=== PATIENT | female | born 1955 | race Caucasian/White ===

== ENCOUNTER 2016-07-08 13:50 | Outpatient (RCR) | payer MEDICARE ==
[~2016-07-08 13:50] MED LIST: ANAS1TAB44 PO; ASCO500T20 GT; ASP81CT PO; CA C1TAB70 PO; CALC-656 PO; CEPH500C PO; FURO20TA4 PO; GABA300C PO; HYDR-34 PO; HYDR-3714 PO; HYDR12.56 PO; INSASP10V SQ; INSU100C7 SQ; INSU100V5 SQ; LISI10TA2 PO; LISI20TA PO; METF-380 PO; OMEP20TA2 PO; OXYB5TAB9 PO; SIMV40TA PO; VITA1CAP59 PO; ZINC100T3 PO
[2016-07-08 14:04] LABS: BASOPHILS % (AUTO) 0 % (0-10); EOSINOPHILS # (AUTO) 0.2 10^3/uL (0.0-0.3); EOSINOPHILS % (AUTO) 3 % (0-10); LYMPHOCYTES # (AUTO) 2.3 X 10^3 (1.0-4.0); LYMPHOCYTES % (AUTO) 26 % (12-44); MEAN CORPUSCULAR HEMOGLOBIN 28 PG (25-34); MEAN CORPUSCULAR HGB CONC 32 G/DL (32-36); MEAN CORPUSCULAR VOLUME 86 FL (80-99); MEAN PLATELET VOLUME 9.9 FL (7.4-10.4); MONOCYTES # (AUTO) 0.6 X 10^3 (0.0-1.0); MONOCYTES % (AUTO) 7 % (0-12); NEUTROPHILS # (AUTO) 5.7 X 10^3 (1.8-7.8); NEUTROPHILS % (AUTO) 64 % (42-75); PLATELET COUNT 335 10^3/uL (130-400); RED BLOOD COUNT 4.97 10^6/uL (4.35-5.85)
[2016-07-08 15:21] LABS: ALANINE AMINOTRANSFERASE 21 U/L (0-55); ANION GAP 8 MMOL/L (5-14); ASPARTATE AMINO TRANSFERASE 19 U/L (5-34); BILIRUBIN,TOTAL 0.4 MG/DL (0.1-1.0); BLOOD UREA NITROGEN 16 MG/DL (7-18); BUN/CREATININE RATIO 19; CALCIUM 9.9 MG/DL (8.5-10.1); CARBON DIOXIDE 26 MMOL/L (21-32); CHLORIDE 107 MMOL/L (98-107); CREATININE SERUM 0.85 MG/DL (0.60-1.30); GFR ESTIMATED > 60; GLUCOSE 166 MG/DL (70-105); POTASSIUM 4.3 MMOL/L (3.6-5.0); SODIUM 141 MMOL/L (135-145); TOTAL PROTEIN 6.6 G/DL (6.4-8.2)
[2016-07-08 15:42] LABS: THYROID STIMULATING HORMONE 2.09 UIU/ML (0.35-4.94)
== END 2016-10-06 | disposition home or self-care (01) ==
LOC: ONC 13:50
PROVIDERS: ATTEND Internal Medicine Hematology & Oncology
DX: C50.911 Malignant neoplasm of unspecified site of right female breast (principal); Z85.41 Personal history of malignant neoplasm of cervix uteri; I10 Essential (primary) hypertension; E11.9 Type 2 diabetes mellitus without complications; E66.9 Obesity, unspecified; Z68.42 Body mass index [BMI] 45.0-49.9, adult; M25.559 Pain in unspecified hip; Z87.891 Personal history of nicotine dependence; Z79.899 Other long term (current) drug therapy; Z17.0 Estrogen receptor positive status [ER+]; Z90.710 Acquired absence of both cervix and uterus; Z92.3 Personal history of irradiation; Z92.21 Personal history of antineoplastic chemotherapy
CPT/HCPCS: 36415; 80053; 84439; 84443; 85025; 99213

== ENCOUNTER 2017-07-07 14:03 | Outpatient (RCR) | payer MEDICARE ==
[2017-07-07 14:19] LABS: BASOPHILS # (AUTO) 0.1 10^3/uL (0.0-0.1); BASOPHILS % (AUTO) 1 % (0-10); EOSINOPHILS # (AUTO) 0.1 10^3/uL (0.0-0.3); EOSINOPHILS % (AUTO) 1 % (0-10); HEMATOCRIT 43 % (35-52); HEMOGLOBIN 13.9 G/DL (11.5-16.0); LYMPHOCYTES # (AUTO) 2.5 X 10^3 (1.0-4.0); LYMPHOCYTES % (AUTO) 26 % (12-44); MEAN CORPUSCULAR HEMOGLOBIN 28 PG (25-34); MEAN CORPUSCULAR HGB CONC 32 G/DL (32-36); MEAN CORPUSCULAR VOLUME 87 FL (80-99); MEAN PLATELET VOLUME 10.3 FL (7.4-10.4); MONOCYTES # (AUTO) 0.7 X 10^3 (0.0-1.0); MONOCYTES % (AUTO) 7 % (0-12); NEUTROPHILS # (AUTO) 6.4 X 10^3 (1.8-7.8); NEUTROPHILS % (AUTO) 65 % (42-75); PLATELET COUNT 301 10^3/uL (130-400); RED BLOOD COUNT 4.97 10^6/uL (4.35-5.85); RED CELL DISTRIBUTION WIDTH 14.9 % (10.0-14.5); WHITE BLOOD COUNT 9.8 10^3/uL (4.3-11.0)
[2017-07-07 14:39] LABS: ALANINE AMINOTRANSFERASE 19 U/L (0-55); ALKALINE PHOSPHATASE 100 U/L (40-136); BILIRUBIN,TOTAL 0.6 MG/DL (0.1-1.0); BUN/CREATININE RATIO 18; CALCIUM 10.1 MG/DL (8.5-10.1); CARBON DIOXIDE 30 MMOL/L (21-32); CHLORIDE 107 MMOL/L (98-107); CREATININE SERUM 0.78 MG/DL (0.60-1.30); GFR ESTIMATED > 60; GLUCOSE 131 MG/DL (70-105); POTASSIUM 4.7 MMOL/L (3.6-5.0); SODIUM 141 MMOL/L (135-145); TOTAL PROTEIN 7.2 GM/DL (6.4-8.2)
== END 2017-10-05 | disposition home or self-care (01) ==
LOC: ONC 14:03
PROVIDERS: ATTEND Internal Medicine Hematology & Oncology
DX: Z08 Encounter for follow-up examination after completed treatment for malignant neoplasm (principal); Z85.3 Personal history of malignant neoplasm of breast; Z85.41 Personal history of malignant neoplasm of cervix uteri; I10 Essential (primary) hypertension; E11.9 Type 2 diabetes mellitus without complications; E66.9 Obesity, unspecified; Z68.42 Body mass index [BMI] 45.0-49.9, adult; F17.210 Nicotine dependence, cigarettes, uncomplicated; M25.561 Pain in right knee; M25.562 Pain in left knee; Z79.899 Other long term (current) drug therapy; Z17.0 Estrogen receptor positive status [ER+]; Z90.710 Acquired absence of both cervix and uterus; Z92.3 Personal history of irradiation; Z92.21 Personal history of antineoplastic chemotherapy
CPT/HCPCS: 36415; 80053; 85025; 99213

== ENCOUNTER → 2017-09-06 | Outpatient (CLI) | payer MEDICARE ==
--- NOTE | 2017-09-06 17:06 | Diagnostic Imaging Report ---
Bilateral screening mammogram 2D views with tomosynthesis The current study was also evaluated with a Computer Aided Detection (CAD) system. Indication: Screening. No current complaints stated on the questionnaire. COMPARISON: 09/02/2016. Findings: The breasts are composed of a scattered fibroglandular densities. There are post lumpectomy changes and surgical clips seen in the medial aspect of the right breast. Scattered benign-appearing calcifications are seen. Allowing for technique and positional differences, no suspicious change is seen. IMPRESSION: No significant change. ACR BI-RADS Category 2: Benign findings. Result letter will be mailed to the patient. Note: At least 10% of breast cancer is not imaged by mammography. Dictated by: Dictated on workstation # [id number]
== END ==
LOC: RAD 08:50
PROVIDERS: ATTEND Internal Medicine Hematology & Oncology
DX: Z12.31 Encounter for screening mammogram for malignant neoplasm of breast (principal)
CPT/HCPCS: 77067

== ENCOUNTER 2017-11-24 00:01 | Emergency (ER) | payer OTHER, MEDICARE ==
[~2017-11-24] VITALS: Ht 170.2 cm; Wt 137.4 kg
[2017-11-24] MEDS ORDERED: INSU100I29 (00:34)
[2017-11-24] MEDS ORDERED: INSU100I14 (00:34)
[2017-11-24] MEDS ORDERED: DICL75TA2 (00:34)
[2017-11-24] MEDS ORDERED: TRAM-42 PO (01:45)
[2017-11-24] MEDS ORDERED: CYCL10TA9 PO (01:45)
[2017-11-24] MEDS ORDERED: ORPHENADRINE 60 MG/2 ML (NORFLEX) AMP IM ONE (01:45)
[2017-11-24] MEDS ORDERED: KETOROLAC 60 MG/2 ML VIAL IM ONE (01:45)
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
[2017-11-24 01:53] VITALS: BP 184/79
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
== END 2017-11-24 01:53 | disposition home or self-care (01) ==
LOC: EDUNIT# 00:01 → ER 00:05
DX: S13.4XXA Sprain of ligaments of cervical spine, initial encounter (principal); S23.3XXA Sprain of ligaments of thoracic spine, initial encounter; S39.012A Strain of muscle, fascia and tendon of lower back, initial encounter; G89.29 Other chronic pain; E78.00 Pure hypercholesterolemia, unspecified; I10 Essential (primary) hypertension; K21.9 Gastro-esophageal reflux disease without esophagitis; E11.40 Type 2 diabetes mellitus with diabetic neuropathy, unspecified; F17.210 Nicotine dependence, cigarettes, uncomplicated; Z85.3 Personal history of malignant neoplasm of breast; Z88.8 Allergy status to other drugs, medicaments and biological substances; Z79.82 Long term (current) use of aspirin; Z79.84 Long term (current) use of oral hypoglycemic drugs; V49.40XA Driver injured in collision with unspecified motor vehicles in traffic accident, initial encounter
CPT/HCPCS: 70450; 72125; 72128; 72131; 73030; 96372

== ENCOUNTER 2018-02-21 05:52 | Outpatient (CLI) | payer MEDICARE ==
[~2018-02-21] VITALS: Ht 170.2 cm; Wt 132.7 kg
[~2018-02-21 05:52] MED LIST changes: +AMOX-358 PO; +ASPI-983 PO; +CYCL10TA9 PO; +DICL75TA2; +DICL75TA2 PO; +FURO-125 PO; +GABA-488 PO; +INSU100I14; +INSU100I14 SQ; +INSU100I29; +INSU100I29 SQ; +METF10002 PO; +NITR0.4T SL; +OMEG-109 PO; +OMEP20CA12 PO; +PANT40TA2 PO; +QUIN10TA PO; +QUIN20TA16 PO; +RT-ALBUINH IH; +SIMV40TA4 PO; +TRAM-42 PO; +VITA1CAP PO; +[UNRECOGNIZED DRUG - OTHER] IJ
[2018-02-21] MEDS ORDERED: QUIN20TA16 PO (10:27)
[2018-02-21] MEDS ORDERED: PANT40TA3 PO (10:27)
== END 2018-02-21 10:37 | disposition home or self-care (01) ==
LOC: PREOP 05:52
PROVIDERS: ATTEND Surgery
DX: Z01.818 Encounter for other preprocedural examination (principal)

== ENCOUNTER 2018-02-28 06:43 | Day surgery (SDC) | payer MEDICARE ==
[~2018-02-28] VITALS: Ht 170.2 cm; Wt 132.7 kg
[~2018-02-28 06:43] MED LIST changes: +PANT40TA3 PO
--- OUTSIDE RECORDS SUMMARY | 2018-02-28 07:03 | XMS REPORT ---
Author Author ELIAS BLAKE Organization [facility] Address [address] [place] [address] Care Team Providers Care Director Clinical Applications Name Role Phone ELIAS BLAKE Unavailable PROBLEMS Type Condition ICD9-CM Code ETO04-FY Code Onset Dates Condition Status SNOMED Code Problem Renal insufficiency N28.9 Active 835881615 Problem History of long-term use of multiple prescription drugs Z92.29 Active 745419690 Problem Gastroesophageal reflux disease without esophagitis K21.9 Active 600438835 Problem Iron deficiency anemia, unspecified iron deficiency anemia type D50.9 Active 63861872 Problem Low hemoglobin D64.9 Active 010037387 Problem Arthritis M19.90 Active 5809568 Problem Stress incontinence in female N39.3 Active 10019516 Problem Chronic obstructive pulmonary disease, unspecified COPD type J44.9 Active 67370345 Problem BMI 45.0-49.9, adult Z68.42 Active 885128092 Problem Gastrointestinal hemorrhage, unspecified K92.2 Active 76922185 Problem Iron deficiency anemia due to chronic blood loss D50.0 Active 813306324 Problem Lumbar back pain with radiculopathy affecting left lower extremity M54.17 Active 894847447 Problem [facility] current use of insulin Z79.4 Active 791322892 Problem Polyneuropathy associated with underlying disease G63 Active 408493565 Problem Tobacco abuse Z72.0 Active 49236372 Problem Type 2 diabetes mellitus with diabetic neuropathy E11.40 Active 61384249 Problem Essential hypertension I10 Active 90255980 ALLERGIES Substance Reaction Event Type Date Status Wellbutrin Unknown Drug Allergy Jul, Active Lovastatin Unknown Drug Allergy Jul, Active ENCOUNTERS Encounter Location Date Diagnosis [facility] [address] [facility] [id number] [place] [id number] Feb, Iron deficiency anemia due to chronic blood loss D50.0 [facility] [address] [id number] [id number] January, Iron deficiency anemia, unspecified iron deficiency anemia type D50.9 [address] [address] January, [id number] [place] [address] 29266- 2527 January, BMI 45.0-49.9, adult Z68.42 and Low hemoglobin D64.9 [address] [place] [id number] [place] [address] 31279- 6929 January, [address] [place] [id number] [place] [address] 92716- 5291 January, [facility] current use of insulin Z79.4 [address] [place] [id number] [place] [address] 74431- 4843 January, Chest congestion R09.89 ; Pneumonia of both lower lobes due to infectious organism J18.1 ; Chronic obstructive pulmonary disease, unspecified COPD type J44.9 and BMI 45.0-49.9, adult Z68.42 [id number] [place] [address] 74794- 2697 January, Breathing problem R06.9 ; Type 2 diabetes mellitus with diabetic neuropathy E11.40 ; [facility] current use of insulin Z79.4 ; Essential hypertension I10 ; Gastroesophageal reflux disease without esophagitis K21.9 ; Arthritis M19.90 ; Renal insufficiency N28.9 ; Stress incontinence in female N39.3 ; Polyneuropathy associated with underlying disease G63 ; BMI 45.0-49.9, adult Z68.42 and CAD (coronary artery disease) I25.10 [id number] [place] [address] 15331- 6312 Dec, [address] [id number] [place] [address] 19936- 6326 Dec, [address] [id number] [place] [address] 84903- 8087 Dec, [address] [id number] [place] [address] 88020- 3347 Nov, Type 2 diabetes mellitus with diabetic neuropathy E11.[address] [address]- [address]35 Oct, Arthritis M19.90 ; CAD (coronary artery disease) I25.10 ; Type 2 diabetes mellitus with diabetic neuropathy E11.40 ; [facility] current use of insulin Z79.4 ; Lumbar back pain with radiculopathy affecting left lower extremity M54.17 ; History of long-term use of multiple prescription drugs Z92.29 ; Essential hypertension I10 ; Renal insufficiency N28.9 ; Stress incontinence in female N39.3 ; Gastroesophageal reflux disease without esophagitis K21.9 ; Tobacco abuse Z72.0 and BMI 45.0-49.9, adult Z68.42 [id number] [place] [address] 36234- 8665 Aug, [address] 00933- 7781 Aug, [id number] [place] [address] 52085- 5362 Jul, CAD (coronary artery disease) I25.10 ; Type 2 diabetes mellitus with diabetic neuropathy E11.40 ; [facility] current use of insulin Z79.4 ; Lumbar back pain with radiculopathy affecting left lower extremity M54.17 ; History of long-term use of multiple prescription drugs Z92.29 ; Essential hypertension I10 ; Renal insufficiency N28.9 ; Stress incontinence in female N39.3 ; Gastroesophageal reflux disease without esophagitis K21.9 ; Tobacco abuse Z72.0 ; Arthritis M19.90 ; BMI 45.0-49.9, adult Z68.42 and Encounter for immunization Z23 [address] [id number] [place] [address] 31378- 2326 May, [id number] [place] [address] 59436- 7702 Apr, CAD (coronary artery disease) I25.10 ; Type 2 diabetes mellitus with diabetic neuropathy E11.40 ; [facility] current use of insulin Z79.4 ; Lumbar back pain with radiculopathy affecting left lower extremity M54.17 ; History of long-term use of multiple prescription drugs Z92.29 ; Essential hypertension I10 ; Renal insufficiency N28.9 ; Stress incontinence in female N39.3 ; Gastroesophageal reflux disease without esophagitis K21.9 and Tobacco abuse Z72.0 [address] [address]78- 3213 Mar, CAD (coronary artery disease) I25.10 and Type 2 diabetes mellitus with diabetic neuropathy E11.40 [address] 03432- 6266 Nov, Type 2 diabetes mellitus with diabetic neuropathy E11.40 ; [facility] current use of insulin Z79.4 ; Lumbar back pain with radiculopathy affecting left lower extremity M54.17 ; History of long-term use of multiple prescription drugs Z92.29 ; Essential hypertension I10 ; Renal insufficiency N28.9 ; Stress incontinence in female N39.3 ; Gastroesophageal reflux disease without esophagitis K21.9 ; CAD (coronary artery disease) I25.10 and Tobacco abuse Z72.0 [address] [place] 70410- 3076 Nov, [address] [id number] [place] [address] 08607- 5173 Aug, Type 2 diabetes mellitus with diabetic neuropathy E11.40 ; [facility] current use of insulin Z79.4 ; Lumbar back pain with radiculopathy affecting left lower extremity M54.17 ; History of long-term use of multiple prescription drugs Z92.29 ; Essential hypertension I10 ; Renal insufficiency N28.9 ; Stress incontinence in female N39.3 ; Gastroesophageal reflux disease without esophagitis K21.9 ; CAD (coronary artery disease) I25.10 ; Tobacco abuse Z72.0 and Encounter for immunization Z23 [address] [place] [id number] [place] [address] 58021- 3698 Jul, Type 2 diabetes mellitus with diabetic neuropathy E11.40 [place] [address] [place] [address] 62189- 9909 May, [facility] [id number] [place] [address] 74453- 4595 May, [facility] [id number] [place] [address] 12464- 6171 May, Type 2 diabetes mellitus with diabetic neuropathy E11.40 ; [facility] current use of insulin Z79.4 ; Lumbar back pain with radiculopathy affecting left lower extremity M54.17 ; History of long-term use of multiple prescription drugs Z92.29 ; Essential hypertension I10 ; Renal insufficiency N28.9 ; Stress incontinence in female N39.3 ; Gastroesophageal reflux disease without esophagitis K21.9 ; CAD (coronary artery disease) I25.10 and Tobacco abuse Z72.0 [facility] [id number] [place] [address] 15467- 8276 May, [facility] [id number] [place] [address] 04941- 8637 Apr, [facility] [id number] [place] [address] 18196- 8673 Apr, [facility] [id number] [place] [address] 74356- 3676 Mar, [facility] [address] [place] [address] 86970- 1065 Feb, [facility] [id number] [place] [address] 05119- 9826 Feb, [facility] [id number] [place] [address] 84040- 0807 Feb, [facility] [id number] [place] [address] 34991- 1720 Feb, [facility] [address] [place] [address] 47281- 1259 January, Type 2 diabetes mellitus with diabetic neuropathy E11.40 ; [facility] current use of insulin Z79.4 ; Lumbar back pain with radiculopathy affecting left lower extremity M54.17 ; History of long-term use of multiple prescription drugs Z92.29 ; Essential hypertension I10 ; Renal insufficiency N28.9 ; Stress incontinence in female N39.3 ; Gastroesophageal reflux disease without esophagitis K21.9 ; CAD (coronary artery disease) I25.10 and Tobacco abuse Z72.0 [address] [id number] [place] [address] 51738- 1643 January, [address] [place] [id number] [place] [address] 64861- 2166 Nov, [id number] [place] [address] 81403- 9914 Nov, [id number] [place] [address] 00074- 9432 Oct, [address] [id number] [place] [address] 57622- 3253 Sep, Type 2 diabetes mellitus with diabetic neuropathy E11.40 ; [facility] current use of insulin Z79.4 ; Lumbar back pain with radiculopathy affecting left lower extremity M54.17 and History of long-term use of multiple prescription drugs Z92.29 [address] [id number] [place] [address] 03140- 3175 Aug, [address] [place] [id number] [place] [address] 58056- 8192 Aug, Type 2 diabetes mellitus with diabetic neuropathy E11.40 ; [facility] current use of insulin Z79.4 ; Lumbar back pain with radiculopathy affecting left lower extremity M54.17 ; Polyneuropathy associated with underlying disease G63 ; Tobacco abuse Z72.0 ; Essential hypertension I10 ; Incontinence in female N39.3 ; CAD (coronary artery disease) I25.10 ; Gastroesophageal reflux disease without esophagitis K21.9 ; Renal insufficiency N28.9 and Right knee pain M25.561 [id number] [place] [address] 70976- 4383 Jul, Type 2 diabetes mellitus with diabetic neuropathy E11.40 ; [facility] current use of insulin Z79.4 ; Encounter for immunization Z23 ; Essential hypertension I10 ; Lumbar back pain with radiculopathy affecting left lower extremity M54.17 ; History of breast cancer Z85.3 and Polyneuropathy associated with underlying disease G63 [id number] [place] [address] 11458- 4473 Jun, [address] [id number] [place] [address] 94634- 3529 Jun, [address] [id number] [place] [address] 84850- 3821 May, [address] [id number] [place] [address] 86461- 7747 May, [address] [id number] [place] [address] 10862- 1393 May, [address] [id number] [place] [address] 63815- 2749 May, Pain in joint, lower leg 719.46 ; Unspecified arthropathy, site unspecified 716.90 and Back pain 724.5 [id number] [place] [address] 47086- 9267 May, Diabetes mellitus without mention of complication, type II or unspecified type, not stated as uncontrolled 250.00 ; Essential hypertension , benign 401.1 and Other chronic pain 338.29 [address] [place] [id number] [place] [address] 82125- 3761 Apr, [address] [id number] [place] [address] 84885- 1824 Mar, Shingles 053.9 ; Diabetes mellitus without mention of complication, type II or unspecified type, not stated as uncontrolled 250.00 and Skin infection 686.9 [id number] [place] [address] 64407- 1519 Mar, Back pain 724.5 ; Other chronic pain 338.29 and Pain in joint, lower leg 719.46 [address], [place] [address]- 6151 Mar, [address] [place] [address] 88039- 1347 Mar, Diabetes mellitus without mention of complication, type II or unspecified type, not stated as uncontrolled 250.00 [id number] [place] [address] 23737- 4929 Mar, Diabetes mellitus without mention of complication, type II or unspecified type, not stated as uncontrolled 250.00 [address] [id number] [place] [address] 24575- 4427 Mar, [address] [place] [address] 53747- 6256 Feb, Back pain 724.5 ; Abnormal finding on radiology exam 793.99 and History of breast cancer V10.3 [address] [place] [address] 00126- 8609 Feb, Onychomycosis 110.1 and Type I diabetes mellitus with neurological manifestations 250.61 [address], [place] [address]- 4887 Feb, [address], [place] [address]- 4794 Feb, Back pain 724.5 ; Abnormal finding on radiology exam 793.99 and History of breast cancer V10.3 [address] [place], [place] [address]- 8228 Feb, Abnormal finding on radiology exam 793.99 ; History of breast cancer V10.3 and Back pain 724.5 [address] [place] [address] 33132- 7867 January, [address] [id number] [place] [address] 70122- 1343 January, Abnormal finding on radiology exam 793.99 ; Back pain 724.5 and History of breast cancer V10.3 [facility] [address] [id number] [place] [address]- 0346 January, [facility] [address] [id number] [place] [address]22 January, [facility] [address] [id number] [place] 1995 January, [facility] [address] [id number] [place] [address]- 4376 Dec, [facility] [address] [id number] [place] [address]- 1947 Dec, [facility] [address] [facility] [id number] [place] [address]- 9898 Dec, [facility] [address] [id number] [place] [address]- 2906 Nov, [facility] [address] [id number] [place] [address]- 5793 Nov, [facility] [address] [facility] [id number], [place] [address]- 7659 Nov, [facility] [address] [id number] [place] [address]- 8757 Nov, [facility] [address] [id number], [place] [address]- 8147 Nov, [facility] [address] [id number] [place] 5446 Nov, [facility] [address] [id number] [place] [address]- 7846 Nov, [facility] [address] [id number], [place] [address]- 4416 Nov, [facility] [address] [id number], [place] [address]- 5046 Nov, [facility] [place] [facility] [address] [id number] [place] [address]- 1467 Nov, [facility] [place] [facility] [address] [id number] [place] [address]- 6833 Oct, 2014 [facility] [place] [facility] [address] [id number] [place] [address]- 0656 Oct, 2014 [facility] [place] [facility] [address] [id number] [place] [address]- 8325 Oct, 2014 [facility] [place] [facility] [address] [id number] [place] [address]- 1569 Oct, 2014 [facility] [place] [facility] [address] [id number] [place] [address]- 4113 Oct, 2014 [facility] [place] [facility] [address] [id number] [place] [address]- 2080 Oct, 2014 [facility] [place] [facility] [address] [id number] [place] [address]- 5048 Oct, 2014 [facility] [place] [facility] [address] [id number] [place] [address]- 3981 Oct, 2014 [facility] [place] [facility] [address] [facility] [id number] [place] [address]- 2800 Oct, [facility] [place] [facility] [address] [id number] [place] [address] 2542 Oct, 2014 [facility] [place] [facility] [address] [id number] [place] [address]- 2642 Oct, [facility] [place] [facility] [address] [id number] [place] [address]- 6314 Oct, [facility] [place] [facility] [address] [id number] [place] [address]- 2816 Sep, [facility] [place] [facility] [address] [id number] [place] [address]- 9983 Sep, [facility] [place] [facility] [address] [id number] [place] [address]- 4202 Sep, [facility] [place] [facility] [address] [id number] [place] [address]- 9069 Sep, [facility] [place] [facility] [address] [id number] [place] [address]- 2740 Sep, [facility] [place] [facility] [address] [id number] [place] [address]- 0835 Sep, [facility] [place] [facility] [address] [id number] [place] [address]- 2967 Sep, [facility] [place] [facility] [address] [id number] [place] [address]- 0018 Sep, [facility] [place] [facility] [address] [id number] [place] [address]- 6349 Sep, [facility] [place] [facility] [address] [id number] [place] [address]- 4283 Sep, [facility] [place] [facility] [address] [id number] [place] [address]- 9200 Sep, [facility] [place] [facility] [address] [id number], [place] [address]- 1233 Sep, [facility] [place] [facility] [address] [id number], [place] [address]- 4244 Sep, [facility] [place] [facility] [address] [id number], [place] [address]- 3994 Sep, [facility] [place] [facility] [address] [id number] [place] [address]- 2008 Sep, [facility] [place] [facility] [address] [id number], [place] [address]- 0839 Sep, [facility] [place] [facility] [address] [id number] [place] [address]- 3371 Aug, [facility] [place] [facility] [address] [id number] [place] [address]- 0912 23 Aug, 2014 [facility] [place] [facility] [address] [id number] [place] [address]- 8276 16 Aug, 2014 [facility] [place] [facility] [address] [id number] [place] [address]- 3906 16 Aug, 2014 [facility] [place] [facility] [address] [id number] [place] [address]- 0716 15 Aug, 2014 [facility] [place] [facility] [address] [id number] [place] [address]- 0210 15 Aug, 2014 [facility] [place] [facility] [address] [id number] [place] [address]- 2688 15 Aug, 2014 [facility] [place] [facility] [address] [id number] [place] [address]- 3593 15 Aug, 2014 [facility] [place] [facility] [address] [id number] [place] [address]- 7494 15 Aug, 2014 [facility] [place] [facility] [address] [id number] [place] [address]- 8472 15 Aug, 2014 [facility] [place] [facility] [address] [id number] [place] [address]- 7152 Aug, [facility] [place] [facility] [address] [id number] [place] [address]- 1593 Aug, [facility] [place] [facility] [address] [id number] [place] [address]- 8730 Aug, [facility] [place] [facility] [address] [id number] [place] [address]- 4031 Aug, [facility] [place] [facility] [address] [id number] [place] [address]- 3690 Jul, [facility] [place] [facility] [address] [id number] [place] [address]- 6063 Jul, [facility] [place] [facility] [address] [id number] [place] [address]- 7136 Jul, [facility] [place] [facility] [address] [id number] [place] [address]- 1451 Jul, [facility] [place] [facility] [address] [id number] [place] [address]- 6584 Jul, [facility] [place] [facility] [address] [id number] [place] [address]- 5386 Jul, [facility] [place] [facility] [address] [id number] [place] [address]- 6582 Jul, [facility] [place] [facility] [address] [id number] [place] [address]- 4392 Jul, [facility] [place] [facility] [address] [id number] [place] [address]- 3092 Jul, [facility] [place] [facility] [address] [id number] [place] [address]- 6974 Jul, [facility] [place] [facility] [address] [id number] [place] [address]- 7220 Jul, [facility] [place] [facility] [address] [id number] [place] [address]- 6656 Jul, [facility] [place] [facility] [address] [id number] [place] [address]- 7045 Jun, [facility] [place] [facility] [address] [id number] [place] [address]- 3298 Jun, [facility] [place] [facility] [address] [id number] [place] [address]- 4558 Jun, [facility] [place] [facility] [address] [id number] [place] [address]- 6031 Jun, [facility] [place] [facility] [address] [id number] [place] [address]- 1305 Jun, [facility] [place] [facility] [address] [id number] [place] [address]- 9762 Jun, [facility] [place] [facility] [address] [id number] [place] [address]- 0174 Jun, [facility] [place] [facility] [address] [id number] [place] [address]- 6994 Jun, [facility] [place] [facility] [address] [id number] [place] [address]- 9411 Jun, [facility] [place] [facility] [address] [id number] [place] [address]- 1476 Jun, [facility] [place] [facility] [address] [id number] [place] [address]- 3430 16 May, 2013 [facility] [place] [facility] [address] [id number] [place] [address]- 2886 16 May, 2014 [facility] [place] [facility] [address] [id number] [place] [address]- 3210 May, [facility] [place] [facility] [address] [id number] [place] [address]- 8273 May, [facility] [place] [facility] [address] [id number] [place] [address] May, [facility] [place] [facility] [address] [id number] [place] [address] May, [facility] [place] [facility] [address] [id number] [place] [address] May, [facility] [place] [facility] [address] [id number] [place] [address] May, [facility] [place] [facility] [address] [id number] [place] [address] May, [facility] [place] [facility] [address] [id number] [place] [address] May, [facility] [place] [facility] [address] [id number] [place] [address] Apr, [facility] [place] [facility] [address] [id number] [place] [address] Apr, [facility] [place] [facility] [address] [id number] [place] [address] Apr, [facility] [place] [facility] [address] [id number] [place] [address] Apr, [facility] [place] [facility] [address] [id number] [place] [address] Mar, [facility] [place] [facility] [address] [id number] [place] [address] Mar, [facility] [place] [facility] [address] [id number] [place] [address] Mar, [facility] [place] [facility] [address] [id number] [place] [address] Feb, [facility] [place] [facility] [address] [id number] [place] [address] Feb, [facility] [place] [facility] [address] [id number] [place] [address] Feb, [facility] [place] [facility] [address] [id number] [place] [address] Feb, [facility] [place] [facility] [address] [id number] [place] [address] Feb, [facility] [place] [facility] [address] [id number] [place] [address] Feb, [facility] [place] [facility] [address] [id number] [place] [address] January, [facility] [place] [facility] [address] [id number] [place] [address] January, [facility] [place] [facility] [address] [id number] [place] [address] January, [facility] [place] [facility] [address] [id number] [place] [address] 6796 January, [facility] [place] [facility] [address] [id number] [place] [address] 0658 January, [facility] [address] [id number] [place] [address] 6073 January, [facility] [place] [facility] [address] [id number] [place] [address] 0861 January, [facility] [place] [facility] [address] [id number] [place] [address] 4304 January, [facility] [place] [facility] [address] [id number] [place] [address] 6498 January, [facility] [address] [id number] [place] [address] 7074 January, [facility] [place] [facility] [address] [id number] [place] [address] 4203 Dec, [facility] [place] [facility] [address] [id number] [place] [address] 4319 Dec, [facility] [place] [facility] [address] [id number] [place] [address] 9028 Dec, [facility] [place] [facility] [address] [id number] [place] [address] 1558 Dec, [facility] [place] [facility] [address] [id number] [place] [address] 9134 Dec, [facility] [place] [facility] [address] [id number] [place] [address] 3422 Dec, [facility] [place] [facility] [address] [id number] [place] [address]- 0662 Dec, [facility] [place] [facility] [address] [id number] [place] [address]- 5145 Dec, [facility] [place] [facility] [address] [id number] [place] [address]- 9328 Dec, [facility] [place] [facility] [address] [id number] [place] [address] Dec, [facility] [place] [facility] [address] [id number] [place] [address]- 8055 Dec, [facility] [place] [facility] [address] [id number] [place] [address]- 4915 Dec, [facility] [place] [facility] [address] [id number] [place] [address] Dec, [facility] [place] [facility] [address] [id number] [place] [address]- 8567 Dec, [facility] [place] [facility] [address] [id number] [place] [address]- 4320 Dec, [facility] [place] [facility] [address] [id number] [place] [address]- 6356 Dec, [facility] [place] [facility] [address] [id number] [place] [address]- 2584 Nov, [facility] [place] [facility] [address] [id number] [place] [address]- 0510 Nov, [facility] [place] [facility] [address] [id number] [place] [address]- 1356 Nov, [facility] [place] [facility] [address] [id number] [place] [address] 1925 Nov, [facility] [place] [facility] [address] [facility] [id number] [place] [address]- 6731 Nov, [facility] [place] [facility] [address] [id number] [place] [address]- 6440 Nov, [facility] [place] [facility] [address] [id number] [place] [address]- 1205 Nov, [facility] [place] [facility] [address] [id number] [place] [address]- 3214 Nov, [facility] [place] [facility] [address] [id number] [place] [address]- 9096 Oct, [facility] [place] [facility] [address] [facility] [id number] [place] [address] 5091 Oct, [facility] [place] [facility] [address] [id number] [place] [address]- 6980 Oct, [facility] [place] [facility] [address] [id number] [place] [address]- 9426 Oct, [facility] [place] [facility] [address] [id number] [place] [address]- 9356 Oct, [facility] [place] [facility] [address] [id number] [place] [address]- 2186 Oct, [facility] [place] [facility] [address] [id number] [place] [address]- 1834 Oct, [facility] [place] [facility] [address] [id number] [place] [address]- 8545 Oct, [facility] [place] [facility] [address] [id number] [place] [address]- 1540 Sep, [facility] [place] [facility] [address] [id number] [place] [address]- 6668 Sep, [facility] [place] [facility] [address] [id number] [place] [address]- 2412 Aug, [facility] [place] [facility] [address] [id number] [place] [address]- 2949 Aug, [facility] [place] [facility] [address] [facility] [id number] [place] [address]- 5743 Aug, [facility] [place] [facility] [address] [id number] [place] [address]- 2588 Aug, [facility] [place] [facility] [address] [id number] [place] [address]- 5146 Aug, [facility] [place] [facility] [address] [id number] [place] [address] Aug, [facility] [place] [facility] [address] [id number] [place] [address] Jul, [facility] [place] [facility] [address] [id number] [place] [address]- 2295 Jul, [facility] [place] [facility] [address] [id number] [place] [address] 3016 Jul, [facility] [place] [facility] [address] [id number] [place] [address]- 9377 Jul, [facility] [place] [facility] [address] [id number] [place] [address]- 0435 Jun, [facility] [place] [facility] [address] [id number] [place] [address]- 7216 Jun, [facility] [place] [facility] [address] [id number] [place] [address]- 1018 Jun, [facility] [place] [facility] [address] [id number] [place] [address]- 7609 Jun, [facility] [place] [facility] [address] [id number] [place] [address]- 1217 Jun, [facility] [place] [facility] [address] [id number] [place] [address]- 4642 Jun, [facility] [place] [facility] [address] [id number] [place] [address]- 8872 May, [facility] [place] [facility] [address] [id number] [place] [address]- 0657 May, [facility] [place] [facility] [address] [id number] [place] [address]- 2627 Apr, [facility] [place] [facility] [address] [id number] [place] [address]- 2123 Apr, [facility] [place] [facility] [address] [id number] [place] [address]- 0910 Mar, [facility] [place] [facility] [address] [id number] [place] [address]- 4991 Mar, [facility] [place] [facility] [address] [id number] [place] [address]- 8420 Mar, [facility] [place] [facility] [address] [id number] [place] [address]- 2546 08 Mar, 2013 [facility] [address] [id number] [place] [address]- 5311 Feb, [facility] [address] [id number] [place] [address]- 2546 Feb, [facility] [address] [id number] [place] [address]- 3436 Feb, [facility] [address] [id number] [place] [address]- 7239 January, [facility] [address] [id number] [place] [address]- 7856 January, [facility] [address] [id number] [place] [address]- 8406 January, [facility] [address] [id number] [place] [address]- 7793 January, [facility] [address] [id number] [place] [address]- 9821 January, [facility] [address] [id number] [place] [address]- 8956 January, [facility] [address] [id number] [place] [address]- 4873 Dec, [facility] [address] [id number] [place] [address]- 4246 Dec, [facility] [address] [id number] [place] [address]- 8666 16 Dec, 2012 [facility] [address] [id number] [place] [address]- 2456 Nov, [facility] [address] [id number] [place] [address]- 2546 Nov, [facility] [address] [id number] [place] [address]- 3455 Nov, [facility] [address] [id number] [place] [address]- 9769 08 Nov, 2012 [facility] [place] [facility] [address] [id number] [place] [address]- 4426 Nov, [facility] [place] [facility] [address] [id number] [place] [address]- 6311 Nov, [facility] [place] [facility] [address] [id number] [place] [address]- 9738 Oct, [facility] [place] [facility] [address] [id number] [place] [address]- 2800 Oct, [facility] [place] [facility] [address] [id number] [place] [address]- 7439 Oct, [facility] [place] [facility] [address] [id number] [place] [address]- 6047 Oct, [facility] [place] [facility] [address] [id number] [place] [address]- 8331 06 Oct, 2012 [facility] [place] [facility] [address] [id number] [place] [address]- 9880 05 Oct, 2012 [facility] [place] [facility] [address] [id number] [place] [address]- 7928 Sep, [facility] [place] [facility] [address] [id number] [place] [address]- 0612 Sep, [facility] [place] [facility] [address] [id number] [place] [address]- 1717 10 Sep, 2012 [facility] [place] [facility] [address] [id number] [place] [address]- 0498 Aug, [facility] [place] [facility] [address] [id number] [place] [address]- 3285 Aug, [facility] [place] [facility] [address] [id number] [place] [address]- 0677 Aug, [facility] [place] [facility] [address] [id number] [place] [address]- 4825 Aug, [facility] [place] [facility] [address] [id number] [place] [address]- 3529 Jul, [facility] [place] [facility] [address] [id number] [place] [address]- 1270 Jul, [facility] [place] [facility] [address] [id number] [place] [address]- 5448 Jul, [facility] [place] [facility] [address] [id number] [place] [address]- 9366 Jul, [facility] [place] [facility] [address] [id number] [place] [address]- 9330 Jun, [facility] [place] [facility] [address] [id number] [place] [address]- 4903 Jun, [facility] [place] [facility] [address] [id number] [place] [address]- 4633 Jun, [facility] [place] [facility] [address] [id number] [place] [address]- 7079 Jun, [facility] [place] [facility] [address] [id number] [place] [address]- 6349 Jun, [facility] [place] [facility] [address] [facility] [id number] [place] [address]- 3081 Jun, [facility] [place] [facility] [address] [id number] [place] [address]- 5344 25 May, 2012 [facility] [place] [facility] [address] [id number] [place] [address]- 2119 23 May, 2012 [facility] [place] [facility] [address] [id number] [place] [address]- 4381 11 May, 2012 [facility] [place] [facility] [address] [id number] [place] [address]- 6998 10 May, 2012 [facility] [place] [facility] [address] [id number] [place] [address]- 3712 Apr, [facility] [place] [facility] [address] [id number] [place] [address]- 6445 Mar, [facility] [place] [facility] [address] [id number] [place] [address]- 5939 Mar, [facility] [place] [facility] [address] [id number] [place] [address]- 6099 Feb, [facility] [place] [facility] [address] [id number] [place] [address]- 8480 January, [facility] [place] [facility] [address] [id number] [place] [address]- 5235 January, [facility] [place] [facility] [address] [id number] [place] [address]- 9441 January, [facility] [place] [facility] [address] [id number] [place] [address]- 1248 January, [facility] [place] [facility] [address] [id number] [place] [address]- 3600 January, [facility] [place] [facility] [address] [id number] [place] [address]- 3115 January, [facility] [place] [facility] [address] [id number] [place] [address]- 6556 Dec, [facility] [place] [facility] [address] [id number] [place] [address]- 2281 Nov, [facility] [place] [facility] [address] [id number] [place] [address]- 2931 Nov, [facility] [place] [facility] [address] [id number] [place] [address]- 9312 Nov, [facility] [place] [facility] [address] [id number] [place] [address]- 3415 Nov, [facility] [place] [facility] [address] [id number] [place] [address] Nov, [facility] [place] [facility] [address] [id number], [place] [address] 2546 Nov, [facility] [address] [facility] [id number] [place] [address]- 9086 Nov, [facility] [address] [facility] [id number] [place] [address]- 3246 15 Oct, 2011 [facility] [address] [facility] [id number] [place] [address]- 2546 14 Oct, 2011 [facility] [address] [facility] [id number] [place] [address] 2546 08 Oct, 2011 [facility] [address] [id number] [place] [address]- 4966 Oct, [facility] [address] [id number] [place] [address]- 7126 Sep, [facility] [id number] [place] [address]- 0551 Sep, [facility] [address] [id number] [address]- 4293 Jun, [facility] [id number] [place] [address]- 9497 Mar, [facility] [address] [id number] [address]- 2526 Sep, [facility] [address] [id number], [place] [address]- 4996 Aug, [facility] [address] [id number] [address]- 2546 Jul, [facility] [address] [id number], [place] [address]- 1226 Jul, [facility] [address] [id number], [place] [address] 2546 Jun, [facility] [address] [id number], [place] [address]- 1336 Jun, IMMUNIZATIONS Vaccine Route Administration Date Status FLUARIX QUAD (3 AND UP) 2016 IM Intramuscular Aug 17, 2017 Administered SOCIAL HISTORY Never Assessed REASON FOR VISIT Diabetes----[place], bump on left side of head PLAN OF CARE Activity Details Follow Up 3 Months Reason:DM VITAL SIGNS Height 67 in 2017-08-17 Weight 309 lbs 2017-08-17 Temperature 99.0 degrees Fahrenheit 2017-08-17 Heart Rate 90 bpm 2017-08-17 Respiratory Rate 20 2017-08-17 BMI 48.39 kg/m2 2017-08-17 Blood pressure systolic 138 mmHg 2017-08-17 Blood pressure diastolic 74 mmHg 2017-08-17 MEDICATIONS Medication Instructions Dosage Frequency Start Date End Date Duration Status Lift Chair/Recliner as directed Mar, Active Fish Oil 1200 MG Orally Once a day 1 capsule 24h Active Gabapentin 300 MG Orally Three times a day (1 in am, 1 in afternoon, 2 at hs) 1-2 capsule Active Quinapril HCl 10 MG TAKE ONE TABLET BY MOUTH ONCE DAILY 30 Active Vitamin B Complex Active NovoLog Flexpen 100 UNIT/ML INJECT 30 TO 35 UNITS SUBCUTANEOUSLY TWICE DAILY 21 Active Oxybutynin Chloride 5 MG TAKE ONE TABLET BY MOUTH TWICE DAILY 30 Active Furosemide 20 mg Orally Once a day prn 1 tablet 30 Active Levemir FlexTouch 100 UNIT/ML Subcutaneous 2 times a day INJECT 45 UNITS TWICE DAILY 12h Active Aspir-81 81 MG Orally Once a day 1 tablet 24h Active Metformin HCl 1000 MG Orally Twice a day TAKE ONE TABLET BY MOUTH TWICE DAILY WITH FOOD 12h Active Oxybutynin Chloride 5 mg Orally Twice a day 1 tablet by Oral route 2 times per day 12h 30 Active Gabapentin 300 MG TAKE ONE CAPSULE BY MOUTH IN THE MORNING, ONE CAPSULE IN THE AFTERNOON AND TWO CAPSULES AT BEDTIME 30 Active Accupril 10 MG Orally Once a day 1 tablet by Oral route 1 time per day 24h Active Gabapentin 300 MG Take one capsule in the morning, one capsule in the afternoon, and two capsules in the evening Jul, 30 day(s) Active Diclofenac Sodium 75 MG Orally Twice a day 1 tablet with food or milk 12h Jul, Oct, 30 day(s) Active Simvastatin 40 mg Orally Once a day 1 tablet in the evening 24h 30 Active Omeprazole 20 mg Orally Once a day TAKE ONE CAPSULE BY MOUTH ONCE DAILY BEFORE A MEAL 24h 30 Active Lift Chair/Recliner as directed May, Active Nitrostat 0.4 mg 1 tablet by Sublingual route 3 times per day PRN chest pain; may repeat q 5 min x 2 Active Pen [place] 31G X 6 MM Irina Active Metformin HCl 1000 MG Orally Twice a day 1/2 tablet 12h Active NovoLog Flexpen 100 UNIT/ML Subcutaneous 2 times a day 35 units am and 30 units evening 12h Active Omeprazole 20 mg Orally Once a day TAKE ONE CAPSULE BY MOUTH ONCE DAILY BEFORE A MEAL 24h 30 Active RESULTS Name Result Date Reference Range A1C (IN HOUSE) 2017-08-17 A1C IN HOUSE 6.5 4.3 - 5.6 % Previous A1c 6.4 Lot [id number] Exp date 05/07 PROCEDURES Procedure Date Ordered Result Body Site GLYCATED HEMOGLOBIN TEST Aug 17, 2017 [facility] VISIT ESTABLISHED PATIENT Aug 17, 2017 FLUARIX QUAD (3 AND UP) 2016Aug 17, 2017 SINGLE IMMUNIZATION ADMIN Aug 17, 2017 INSTRUCTIONS MEDICATIONS ADMINISTERED No Known Medications MEDICAL (GENERAL) HISTORY Type Description Date Medical History hyperlipidemia Medical History hx of necrotizing fasciitis Jun 2008 Medical History obesity Medical History type II diabetes Medical History breast cancer-dx'd 2010 (lumpectomy, chemo/radiation, hormone tx) Medical History cervical cancer-dx'd 1985 s/p MARILEE Medical History Arthritis Medical History diabetic neuropathy Medical History hypertension Medical History chronic obstructive pulmonary disease (COPD) Medical History gastroesophageal reflux disease (GERD) Medical History Trigger finger (acquired) Medical History Radial styloid tenosynovitis Medical History Edema Medical History History of breast cancer Medical History gastrointestinal hemorrhage Medical History anemia Surgical History Debridement of necrotizing faciitis 06/2008, 03/2009 Surgical History Multiple breast biopsies Surgical History lumpectomy 10/2010 Surgical History Knee surgery 10/2014 Surgical History hysterectomy for cervical cancer (ovaries spared) Surgical History Heart cath - no CAD (Garett) 2005 Surgical History R eye cataract removed 2010 Surgical History L eye cataract removed 2017 Hospitalization History Surgeries only Hospitalization History double pneumonia
--- OUTSIDE RECORDS SUMMARY | 2018-02-28 07:06 | XMS REPORT ---
Author Author ELIAS BLAKE Organization [facility] Address [address] [place] [address] Care Team Providers Care Running Specialist Name Role Phone ELIAS BLAKE Unavailable PROBLEMS Type Condition ICD9-CM Code VGO88-CO Code Onset Dates Condition Status SNOMED Code Problem Renal insufficiency N28.9 Active 303080977 Problem History of long-term use of multiple prescription drugs Z92.29 Active 669661935 Problem Gastroesophageal reflux disease without esophagitis K21.9 Active 686327831 Problem Iron deficiency anemia, unspecified iron deficiency anemia type D50.9 Active 71693348 Problem Low hemoglobin D64.9 Active 429136815 Problem Arthritis M19.90 Active 6425704 Problem Stress incontinence in female N39.3 Active 71165643 Problem Chronic obstructive pulmonary disease, unspecified COPD type J44.9 Active 73064976 Problem BMI 45.0-49.9, adult Z68.42 Active 102352082 Problem Gastrointestinal hemorrhage, unspecified K92.2 Active 32868524 Problem Iron deficiency anemia due to chronic blood loss D50.0 Active 915713208 Problem Lumbar back pain with radiculopathy affecting left lower extremity M54.17 Active 209290507 Problem FCI current use of insulin Z79.4 Active 378554282 Problem Polyneuropathy associated with underlying disease G63 Active 011786576 Problem Tobacco abuse Z72.0 Active 34873479 Problem Type 2 diabetes mellitus with diabetic neuropathy E11.40 Active 64491075 Problem Essential hypertension I10 Active 85992360 ALLERGIES No Information ENCOUNTERS Encounter Location Date Diagnosis [facility] [address] [facility] [id number] [address] Feb, Iron deficiency anemia due to chronic blood loss D50.0 [facility] [address] [facility] [id number] [id number] January, Iron deficiency anemia, unspecified iron deficiency anemia type D50.9 [facility] [address] [address] January, [facility] [address] [place] [id number] [place] [address] 01475- 4643 January, BMI 45.0-49.9, adult Z68.42 and Low hemoglobin D64.9 [place] [id number] [place] [address] 08622- 2636 January, [facility] [address] [place] [id number] [place] [address] 50734- 2514 January, FCI current use of insulin Z79.4 [place] [id number] [place] [address] 22919- 5397 January, Chest congestion R09.89 ; Pneumonia of both lower lobes due to infectious organism J18.1 ; Chronic obstructive pulmonary disease, unspecified COPD type J44.9 and BMI 45.0-49.9, adult Z68.42 [facility] [address] [place] [id number] [place] [address] 51854- 2415 January, Breathing problem R06.9 ; Type 2 diabetes mellitus with diabetic neuropathy E11.40 ; FCI current use of insulin Z79.4 ; Essential hypertension I10 ; Gastroesophageal reflux disease without esophagitis K21.9 ; Arthritis M19.90 ; Renal insufficiency N28.9 ; Stress incontinence in female N39.3 ; Polyneuropathy associated with underlying disease G63 ; BMI 45.0-49.9, adult Z68.42 and CAD (coronary artery disease) I25.10 [facility] [id number] [place] [address] 05933- 1639 Dec, [place] [id number] [place] [address] 25886- 7505 Dec, [facility] [address] [place] [id number] [place] [address] 99572- 6637 Dec, [facility] [address] [place] [id number] [place] [address] 62535- 8893 Nov, Type 2 diabetes mellitus with diabetic neuropathy E11.40 [facility] [address] [place] [id number] [place] [address] 91922- 2793 Oct, Arthritis M19.90 ; CAD (coronary artery disease) I25.10 ; Type 2 diabetes mellitus with diabetic neuropathy E11.40 ; 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 ; Lumbar back pain with radiculopathy affecting left lower extremity M54.17 ; History of long-term use of multiple prescription drugs Z92.29 ; Essential hypertension I10 ; Renal insufficiency N28.9 ; Stress incontinence in female N39.3 ; Gastroesophageal reflux disease without esophagitis K21.9 ; Tobacco abuse Z72.0 and BMI 45.0-49.9, adult Z68.42 [facility] [address] [address]- 8067 Aug, [facility] [facility] [address] 08037- 9394 Aug, [facility] [address] 08965- 8248 Jul, CAD (coronary artery disease) I25.10 ; Type 2 diabetes mellitus with diabetic neuropathy E11.40 ; FCI current use of insulin Z79.4 ; Lumbar [...] adult Z68.42 and Encounter for immunization Z23 [facility] [address] [place] [id number] [place] [address] 41537- 6576 May, [facility] [address] [address]1354- 6751 Apr, CAD (coronary artery disease) I25.10 ; Type 2 diabetes mellitus with diabetic neuropathy E11.40 ; 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 ; Lumbar back pain with radiculopathy affecting left lower extremity M54.17 ; History of long-term use of multiple prescription drugs Z92.29 ; Essential hypertension I10 ; Renal insufficiency N28.9 ; Stress incontinence in female N39.3 ; Gastroesophageal reflux disease without esophagitis K21.9 and Tobacco abuse Z72.0 [facility] [address] [place] [id number] [place] [address] 45222- 9788 Mar, CAD (coronary artery disease) I25.10 and Type 2 diabetes mellitus with diabetic neuropathy E11.40 [facility] [address] [place] [id number] [place] [address] 30635- 0257 Nov, Type 2 diabetes mellitus with diabetic neuropathy E11.40 ; FCI current use of insulin Z79.4 ; Lumbar back pain with radiculopathy affecting left lower extremity M54.17 ; History of long-term use of multiple prescription drugs Z92.29 ; Essential hypertension I10 ; Renal insufficiency N28.9 ; Stress incontinence in female N39.3 ; Gastroesophageal reflux disease without esophagitis K21.9 ; CAD (coronary artery disease) I25.10 and Tobacco abuse Z72.0 [facility] [address] [place] [id number] [place] [address] 47697- 5572 Nov, [facility] [address] [place] [id number] [place] [address] 32671- 3680 Aug, Type 2 diabetes mellitus with diabetic neuropathy E11.40 ; FCI current use of insulin Z79.4 ; Lumbar back pain with radiculopathy affecting left lower extremity M54.17 ; History of long-term use of multiple prescription drugs Z92.29 ; Essential hypertension I10 ; Renal insufficiency N28.9 ; Stress incontinence in female N39.3 ; Gastroesophageal reflux disease without esophagitis K21.9 ; CAD (coronary artery disease) I25.10 ; Tobacco abuse Z72.0 and Encounter for immunization Z23 [facility] [address] [place] [id number] [place] [address] 25959- 4799 Jul, Type 2 diabetes mellitus with diabetic neuropathy E11.40 [facility] [address] [place] [id number] [place] [address] 11591- 5067 May, [facility] [address] [address] May, [facility] [address] [place] [id number] [place] [address] 87955- 1655 May, Type 2 diabetes mellitus with diabetic neuropathy E11.40 ; 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 ; Lumbar back pain with radiculopathy affecting left lower extremity M54.17 ; History of long-term use of multiple prescription drugs Z92.29 ; Essential hypertension I10 ; Renal insufficiency N28.9 ; Stress incontinence in female N39.3 ; Gastroesophageal reflux disease without esophagitis K21.9 ; CAD (coronary artery disease) I25.10 and Tobacco abuse Z72.0 [facility] [address] [place] [address] 45116- 8615 May, [facility] [address] [place] [id number] [place] [address] 89147- 7296 Apr, [facility] [address] [place] [id number] [place] [address] 19020- 1429 Apr, [facility] [address] [place] [id number] [place] [address] 64628- 8417 Mar, [facility] [address] [place] [id number] [place] [address] 92131- 9117 Feb, [facility] [address] [address]- 4350 Feb, [facility] [address] [place] [id number] [place] [address] 97032- 1244 Feb, [facility] [address] [place] [address] 89300- 4568 Feb, [facility] [address] [place] [address] 30712- 6072 January, Type 2 diabetes mellitus with diabetic neuropathy E11.40 ; 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 ; Lumbar back pain with radiculopathy affecting left lower extremity M54.17 ; History of long-term use of multiple prescription drugs Z92.29 ; Essential hypertension I10 ; Renal insufficiency N28.9 ; Stress incontinence in female N39.3 ; Gastroesophageal reflux disease without esophagitis K21.9 ; CAD (coronary artery disease) I25.10 and Tobacco abuse Z72.0 [facility] [address] [address]- 9446 January, [facility] [address] [place] [id number] [place] [address] 94895- 7200 Nov, [facility] [address] [place] [id number] [place] [address] 76922- 6215 Nov, [facility] [address] [place] [address] [id number] [place] [address] 33111- 6772 Oct, [facility] [address] [place] [id number] [place] [address] 75186- 8860 Sep, Type 2 diabetes mellitus with diabetic neuropathy E11.40 ; FCI current use of insulin Z79.4 ; Lumbar back pain with radiculopathy affecting left lower extremity M54.17 and History of long-term use of multiple prescription drugs Z92.29 [facility] [address] [place] [id number] [place] [address] 48234- 2218 Aug, [place] [address] [place] [id number] [place] [address] 57454- 0912 Aug, Type 2 diabetes mellitus with diabetic neuropathy E11.40 ; 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 ; Lumbar back pain with radiculopathy affecting left lower extremity M54.17 ; Polyneuropathy associated with underlying disease G63 ; Tobacco abuse Z72.0 ; Essential hypertension I10 ; Incontinence in female N39.3 ; CAD (coronary artery disease) I25.10 ; Gastroesophageal reflux disease without esophagitis K21.9 ; Renal insufficiency N28.9 and Right knee pain M25.561 [facility] [address] [place] [address] 13434- 0821 Jul, Encounter for immunization Z23 ; FCI current use of insulin Z79.4 ; Type 2 diabetes mellitus with diabetic neuropathy E11.40 ; Essential hypertension I10 ; Lumbar back pain with radiculopathy affecting left lower extremity M54.17 ; History of breast cancer Z85.3 and Polyneuropathy associated with underlying disease G63 [facility] [address], [place] [address]- 0082 Jun, [facility] [address] [place] [id number] [place] [address] 55513- 3937 Jun, [facility] [address] [place] [id number] [place] [address] 18357- 6959 May, [place] [address] [place] [id number] [place] [address] 94635- 3866 May, [place] [address] [place] [id number] [place] [address] 98148- 0296 May, [facility] [address] [place] [id number] [place] [address] 65158- 9779 May, Pain in joint, lower leg 719.46 ; Unspecified arthropathy, site unspecified 716.90 and Back pain 724.5 [facility] [address] [place] [id number] [place] [address] 86661- 5927 May, Diabetes mellitus without mention of complication, type II or unspecified type, not stated as uncontrolled 250.00 ; Essential hypertension , benign 401.1 and Other chronic pain 338.29 [place] [address] [place] [address] 37363- 9346 Apr, [place] [address] [place] [id number] [place] [address] 29453- 8852 Mar, Shingles 053.9 ; Diabetes mellitus without mention of complication, type II or unspecified type, not stated as uncontrolled 250.00 and Skin infection 686.9 [place] [address] [place] [address] 38027- 4037 Mar, Back pain 724.5 ; Other chronic pain 338.29 and Pain in joint, lower leg 719.46 [place] [address] [address]- 0634 Mar, [facility] [address], [place] [address]- 1885 Mar, Diabetes mellitus without mention of complication, type II or unspecified type, not stated as uncontrolled 250.00 [facility] [address], [place] [address]- 3224 Mar, Diabetes mellitus without mention of complication, type II or unspecified type, not stated as uncontrolled 250.00 [facility] [address], [place] [address]- 6946 Mar, [facility] [address] [place] [address] 13533- 8984 Feb, Back pain 724.5 ; Abnormal finding on radiology exam 793.99 and History of breast cancer V10.3 [facility] [address], [place] [address]- 2065 Feb, Onychomycosis 110.1 and Type I diabetes mellitus with neurological manifestations 250.61 [facility] [address], [place] [address]- 8855 Feb, [place] [address], [place] [address]- 1153 Feb, Back pain 724.5 ; Abnormal finding on radiology exam 793.99 and History of breast cancer V10.3 [place] [address] [place] [id number] [address]- 5716 Feb, Abnormal finding on radiology exam 793.99 ; History of breast cancer V10.3 and Back pain 724.5 [facility] [address], [place] [address]- 7217 January, [facility] [address] [place] [id number] [address]- 1013 January, Abnormal finding on radiology exam 793.99 ; Back pain 724.5 and History of breast cancer V10.3 [facility] [address] [id number] [place] [address]- 9971 January, [facility] [place] [facility] [address] [id number] [place] [address]- 8791 January, [facility] [place] [facility] [address] [id number] [place] [address]- 1090 January, [facility] [place] [facility] [address] [id number] [place] [address]- 3059 Dec, [facility] [place] [facility] [address] [id number] [place] [address]- 1247 Dec, [facility] [place] [facility] [address] [id number] [place] [address]- 0512 Dec, [facility] [place] [facility] [address] [id number] [place] [address]- 1456 Nov, [facility] [place] [facility] [address] [id number] [place] [address]- 2419 Nov, [facility] [place] [facility] [address] [id number] [place] [address]- 0313 Nov, [facility] [place] [facility] [address] [id number] [place] [address]- 0809 Nov, [facility] [place] [facility] [address] [id number] [place] [address]- 9781 Nov, [facility] [place] [facility] [address] [id number] [place] [address]- 6202 Nov, [facility] [place] [facility] [address] [id number] [place] [address]- 1696 Nov, [facility] [place] [facility] [address] [id number] [place] [address]- 0701 Nov, [facility] [place] [facility] [address] [facility] [id number] [place] [address]- 6494 16 Nov, 2014 [facility] [place] [facility] [address] [facility] [id number] [place] [address]- 0994 Nov, [facility] [place] [facility] [address] [id number] [place] [address]- 7721 Oct, 2014 [facility] [place] [facility] [address] [id number] [place] 5556 Oct, 2014 [facility] [place] [facility] [address] [id number] [place] [address]- 4124 Oct, 2014 [facility] [place] [facility] [address] [id number] [place] [address]- 5907 Oct, 2014 [facility] [place] [facility] [address] [id number] [place]- 3597 Oct, 2014 [facility] [place] [facility] [address] [facility] [id number] [place] [address]- 9086 Oct, 2014 [facility] [place] [facility] [address] [facility] [id number] [place] [address]- 9510 Oct, 2014 [facility] [place] [facility] [address] [facility] [id number] [place] [address]- 8683 Oct, 2014 [facility] [place] [facility] [address] [facility] [id number] [place] [address]- 5500 Oct, 2014 [facility] [place] [facility] [address] [facility] [id number] [place] [address]- 4428 Oct, 2014 [facility] [place] [facility] [address] [facility] [id number], [place] [address]- 9662 Oct, 2014 [facility] [place] [facility] [address] [facility] [id number] [place] [address]- 5006 Oct, [facility] [place] [facility] [address] [facility] [id number] [place] [address]- 3749 Sep, [facility] [place] [facility] [address] [facility] [id number] [place] [address]- 8096 Sep, [facility] [place] [facility] [address] [facility] [id number] [address]- 6178 Sep, [facility] [place] [facility] [address] [id number] [place] [address]- 9582 Sep, [facility] [place] [facility] [address] [id number] [place] [address]- 4617 Sep, [facility] [place] [facility] [address] [id number] [place] [address]- 9148 Sep, [facility] [place] [facility] [address] [id number] [place] [address]- 2237 Sep, [facility] [place] [facility] [address] [id number] [place] [address]- 5182 Sep, [facility] [place] [facility] [address] [id number] [place] [address]- 4084 Sep, [facility] [place] [facility] [address] [id number] [place] [address]- 2103 Sep, [facility] [place] [facility] [address] [id number] [place] [address]- 1714 Sep, [facility] [place] [facility] [address] [id number] [place] [address]- 7015 Sep, [facility] [place] [facility] [address] [id number] [place] [address]- 9102 Sep, [facility] [place] [facility] [address] [id number], [place] [address]- 0264 Sep, [facility] [place] [facility] [address] [id number], [place] [address]- 7810 Sep, [facility] [place] [facility] [address] [id number] [place] [address]- 8819 Sep, [facility] [place] [facility] [address] [id number] [place] [address]- 1874 Aug, [facility] [place] [facility] [address] [id number] [place] [address]- 5516 Aug, [facility] [place] [facility] [address] [id number] [place] [address]- 5900 16 Aug, 2014 [facility] [address] [id number] [place] [address]- 6602 16 Aug, 2014 [facility] [place] [facility] [address] [id number] [place] [address]- 2576 15 Aug, 2014 [facility] [place] [facility] [address] [id number] [place] [address]- 4776 15 Aug, 2014 [facility] [place] [facility] [address] [id number] [place] [address]- 7471 15 Aug, 2014 [facility] [place] [facility] [address] [id number] [place] [address]- 1731 15 Aug, 2014 [facility] [place] [facility] [address] [id number] [place] [address]- 2567 15 Aug, 2014 [facility] [place] [facility] [address] [id number] [place] [address]- 4061 15 Aug, 2014 [facility] [place] [facility] [address] [id number] [place] [address]- 3158 03 Aug, 2014 [facility] [place] [facility] [address] [id number] [place] [address]- 4676 Aug, [facility] [place] [facility] [address] [id number] [place] [address]- 9738 Aug, [facility] [place] [facility] [address] [id number] [place] [address]- 1510 Aug, [facility] [place] [facility] [address] [id number] [place] [address]- 2872 Jul, [facility] [place] [facility] [address] [id number] [place] [address]- 4723 Jul, [facility] [place] [facility] [address] [id number] [place] [address]- 2600 Jul, [facility] [place] [facility] [address] [id number] [place] [address]- 0164 Jul, [facility] [place] [facility] [address] [id number] [place] [address]- 8238 Jul, [facility] [place] [facility] [address] [id number] [place] [address]- 6196 Jul, [facility] [place] [facility] [address] [id number] [place] [address]- 8942 Jul, [facility] [place] [facility] [address] [id number] [place] [address]- 4382 Jul, [facility] [place] [facility] [address] [id number] [place] [address]- 3998 Jul, [facility] [place] [facility] [address] [id number] [place] [address]- 8326 Jul, [facility] [place] [facility] [address] [id number] [place] [address]- 2242 Jul, [facility] [place] [facility] [address] [id number] [place] [address]- 3127 Jul, [facility] [place] [facility] [address] [id number] [place] [address]- 2067 Jun, [facility] [place] [facility] [address] [id number] [place] [address]- 3529 Jun, [facility] [place] [facility] [address] [id number], [place] [address]- 0166 Jun, [facility] [place] [facility] [address] [id number], [place] [address]- 4481 Jun, [facility] [place] [facility] [address] [id number] [place] [address]- 1306 Jun, [facility] [place] [facility] [address] [id number] [place] [address]- 4631 Jun, [facility] [place] [facility] [address] [id number] [place] [address]- 4051 Jun, [facility] [place] [facility] [address] [id number] [place] [address]- 0706 Jun, [facility] [place] [facility] [address] [id number] [place] [address]- 8299 Jun, [facility] [place] [facility] [address] [id number] [place] [address]- 3362 Jun, [facility] [place] [facility] [address] [id number] [place] [address]- 8064 16 May, 2013 [facility] [place] [facility] [address] [id number] [place] [address]- 6422 16 May, 2013 [facility] [place] [facility] [address] [id number] [place] [address]- 7535 May, 2013 [facility] [place] [facility] [address] [id number] [place] [address] May, 2013 [facility] [place] [facility] [address] [id number] [place] [address] May, 2013 [facility] [place] [facility] [address] [id number] [place] [address] May, 2013 [facility] [place] [facility] [address] [id number] [place] [address] May, 2013 [facility] [place] [facility] [address] [id number] [place] [address] May, [facility] [place] [facility] [address] [id number] [place] [address] 2018 May, 2013 [facility] [place] [facility] [address] [id number] [place] [address] May, 2013 [facility] [place] [facility] [address] [id number] [place] [address] Apr, [facility] [place] [facility] [address] [id number] [place] [address] Apr, [facility] [place] [facility] [address] [id number] [place] [address] Apr, [facility] [place] [facility] [address] [id number] [place] [address] Apr, [facility] [place] [facility] [address] [id number] [place] [address] Mar, [facility] [place] [facility] [address] [id number] [place] [address] Mar, [facility] [place] [facility] [address] [id number] [place] [address] Mar, [facility] [place] [facility] [address] [id number] [place] [address] Feb, [facility] [place] [facility] [address] [id number] [place] [address] Feb, [facility] [place] [facility] [address] [id number] [place] [address] Feb, [facility] [place] [facility] [address] [id number] [place] [address] Feb, [facility] [place] [facility] [address] [id number] [place] [address] Feb, [facility] [place] [facility] [address] [id number] [place] [address] Feb, [facility] [place] [facility] [address] [id number] [place] [address] January, [facility] [place] [facility] [address] [id number] [place] [address] January, [facility] [place] [facility] [address] [id number] [place] [address] January, [facility] [place] [facility] [address] [id number] [place] [address] January, [facility] [place] [facility] [address] [id number] [place] [address] January, [facility] [place] [facility] [address] [id number] [place] [address] January, [facility] [place] [facility] [address] [id number] [place] [address] January, [facility] [place] [facility] [address] [id number] [place] [address] January, [facility] [place] [facility] [address] [address] [id number] [place] [address] January, [facility] [place] [facility] [address] [id number] [place] [address] January, [facility] [place] [facility] [address] [id number] [place] [address]85 Dec, [facility] [place] [facility] [address] [id number] [place] [address]794 Dec, [facility] [place] [facility] [address] [id number] [place] [address] 9186 Dec, [facility] [place] [facility] [address] [id number] [place] [address]237 Dec, [facility] [place] [facility] [address] [id number] [place] [address] 0068 Dec, [facility] [place] [facility] [address] [id number] [place] [address] 1818 Dec, [facility] [place] [facility] [address] [id number] [place] [address]497 Dec, [facility] [place] [facility] [address] [id number] [place] [address] 9125 Dec, [facility] [place] [facility] [address] [id number] [place] [address] 9747 Dec, [facility] [place] [facility] [address] [id number] [place] [address] 6391 Dec, [facility] [place] [facility] [address] [id number] [place] [address] 2136 Dec, [facility] [place] [facility] [address] [id number] [place] [address]- 8292 Dec, [facility] [place] [facility] [address] [id number] [place] [address]- 3302 Dec, [facility] [place] [facility] [address] [id number] [place] [address]- 8398 Dec, [facility] [place] [facility] [address] [id number] [place] [address]- 6840 Dec, [facility] [place] [facility] [address] [id number] [place] [address]- 1795 Dec, [facility] [place] [facility] [address] [id number] [place] [address] 0640 Nov, [facility] [place] [facility] [address] [id number] [place] [address]- 7179 Nov, [facility] [place] [facility] [address] [id number] [place] [address] 3566 Nov, [facility] [place] [facility] [address] [id number] [place] [address]- 5056 Nov, [facility] [place] [facility] [address] [id number] [place] [address]- 3093 Nov, [facility] [place] [facility] [address] [facility] [id number] [place] [address]- 8336 Nov, [facility] [place] [facility] [address] [id number] [place] [address]- 8412 Nov, [facility] [place] [facility] [address] [facility] [id number] [place] [address]- 5104 Nov, [facility] [place] [facility] [address] [id number] [place] [address]- 1405 Oct, [facility] [place] [facility] [address] [id number] [place] [address]- 0359 Oct, [facility] [place] [facility] [address] [id number] [place] [address]- 5424 Oct, [facility] [place] [facility] [address] [id number] [place] [address]- 7836 Oct, [facility] [place] [facility] [address] [id number] [place] [address]- 2646 Oct, [facility] [place] [facility] [address] [id number] [place] [address]- 4806 Oct, [facility] [place] [facility] [address] [id number] [place] [address] 1936 Oct, [facility] [place] [facility] [address] [id number] [place] [address]- 4396 Oct, [facility] [place] [facility] [address] [id number] [place] [address] 5701 Sep, [facility] [place] [facility] [address] [id number] [place] [address]- 0267 Sep, [facility] [place] [facility] [address] [id number] [place] [address] 9508 Aug, [facility] [place] [facility] [address] [id number] [place] [address]- 1306 Aug, [facility] [place] [facility] [address] [id number] [place] [address]- 5203 Aug, [facility] [place] [facility] [address] [id number] [place] [address]- 3118 Aug, [facility] [place] [facility] [address] [id number] [place] [address]- 3686 Aug, [facility] [place] [facility] [address] [id number] [place] [address] 0256 Aug, [facility] [place] [facility] [address] [id number] [place] [address]- 2046 Jul, [facility] [place] [facility] [address] [id number] [place] [address]- 9046 Jul, [facility] [place] [facility] [address] [id number] [place] [address] 2541 06 Jul, 2013 [facility] [place] [facility] [address] [id number] [place] [address]- 7965 Jul, [facility] [place] [facility] [address] [id number] [place] [address]- 5716 Jun, [facility] [place] [facility] [address] [id number] [place] [address]- 5857 Jun, [facility] [place] [facility] [address] [id number] [place] [address] 7803 Jun, [facility] [place] [facility] [address] [id number] [place] [address]- 3639 14 Jun, 2013 [facility] [place] [facility] [address] [id number] [place] [address]- 2542 Jun, [facility] [place] [facility] [address] [id number] [place] [address]- 2691 Jun, [facility] [place] [facility] [address] [id number] [place] [address]- 2361 May, [facility] [place] [facility] [address] [id number] [place] [address]- 3151 May, [facility] [place] [facility] [address] [id number] [place] [address]- 1088 Apr, [facility] [place] [facility] [address] [id number] [place] [address]- 0405 Apr, [facility] [place] [facility] [address] [id number] [place] [address]- 2541 Mar, [facility] [place] [facility] [address] [id number] [place] [address]- 0237 Mar, [facility] [place] [facility] [address] [id number] [place] [address]- 2547 Mar, [facility] [place] [facility] [address] [id number] [place] [address]- 2544 Mar, [facility] [place] [facility] [address] [id number] [place] [address]- 7332 Feb, [facility] [address] [id number] [place] [address]- 9763 Feb, [facility] [address] [id number] [place] [address]- 7499 Feb, [facility] [address] [id number] [place] [address] 0558 January, [facility] [address] [id number] [place] [address]- 5996 January, [facility] [address] [id number] [place] [address]- 5576 January, [facility] [address] [id number] [place] [address]- 9770 January, [facility] [address] [id number] [place] [address]- 7113 January, [facility] [address] [id number] [place] [address]- 4208 January, [facility] [address] [id number] [place] [address]- 1111 Dec, [facility] [address] [id number] [place] [address]- 7546 Dec, [facility] [address] [id number] [place] [address]- 2890 Dec, [facility] [address] [id number] [place] [address]- 8571 Nov, [facility] [place] [facility] [address] [id number] [place] [address]- 0422 Nov, [facility] [address] [id number] [place] [address]- 0771 Nov, [facility] [address] [id number] [place] [address]- 4230 08 Nov, 2012 [facility] [address] [id number] [place] [address]- 8118 Nov, [facility] [address] [id number] [place] [address]- 0426 Nov, [facility] [address] [id number] [place] [address]- 4196 28 Oct, 2012 [facility] [place] [facility] [address] [id number] [place] [address]- 6229 27 Oct, 2012 [facility] [address] [id number] [place] [address]- 8006 20 Oct, 2012 [facility] [address] [id number] [place] [address]- 9816 07 Oct, 2012 [facility] [address] [id number] [place] [address]- 1579 06 Oct, 2012 [facility] [address] [id number] [place] [address]- 6416 05 Oct, 2012 [facility] [address] [id number] [place] [address]- 9832 Sep, [facility] [address] [facility] [id number] [place] [address]- 7929 Sep, [facility] [address] [id number] [place] [address]- 8980 10 Sep, 2012 [facility] [place] [facility] [address] [id number] [place] [address]- 7375 Aug, [facility] [place] [facility] [address] [id number] [place] [address]- 2770 Aug, [facility] [place] [facility] [address] [id number] [place] [address]- 7891 Aug, [facility] [address] [id number] [place] [address]- 1578 Aug, [facility] [place] [facility] [address] [id number] [place] [address]- 7962 Jul, [facility] [place] [facility] [address] [id number] [place] [address]- 9853 Jul, [facility] [place] [facility] [address] [id number] [place] [address]- 0091 Jul, [facility] [place] [facility] [address] [id number] [place] [address]- 7670 Jul, [facility] [place] [facility] [address] [id number] [place] [address]- 8605 Jun, [facility] [place] [facility] [address] [id number] [place] [address]- 6036 Jun, [facility] [place] [facility] [address] [id number] [place] [address]- 1427 Jun, [facility] [place] [facility] [address] [id number] [place] [address]- 7376 Jun, [facility] [place] [facility] [address] [id number] [place] [address]- 7398 Jun, [facility] [place] [facility] [address] [id number] [place] [address]- 9897 Jun, [facility] [place] [facility] [address] [id number] [place] [address]- 8018 25 May, 2012 [facility] [place] [facility] [address] [id number] [place] [address]- 4930 23 May, 2012 [facility] [place] [facility] [address] [id number] [place] [address]- 2748 11 May, 2012 [facility] [place] [facility] [address] [id number] [place] [address]- 0059 10 May, 2012 [facility] [place] [facility] [address] [id number] [place] [address]- 1744 08 Apr, 2012 [facility] [place] [facility] [address] [id number] [place] [address]- 8846 Mar, [facility] [address] [id number] [place] [address]- 1337 Mar, [facility] [place] [facility] [address] [id number] [place] [address]- 6098 Feb, [facility] [place] [facility] [address] [id number] [place] [address]- 0405 January, [facility] [place] [facility] [address] [id number] [place] [address]- 9676 January, [facility] [place] [facility] [address] [id number] [place] [address]- 9624 January, [facility] [place] [facility] [address] [id number] [place] [address]- 9676 January, [facility] [place] [facility] [address] [id number] [place] [address]- 7264 January, [facility] [place] [facility] [address] [id number] [place] [address]- 4066 January, [facility] [place] [facility] [address] [id number] [place] [address]- 2783 Dec, [facility] [place] [facility] [address] [id number] [place] [address]- 3652 Nov, [facility] [place] [facility] [address] [id number] [place] [address]- 8170 Nov, [facility] [place] [facility] [address] [id number] [place] [address]- 6378 Nov, [facility] [place] [facility] [address] [id number] [place] [address]- 7824 Nov, [facility] [place] [facility] [address] [id number] [place] [address]- 2564 Nov, [facility] [place] [facility] [address] [id number] [place] [address]- 8555 Nov, [facility] [place] [facility] [id number], [place] [address]- 1666 Nov, [facility] [id number], [place] [address]- 6846 15 Oct, 2011 [facility] [address] [facility] [id number], [place] [address]- 6006 14 Oct, 2011 [facility] [id number], [place] [address]- 4716 Oct, [facility] [address] [facility] [id number], [place] [address]- 4446 Oct, [facility] [id number], [place] [address]- 3220 Sep, [facility] [address] [id number], [place] [address]- 2712 Sep, [facility] [id number], [place] [address]- 1217 Jun, [facility] [id number], [place] [address]- 8058 Mar, [facility] [id number] [address]25 Sep, [facility] [id number], [place] [address]- 8495 Aug, [facility] [id number], [place] [address]- 4271 Jul, [facility] [address] [id number], [place] [address]- 7057 Jul, [facility] [id number], [place] [address]- 4109 Jun, [facility] [address] [id number], [place] [address]- 3272 Jun, IMMUNIZATIONS No Known Immunizations SOCIAL HISTORY Never Assessed REASON FOR VISIT Rx faxed PLAN OF CARE VITAL SIGNS MEDICATIONS Unknown Medications RESULTS No Results PROCEDURES No Known procedures INSTRUCTIONS MEDICATIONS ADMINISTERED No Known Medications MEDICAL [...]
[2018-02-28] MEDS ORDERED: LACTATED RINGERS 1,000 ML IV STA (07:07)
[2018-02-28] MEDS ORDERED: LACTATED RINGERS 1,000 ML IV ONE (07:10)
[2018-02-28] MEDS ORDERED: LIDOCAINE TOPICAL 4% 50 ML BTL ONE (07:10)
--- OUTSIDE RECORDS SUMMARY | 2018-02-28 07:11 | XMS REPORT | Continuity of Care Document ---
Author Author [facility] Address Unknown Phone Unavailable Allergies Active Description Code Type Severity Reaction Onset Reported/Identified Relationship to Patient Clinical Status Yes bupropion [id number] Drug Allergy Unknown N/A 01/11/2006 Yes Wellbutrin Drug Allergy N/A N/A 04/24/2009 Yes Percocet 5/325 Drug Allergy 04/24/2009 Yes Wellbutrin Drug Allergy 04/24/2009 Yes lovastatin Drug Allergy N/A N/A 07/30/2010 Yes lovastatin Drug Allergy 07/30/2010 Medications There is no data. Problems Date Dx Coded Attending Type Code Diagnosis Diagnosed By 07/17/2008 Ot 041.85 07/17/2008 Ot 250.02 07/17/2008 Ot 263.9 07/17/2008 Ot 272.4 07/17/2008 Ot 285.9 07/17/2008 Ot 305.1 07/17/2008 Ot 401.9 07/17/2008 Ot 496 07/17/2008 Ot 728.86 07/17/2008 Ot 788.30 07/17/2008 Ot V10.41 07/17/2008 Ot V12.51 07/17/2008 Ot V45.77 04/24/2009 250.02 DIABETES MELLITUS POORLY CONTROLLED 04/24/2009 272.4 HYPERLIPIDEMIA UNSPECIFIED 04/24/2009 278.00 OBESITY UNSPECIFIED 04/24/2009 530.81 GERD 04/24/2009 250.02 DIABETES MELLITUS POORLY CONTROLLED 04/24/2009 272.4 HYPERLIPIDEMIA UNSPECIFIED 04/24/2009 278.00 OBESITY UNSPECIFIED 04/24/2009 530.81 GERD 04/24/2009 250.02 DIABETES MELLITUS POORLY CONTROLLED 04/24/2009 272.4 HYPERLIPIDEMIA UNSPECIFIED 04/24/2009 278.00 OBESITY UNSPECIFIED 04/24/2009 530.81 GERD 04/24/2009 250.02 DIABETES MELLITUS POORLY CONTROLLED 04/24/2009 272.4 HYPERLIPIDEMIA UNSPECIFIED 04/24/2009 278.00 OBESITY UNSPECIFIED 04/24/2009 530.81 GERD 04/24/2009 DAVISON DO, VANESSA K 250.02 DIABETES MELLITUS POORLY CONTROLLED 04/24/2009 DAVISON DO, VANESSA K 272.4 HYPERLIPIDEMIA UNSPECIFIED 04/24/2009 DAVISON DO, VANESSA K 278.00 OBESITY UNSPECIFIED 04/24/2009 DAVISON DO, VANESSA K 530.81 GERD 04/24/2009 [facility] JAZZY VILLEGAS, CRISPIN A 250.02 DIABETES MELLITUS POORLY CONTROLLED 04/24/2009 [facility] JAZZY VILLEGAS, CRISPIN A 272.4 HYPERLIPIDEMIA UNSPECIFIED 04/24/2009 [facility] JAZZY VILLEGAS, CRISPIN A 278.00 OBESITY UNSPECIFIED 04/24/2009 [facility] JAZZY VILLEGAS, CRISPIN A 530.81 GERD 04/24/2009 DAVISON DO, VANESSA K 250.02 DIABETES MELLITUS POORLY CONTROLLED 04/24/2009 DAVISON DO, VANESSA K 272.4 HYPERLIPIDEMIA UNSPECIFIED 04/24/2009 DAVISON DO, VANESSA K 278.00 OBESITY UNSPECIFIED 04/24/2009 DAVISON DO, VANESSA K 530.81 GERD 04/24/2009 DAVISON DO, VANESSA K 250.02 DIABETES MELLITUS POORLY CONTROLLED 04/24/2009 DAVISON DO, VANESSA K 272.4 HYPERLIPIDEMIA UNSPECIFIED 04/24/2009 DAVISON DO, VANESSA K 278.00 OBESITY UNSPECIFIED 04/24/2009 DAVISON DO, VANESSA K 530.81 GERD 04/24/2009 DAVISON DO, VANESSA K 250.02 DIABETES MELLITUS POORLY CONTROLLED 04/24/2009 DAVISON DO, VANESSA K 272.4 HYPERLIPIDEMIA UNSPECIFIED 04/24/2009 DAVISON DO, VANESSA K 278.00 OBESITY UNSPECIFIED 04/24/2009 DAVISON DO, VANESSA K 530.81 GERD 04/24/2009 250.02 DIABETES MELLITUS POORLY CONTROLLED 04/24/2009 272.4 HYPERLIPIDEMIA UNSPECIFIED 04/24/2009 278.00 OBESITY UNSPECIFIED 04/24/2009 530.81 GERD 04/24/2009 250.02 DIABETES MELLITUS POORLY CONTROLLED 04/24/2009 272.4 HYPERLIPIDEMIA UNSPECIFIED 04/24/2009 278.00 OBESITY UNSPECIFIED 04/24/2009 530.81 GERD 04/24/2009 250.02 DIABETES MELLITUS POORLY CONTROLLED 04/24/2009 272.4 HYPERLIPIDEMIA UNSPECIFIED 04/24/2009 278.00 OBESITY UNSPECIFIED 04/24/2009 530.81 GERD 04/24/2009 250.02 DIABETES MELLITUS POORLY CONTROLLED 04/24/2009 272.4 HYPERLIPIDEMIA UNSPECIFIED 04/24/2009 278.00 OBESITY UNSPECIFIED 04/24/2009 530.81 GERD 04/24/2009 250.02 DIABETES MELLITUS POORLY CONTROLLED 04/24/2009 272.4 HYPERLIPIDEMIA UNSPECIFIED 04/24/2009 278.00 OBESITY UNSPECIFIED 04/24/2009 530.81 GERD 04/24/2009 250.02 DIABETES MELLITUS POORLY CONTROLLED 04/24/2009 272.4 HYPERLIPIDEMIA UNSPECIFIED 04/24/2009 278.00 OBESITY UNSPECIFIED 04/24/2009 530.81 GERD 04/24/2009 250.02 DIABETES MELLITUS POORLY CONTROLLED 04/24/2009 272.4 HYPERLIPIDEMIA UNSPECIFIED 04/24/2009 278.00 OBESITY UNSPECIFIED 04/24/2009 530.81 GERD 04/24/2009 DAVISON DO, VANESSA K 250.02 DIABETES MELLITUS POORLY CONTROLLED 04/24/2009 DAVISON DO, VANESSA K 272.4 HYPERLIPIDEMIA UNSPECIFIED 04/24/2009 DAVISON DO, VANESSA K 278.00 OBESITY UNSPECIFIED 04/24/2009 DAVISON DO, VANESSA K 530.81 GERD 04/24/2009 OLIVER ANGELES MD 250.02 DIABETES MELLITUS POORLY CONTROLLED 04/24/2009 OLIVER ANGELES MD 272.4 HYPERLIPIDEMIA UNSPECIFIED 04/24/2009 OLIVER ANGELES MD 278.00 OBESITY UNSPECIFIED 04/24/2009 OLIVER ANGELES MD 530.81 GERD 04/24/2009 DAVISON DO, VANESSA K 250.02 DIABETES MELLITUS POORLY CONTROLLED 04/24/2009 DAVISON DO, VANESSA K 272.4 HYPERLIPIDEMIA UNSPECIFIED 04/24/2009 DAVISON DO, VANESSA K 278.00 OBESITY UNSPECIFIED 04/24/2009 DAVISON DO VANESSA K 530.81 GERD 04/24/2009 OLIVER ANGELES MD 250.02 DIABETES MELLITUS POORLY CONTROLLED 04/24/2009 OLIVER ANGELES MD 272.4 HYPERLIPIDEMIA UNSPECIFIED 04/24/2009 OLIVER ANGELES MD 278.00 OBESITY UNSPECIFIED 04/24/2009 OLIVER ANGELES MD 530.81 GERD 04/24/2009 OLIVER ANGELES MD 250.02 DIABETES MELLITUS POORLY CONTROLLED 04/24/2009 OLIVER ANGELES MD 272.4 HYPERLIPIDEMIA UNSPECIFIED 04/24/2009 OLIVER ANGELES MD 278.00 OBESITY UNSPECIFIED 04/24/2009 OLIVER ANGELES MD 530.81 GERD 04/24/2009 KARTHIK VILLEGAS, OLIVER Lamb 250.02 DIABETES MELLITUS POORLY CONTROLLED 04/24/2009 KARTHIK VILLEGAS, OLIVER Lamb 272.4 HYPERLIPIDEMIA UNSPECIFIED 04/24/2009 KARTHIK VILLEGAS, OLIVER Lamb 278.00 OBESITY UNSPECIFIED 04/24/2009 KARTHIK VILLEGAS, OLIVER Lamb 530.81 GERD 04/24/2009 BONY ESPOSITO MD 250.02 DIABETES MELLITUS POORLY CONTROLLED 04/24/2009 BONY ESPOSITO MD 272.4 HYPERLIPIDEMIA UNSPECIFIED 04/24/2009 BONY ESPOSITO MD 278.00 OBESITY UNSPECIFIED 04/24/2009 CATE VILLEGAS, BONY 530.81 GERD 04/24/2009 MOY CUEVAS LISE T 250.02 DIABETES MELLITUS POORLY CONTROLLED 04/24/2009 LISE WINTER APRN T 272.4 HYPERLIPIDEMIA UNSPECIFIED 04/24/2009 MOY CUEVAS LISE T 278.00 OBESITY UNSPECIFIED 04/24/2009 MOY CUEVAS LISE T 530.81 GERD 04/24/2009 DAVISON DO, VANESSA K 250.02 DIABETES MELLITUS POORLY CONTROLLED 04/24/2009 DAVISON DO, VANESSA K 272.4 HYPERLIPIDEMIA UNSPECIFIED 04/24/2009 DAVISON DO, VANESSA K 278.00 OBESITY UNSPECIFIED 04/24/2009 DAVISON DO, VANESSA K 530.81 GERD 04/24/2009 MADL DENTAL HYGIENE INSTRUCTOR, ELIAS L 250.02 DIABETES MELLITUS POORLY CONTROLLED 04/24/2009 MADL DENTAL HYGIENE INSTRUCTOR, ELIAS L 272.4 HYPERLIPIDEMIA UNSPECIFIED 04/24/2009 MADL DENTAL HYGIENE INSTRUCTOR, ELIAS L 278.00 OBESITY UNSPECIFIED 04/24/2009 MADL DENTAL HYGIENE INSTRUCTOR, ELIAS L 530.81 GERD 04/24/2009 MADL DENTAL HYGIENE INSTRUCTOR, ELIAS L 250.02 DIABETES MELLITUS POORLY CONTROLLED 04/24/2009 MADL DENTAL HYGIENE INSTRUCTOR, ELIAS L 272.4 HYPERLIPIDEMIA UNSPECIFIED 04/24/2009 MADL DENTAL HYGIENE INSTRUCTOR, ELIAS L 278.00 OBESITY UNSPECIFIED 04/24/2009 MADL DENTAL HYGIENE INSTRUCTOR, ELIAS L 530.81 GERD 04/24/2009 DAVISON DO, VANESSA K 250.02 DIABETES MELLITUS POORLY CONTROLLED 04/24/2009 DAVISON DO, VANESSA K 272.4 HYPERLIPIDEMIA UNSPECIFIED 04/24/2009 DAVISON DO, VANESSA K 278.00 OBESITY UNSPECIFIED 04/24/2009 DAVISON DO, VANESSA K 530.81 GERD 04/24/2009 DAVISON DO, VANESSA K 250.02 DIABETES MELLITUS POORLY CONTROLLED 04/24/2009 DAVISON DO, VANESSA K 272.4 HYPERLIPIDEMIA UNSPECIFIED 04/24/2009 DAVISON DO, VANESSA K 278.00 OBESITY UNSPECIFIED 04/24/2009 DAVISON DO, VANESSA K 530.81 GERD 04/24/2009 MADL DENTAL HYGIENE INSTRUCTOR, ELIAS L 250.02 DIABETES MELLITUS POORLY CONTROLLED 04/24/2009 MADL DENTAL HYGIENE INSTRUCTOR, ELIAS L 272.4 HYPERLIPIDEMIA UNSPECIFIED 04/24/2009 MADL DENTAL HYGIENE INSTRUCTOR, ELIAS L 278.00 OBESITY UNSPECIFIED 04/24/2009 MADL DENTAL HYGIENE INSTRUCTOR, ELIAS L 530.81 GERD 04/24/2009 MADL DENTAL HYGIENE INSTRUCTOR, ELIAS L 250.02 DIABETES MELLITUS POORLY CONTROLLED 04/24/2009 MADL DENTAL HYGIENE INSTRUCTOR, ELIAS L 272.4 HYPERLIPIDEMIA UNSPECIFIED 04/24/2009 MADL DENTAL HYGIENE INSTRUCTOR, ELIAS L 278.00 OBESITY UNSPECIFIED 04/24/2009 MADL DENTAL HYGIENE INSTRUCTOR, ELIAS L 530.81 GERD 04/24/2009 DAVISON DO, VANESSA K 250.02 DIABETES MELLITUS POORLY CONTROLLED 04/24/2009 DAVISON DO, VANESSA K 272.4 HYPERLIPIDEMIA UNSPECIFIED 04/24/2009 DAVISON DO, VANESSA K 278.00 OBESITY UNSPECIFIED 04/24/2009 DAVISON DO, VANESSA K 530.81 GERD 04/24/2009 MADL DENTAL HYGIENE INSTRUCTOR, ELIAS L 250.02 DIABETES MELLITUS POORLY CONTROLLED 04/24/2009 MADL DENTAL HYGIENE INSTRUCTOR, ELIAS L 272.4 HYPERLIPIDEMIA UNSPECIFIED 04/24/2009 MADL DENTAL HYGIENE INSTRUCTOR, ELIAS L 278.00 OBESITY UNSPECIFIED 04/24/2009 MADL DENTAL HYGIENE INSTRUCTOR, ELIAS L 530.81 GERD 04/24/2009 DAVISON DO, VANESSA K 250.02 DIABETES MELLITUS POORLY CONTROLLED 04/24/2009 DAVISON DO, VANESSA K 272.4 HYPERLIPIDEMIA UNSPECIFIED 04/24/2009 DAVISON DO, VANESSA K 278.00 OBESITY UNSPECIFIED 04/24/2009 DAVISON DO, VANESSA K 530.81 GERD 04/24/2009 MADL DENTAL HYGIENE INSTRUCTOR, ELIAS L 250.02 DIABETES MELLITUS POORLY CONTROLLED 04/24/2009 MADL DENTAL HYGIENE INSTRUCTOR, ELIAS L 272.4 HYPERLIPIDEMIA UNSPECIFIED 04/24/2009 MADL DENTAL HYGIENE INSTRUCTOR, ELIAS L 278.00 OBESITY UNSPECIFIED 04/24/2009 MADL DENTAL HYGIENE INSTRUCTOR, ELIAS L 530.81 GERD 04/24/2009 DAVISON DO, VANESSA K 250.02 DIABETES MELLITUS POORLY CONTROLLED 04/24/2009 DAVISON DO, VANESSA K 272.4 HYPERLIPIDEMIA UNSPECIFIED 04/24/2009 DAVISON DO, VANESSA K 278.00 OBESITY UNSPECIFIED 04/24/2009 DAVISON DO, VANESSA K 530.81 GERD 04/24/2009 MADL DENTAL HYGIENE INSTRUCTOR, ELIAS L 250.02 DIABETES MELLITUS POORLY CONTROLLED 04/24/2009 MADL DENTAL HYGIENE INSTRUCTOR, ELIAS L 272.4 HYPERLIPIDEMIA UNSPECIFIED 04/24/2009 MADL DENTAL HYGIENE INSTRUCTOR, ELIAS L 278.00 OBESITY UNSPECIFIED 04/24/2009 MADL DENTAL HYGIENE INSTRUCTOR, ELIAS L 530.81 GERD 05/22/2009 477.9 ALLERGIC RHINITIS 05/22/2009 844.9 Knee Sprain 05/22/2009 477.9 ALLERGIC RHINITIS 05/22/2009 844.9 Knee Sprain 05/22/2009 477.9 ALLERGIC RHINITIS 05/22/2009 844.9 Knee Sprain 05/22/2009 477.9 ALLERGIC RHINITIS 05/22/2009 844.9 Knee Sprain 05/22/2009 DAVISON DO, VANESSA K 477.9 ALLERGIC RHINITIS 05/22/2009 DAVISON DO, VANESSA K 844.9 Knee Sprain 05/22/2009 CRISPIN MUNSON MD A 477.9 ALLERGIC RHINITIS 05/22/2009 CRISPIN MUNSON MD A 844.9 Knee Sprain 05/22/2009 DAVISON DO, VANESSA K 477.9 ALLERGIC RHINITIS 05/22/2009 DAVISON DO, VANESSA K 844.9 Knee Sprain 05/22/2009 DAVISON DO, VANESSA K 477.9 ALLERGIC RHINITIS 05/22/2009 DAVISON DO, VANESSA K 844.9 Knee Sprain 05/22/2009 DAVISON DO, VANESSA K 477.9 ALLERGIC RHINITIS 05/22/2009 DAVISON DO, VANESSA K 844.9 Knee Sprain 05/22/2009 477.9 ALLERGIC RHINITIS 05/22/2009 844.9 Knee Sprain 05/22/2009 477.9 ALLERGIC RHINITIS 05/22/2009 844.9 Knee Sprain 05/22/2009 477.9 ALLERGIC RHINITIS 05/22/2009 844.9 Knee Sprain 05/22/2009 477.9 ALLERGIC RHINITIS 05/22/2009 844.9 Knee Sprain 05/22/2009 477.9 ALLERGIC RHINITIS 05/22/2009 844.9 Knee Sprain 05/22/2009 477.9 ALLERGIC RHINITIS 05/22/2009 844.9 Knee Sprain 05/22/2009 477.9 ALLERGIC RHINITIS 05/22/2009 844.9 Knee Sprain 05/22/2009 DAVISON DO VANESSA K 477.9 ALLERGIC RHINITIS 05/22/2009 DAVISON DO VANESSA K 844.9 Knee Sprain 05/22/2009 OLIVER ANGELES MD 477.9 ALLERGIC RHINITIS 05/22/2009 OLIVER ANGELES MD 844.9 Knee Sprain 05/22/2009 DAVISON DOVANESSA K 477.9 ALLERGIC RHINITIS 05/22/2009 DAVISON DOPEÑAA K 844.9 Knee Sprain 05/22/2009 OLIVER ANGELES MD 477.9 ALLERGIC RHINITIS 05/22/2009 OLIVER ANGELES MD 844.9 Knee Sprain 05/22/2009 OLIVER ANGELES MD 477.9 ALLERGIC RHINITIS 05/22/2009 OLIVER ANGELES MD 844.9 Knee Sprain 05/22/2009 OLIVER ANGELES MD 477.9 ALLERGIC RHINITIS 05/22/2009 OLIVER ANGELES MD 844.9 Knee Sprain 05/22/2009 BONY ESPOSITO MD 477.9 ALLERGIC RHINITIS 05/22/2009 BONY ESPOSITO MD 844.9 Knee Sprain 05/22/2009 LISE WINTER APRN 477.9 ALLERGIC RHINITIS 05/22/2009 LISE WINTER APRN 844.9 Knee Sprain 05/22/2009 DAVISON DOVANESSA K 477.9 ALLERGIC RHINITIS 05/22/2009 DAVISON DO VANESSA K 844.9 Knee Sprain 05/22/2009 MADBrooke DENTAL HYGIENE INSTRUCTOR, ELIAS L 477.9 ALLERGIC RHINITIS 05/22/2009 MADBrooke DENTAL HYGIENE INSTRUCTOR, ELIAS L 844.9 Knee Sprain 05/22/2009 MADL DENTAL HYGIENE INSTRUCTOR, ELIAS L 477.9 ALLERGIC RHINITIS 05/22/2009 MADL DENTAL HYGIENE INSTRUCTOR, ELIAS L 844.9 Knee Sprain 05/22/2009 DAVISON DO, VANESSA K 477.9 ALLERGIC RHINITIS 05/22/2009 DAVISON DO, VANESSA K 844.9 Knee Sprain 05/22/2009 DAVISON DO, VANESSA K 477.9 ALLERGIC RHINITIS 05/22/2009 DAVISON DO, VANESSA K 844.9 Knee Sprain 05/22/2009 MADL DENTAL HYGIENE INSTRUCTOR, ELIAS L 477.9 ALLERGIC RHINITIS 05/22/2009 MADL DENTAL HYGIENE INSTRUCTOR, ELIAS L 844.9 Knee Sprain 05/22/2009 MADL DENTAL HYGIENE INSTRUCTOR, ELIAS L 477.9 ALLERGIC RHINITIS 05/22/2009 MADL DENTAL HYGIENE INSTRUCTOR, ELIAS L 844.9 Knee Sprain 05/22/2009 DAVISON DO, VANESSA K 477.9 ALLERGIC RHINITIS 05/22/2009 DAVISON DO, VANESSA K 844.9 Knee Sprain 05/22/2009 MADL DENTAL HYGIENE INSTRUCTOR, ELIAS L 477.9 ALLERGIC RHINITIS 05/22/2009 MADL DENTAL HYGIENE INSTRUCTOR, ELIAS L 844.9 Knee Sprain 05/22/2009 DAVISON DO, VANESSA K 477.9 ALLERGIC RHINITIS 05/22/2009 DAVISON DO, VANESSA K 844.9 Knee Sprain 05/22/2009 MADL DENTAL HYGIENE INSTRUCTOR, ELIAS L 477.9 ALLERGIC RHINITIS 05/22/2009 MADL DENTAL HYGIENE INSTRUCTOR, ELIAS L 844.9 Knee Sprain 05/22/2009 DAVISON DO, VANESSA K 477.9 ALLERGIC RHINITIS 05/22/2009 DAVISON DO, VANESSA K 844.9 Knee Sprain 05/22/2009 MADL DENTAL HYGIENE INSTRUCTOR, ELIAS L 477.9 ALLERGIC RHINITIS 05/22/2009 MADL DENTAL HYGIENE INSTRUCTOR, ELIAS L 844.9 Knee Sprain 04/17/2010 250.62 Neuropathy With Neurological Manifestations Type Ii Or Unspecified Type Uncontrolled 04/17/2010 250.62 Neuropathy With Neurological Manifestations Type Ii Or Unspecified Type Uncontrolled 04/17/2010 250.62 Neuropathy With Neurological Manifestations Type Ii Or Unspecified Type Uncontrolled 04/17/2010 250.62 Neuropathy With Neurological Manifestations Type Ii Or Unspecified Type Uncontrolled 04/17/2010 PEÑA DAVISON DOA K 250.62 Neuropathy With Neurological Manifestations Type Ii Or Unspecified Type Uncontrolled 04/17/2010 ADA PURCELL MD, CRISPIN Omer 250.62 Neuropathy With Neurological Manifestations Type Ii Or Unspecified Type Uncontrolled 04/17/2010 DAVISON PEÑA MONTALVOA K 250.62 Neuropathy With Neurological Manifestations Type Ii Or Unspecified Type Uncontrolled 04/17/2010 DAVISON PEÑA MONTALVOA K 250.62 Neuropathy With Neurological Manifestations Type Ii Or Unspecified Type Uncontrolled 04/17/2010 DAVISON DO VANESSA K 250.62 Neuropathy With Neurological Manifestations Type Ii Or Unspecified Type Uncontrolled 04/17/2010 250.62 Neuropathy With Neurological Manifestations Type Ii Or Unspecified Type Uncontrolled 04/17/2010 250.62 Neuropathy With Neurological Manifestations Type Ii Or Unspecified Type Uncontrolled 04/17/2010 250.62 Neuropathy With Neurological Manifestations Type Ii Or Unspecified Type Uncontrolled 04/17/2010 250.62 Neuropathy With Neurological Manifestations Type Ii Or Unspecified Type Uncontrolled 04/17/2010 250.62 Neuropathy With Neurological Manifestations Type Ii Or Unspecified Type Uncontrolled 04/17/2010 250.62 Neuropathy With Neurological Manifestations Type Ii Or Unspecified Type Uncontrolled 04/17/2010 250.62 Neuropathy With Neurological Manifestations Type Ii Or Unspecified Type Uncontrolled 04/17/2010 VANESSA DAVISON DO K 250.62 Neuropathy With Neurological Manifestations Type Ii Or Unspecified Type Uncontrolled 04/17/2010 OLIVER ANGELES MD 250.62 Neuropathy With Neurological Manifestations Type Ii Or Unspecified Type Uncontrolled 04/17/2010 VANESSA DAVISON DO K 250.62 Neuropathy With Neurological Manifestations Type Ii Or Unspecified Type Uncontrolled 04/17/2010 OLIVER ANGELES MD 250.62 Neuropathy With Neurological Manifestations Type Ii Or Unspecified Type Uncontrolled 04/17/2010 OLIVER ANGELES MD 250.62 Neuropathy With Neurological Manifestations Type Ii Or Unspecified Type Uncontrolled 04/17/2010 OLIVER ANGELES MD 250.62 Neuropathy With Neurological Manifestations Type Ii Or Unspecified Type Uncontrolled 04/17/2010 BONY ESPOSITO MD 250.62 Neuropathy With Neurological Manifestations Type Ii Or Unspecified Type Uncontrolled 04/17/2010 LISE WINTER APRN 250.62 Neuropathy With Neurological Manifestations Type Ii Or Unspecified Type Uncontrolled 04/17/2010 VANESSA DAVISON DO K 250.62 Neuropathy With Neurological Manifestations Type Ii Or Unspecified Type Uncontrolled 04/17/2010 MADL DENTAL HYGIENE INSTRUCTOR, ELIAS L 250.62 Neuropathy With Neurological Manifestations Type Ii Or Unspecified Type Uncontrolled 04/17/2010 MADL DENTAL HYGIENE INSTRUCTOR, ELIAS L 250.62 Neuropathy With Neurological Manifestations Type Ii Or Unspecified Type Uncontrolled 04/17/2010 DAVISON DO, VANESSA K 250.62 Neuropathy With Neurological Manifestations Type Ii Or Unspecified Type Uncontrolled 04/17/2010 DAVISON DO, VANESSA K 250.62 Neuropathy With Neurological Manifestations Type Ii Or Unspecified Type Uncontrolled 04/17/2010 MADL DENTAL HYGIENE INSTRUCTOR, ELIAS L 250.62 Neuropathy With Neurological Manifestations Type Ii Or Unspecified Type Uncontrolled 04/17/2010 MADL DENTAL HYGIENE INSTRUCTOR, ELIAS L 250.62 Neuropathy With Neurological Manifestations Type Ii Or Unspecified Type Uncontrolled 04/17/2010 DAVISON DO, VANESSA K 250.62 Neuropathy With Neurological Manifestations Type Ii Or Unspecified Type Uncontrolled 04/17/2010 MADL DENTAL HYGIENE INSTRUCTOR, ELIAS L 250.62 Neuropathy With Neurological Manifestations Type Ii Or Unspecified Type Uncontrolled 04/17/2010 DAVISON DO, VANESSA K 250.62 Neuropathy With Neurological Manifestations Type Ii Or Unspecified Type Uncontrolled 04/17/2010 MADL DENTAL HYGIENE INSTRUCTOR, ELIAS L 250.62 Neuropathy With Neurological Manifestations Type Ii Or Unspecified Type Uncontrolled 04/17/2010 DAVISON DO, VANESSA K 250.62 Neuropathy With Neurological Manifestations Type Ii Or Unspecified Type Uncontrolled 04/17/2010 MADL DENTAL HYGIENE INSTRUCTOR, ELIAS L 250.62 Neuropathy With Neurological Manifestations Type Ii Or Unspecified Type Uncontrolled 07/30/2010 465.9 UPPER RESPIRATORY INFECTION 07/30/2010 786.2 COUGH 07/30/2010 465.9 UPPER RESPIRATORY INFECTION 07/30/2010 786.2 COUGH 07/30/2010 465.9 UPPER RESPIRATORY INFECTION 07/30/2010 786.2 COUGH 07/30/2010 465.9 Upper Respiratory Infection 07/30/2010 786.2 Cough 07/30/2010 SAMAN MONTALVO VANESSA K 465.9 Upper Respiratory Infection 07/30/2010 DAVISON DO VANESSA K 786.2 Cough 07/30/2010 CRISPIN MUNSON MD 465.9 Upper Respiratory Infection 07/30/2010 CRISPIN MUNSON MD 786.2 Cough 07/30/2010 SAMAN MONTALVO VANESSA K 465.9 Upper Respiratory Infection 07/30/2010 DAVISON DO, VANESSA K 786.2 Cough 07/30/2010 DAVISON DO, VANESSA K 465.9 Upper Respiratory Infection 07/30/2010 DAVISON DO, VANESSA K 786.2 Cough 07/30/2010 DAVISON DO, VANESSA K 465.9 UPPER RESPIRATORY INFECTION 07/30/2010 DAVISON DO, VANESSA K 786.2 COUGH 07/30/2010 465.9 Upper Respiratory Infection 07/30/2010 786.2 Cough 07/30/2010 465.9 Upper Respiratory Infection 07/30/2010 786.2 Cough 07/30/2010 465.9 Upper Respiratory Infection 07/30/2010 786.2 Cough 07/30/2010 465.9 Upper Respiratory Infection 07/30/2010 786.2 Cough 07/30/2010 465.9 Upper Respiratory Infection 07/30/2010 786.2 Cough 07/30/2010 465.9 Upper Respiratory Infection 07/30/2010 786.2 Cough 07/30/2010 465.9 Upper Respiratory Infection 07/30/2010 786.2 Cough 07/30/2010 DAVISON DO, VANESSA K 465.9 Upper Respiratory Infection 07/30/2010 DAVISON DO, VANESSA K 786.2 Cough 07/30/2010 KARTHIK VILLEGAS, OLIVER M 465.9 Upper Respiratory Infection 07/30/2010 KARTHIK VILLEGAS, OLIVER Lamb 786.2 Cough 07/30/2010 DAVISON DO, VANESSA K 465.9 Upper Respiratory Infection 07/30/2010 DAVISON DO, VANESSA K 786.2 Cough 07/30/2010 KARTHIK VILLEGAS, OLIVER M 465.9 Upper Respiratory Infection 07/30/2010 KARTHIK VILLEGAS, OLIVER M 786.2 Cough 07/30/2010 OLIVER ANGELES MD M 465.9 Upper Respiratory Infection 07/30/2010 OLIVER ANGELES MD M 786.2 Cough 07/30/2010 KARTHIK VILLEGAS, OLIVER M 465.9 Upper Respiratory Infection 07/30/2010 OLIVER ANGELES MD M 786.2 Cough 07/30/2010 BONY ESPOSITO MD 465.9 Upper Respiratory Infection 07/30/2010 BONY ESPOSITO MD 786.2 Cough 07/30/2010 LISE WINTER APRN 465.9 Upper Respiratory Infection 07/30/2010 LISE WINTER APRN 786.2 Cough 07/30/2010 DAVISON DO, VANESSA K 465.9 Upper Respiratory Infection 07/30/2010 DAVISON DO, VANESSA K 786.2 Cough 07/30/2010 MADL DENTAL HYGIENE INSTRUCTOR, ELIAS L 465.9 Upper Respiratory Infection 07/30/2010 MADL DENTAL HYGIENE INSTRUCTOR, ELIAS L 786.2 Cough 07/30/2010 MADL DENTAL HYGIENE INSTRUCTOR, ELIAS L 465.9 Upper Respiratory Infection 07/30/2010 MADL DENTAL HYGIENE INSTRUCTOR, ELIAS L 786.2 Cough 07/30/2010 DAVISON DO, VANESSA K 465.9 Upper Respiratory Infection 07/30/2010 DAVISON DO, VANESSA K 786.2 Cough 07/30/2010 DAVISON DO, VANESSA K 465.9 Upper Respiratory Infection 07/30/2010 DAVISON DO, VANESSA K 786.2 Cough 07/30/2010 MADL DENTAL HYGIENE INSTRUCTOR, ELIAS L 465.9 Upper Respiratory Infection 07/30/2010 MADL DENTAL HYGIENE INSTRUCTOR, ELIAS L 786.2 Cough 07/30/2010 MADL DENTAL HYGIENE INSTRUCTOR, ELIAS L 465.9 Upper Respiratory Infection 07/30/2010 MADL DENTAL HYGIENE INSTRUCTOR, ELIAS L 786.2 Cough 07/30/2010 DAVISON DO, VANESSA K 465.9 Upper Respiratory Infection 07/30/2010 DAVISON DO, VANESSA K 786.2 Cough 07/30/2010 MADL DENTAL HYGIENE INSTRUCTOR, ELIAS L 465.9 Upper Respiratory Infection 07/30/2010 MADL DENTAL HYGIENE INSTRUCTOR, ELIAS L 786.2 Cough 07/30/2010 DAVISON DO, VANESSA K 465.9 Upper Respiratory Infection 07/30/2010 DAVISON DO, VANESSA K 786.2 Cough 07/30/2010 MADL DENTAL HYGIENE INSTRUCTOR, ELIAS L 465.9 Upper Respiratory Infection 07/30/2010 MADL DENTAL HYGIENE INSTRUCTOR, ELIAS L 786.2 Cough 07/30/2010 DAVISON DO, VANESSA K 465.9 Upper Respiratory Infection 07/30/2010 DAVISON DO, VANESSA K 786.2 Cough 07/30/2010 MADL DENTAL HYGIENE INSTRUCTOR, ELIAS L 465.9 Upper Respiratory Infection 07/30/2010 MADL DENTAL HYGIENE INSTRUCTOR, ELIAS L 786.2 Cough 10/01/2010 611.72 BREAST LUMP OR MASS 10/01/2010 V68.1 ISSUE OF REPEAT PRESCRIPTIONS 10/01/2010 611.72 BREAST LUMP OR MASS 10/01/2010 V68.1 ISSUE OF REPEAT PRESCRIPTIONS 10/01/2010 611.72 BREAST LUMP OR MASS 10/01/2010 V68.1 ISSUE OF REPEAT PRESCRIPTIONS 10/01/2010 611.72 BREAST LUMP OR MASS 10/01/2010 V68.1 ISSUE OF REPEAT PRESCRIPTIONS 10/01/2010 VANESSA DAVISON DO 611.72 BREAST LUMP OR MASS 10/01/2010 VANESSA DAVISON DO V68.1 ISSUE OF REPEAT PRESCRIPTIONS 10/01/2010 CRISPIN MUNSON MD 611.72 BREAST LUMP OR MASS 10/01/2010 CRISPIN MUNSON MD V68.1 ISSUE OF REPEAT PRESCRIPTIONS 10/01/2010 VANESSA DAVISON DO K 611.72 BREAST LUMP OR MASS 10/01/2010 VANESSA DAVISON DO V68.1 ISSUE OF REPEAT PRESCRIPTIONS 10/01/2010 VANESSA DAVISON DO K 611.72 BREAST LUMP OR MASS 10/01/2010 VANESSA DAVISON DO V68.1 ISSUE OF REPEAT PRESCRIPTIONS 10/01/2010 VANESSA DAVISON DO K 611.72 BREAST LUMP OR MASS 10/01/2010 VANESSA DAVISON DO V68.1 ISSUE OF REPEAT PRESCRIPTIONS 10/01/2010 611.72 BREAST LUMP OR MASS 10/01/2010 V68.1 ISSUE OF REPEAT PRESCRIPTIONS 10/01/2010 611.72 BREAST LUMP OR MASS 10/01/2010 V68.1 ISSUE OF REPEAT PRESCRIPTIONS 10/01/2010 611.72 BREAST LUMP OR MASS 10/01/2010 V68.1 ISSUE OF REPEAT PRESCRIPTIONS 10/01/2010 611.72 BREAST LUMP OR MASS 10/01/2010 V68.1 ISSUE OF REPEAT PRESCRIPTIONS 10/01/2010 611.72 BREAST LUMP OR MASS 10/01/2010 V68.1 ISSUE OF REPEAT PRESCRIPTIONS 10/01/2010 611.72 BREAST LUMP OR MASS 10/01/2010 V68.1 ISSUE OF REPEAT PRESCRIPTIONS 10/01/2010 611.72 BREAST LUMP OR MASS 10/01/2010 V68.1 ISSUE OF REPEAT PRESCRIPTIONS 10/01/2010 VANESSA DAVISON DO K 611.72 BREAST LUMP OR MASS 10/01/2010 VANESSA DAVISON DO V68.1 ISSUE OF REPEAT PRESCRIPTIONS 10/01/2010 OLIVER ANGELES MD 611.72 BREAST LUMP OR MASS 10/01/2010 OLIVER ANGELES MD V68.1 ISSUE OF REPEAT PRESCRIPTIONS 10/01/2010 DAVISON DO VANESSA K 611.72 BREAST LUMP OR MASS 10/01/2010 DAVISON DO VANESSA K V68.1 ISSUE OF REPEAT PRESCRIPTIONS 10/01/2010 OLIVER ANGELES MD 611.72 BREAST LUMP OR MASS 10/01/2010 OLIVER ANGELES MD V68.1 ISSUE OF REPEAT PRESCRIPTIONS 10/01/2010 OLIVER ANGELES MD 611.72 BREAST LUMP OR MASS 10/01/2010 OLIVER ANGELES MD V68.1 ISSUE OF REPEAT PRESCRIPTIONS 10/01/2010 OLIVER ANGELES MD 611.72 BREAST LUMP OR MASS 10/01/2010 OLIVER ANGELES MD V68.1 ISSUE OF REPEAT PRESCRIPTIONS 10/01/2010 BONY ESPOSITO MD 611.72 BREAST LUMP OR MASS 10/01/2010 BONY ESPOSITO MD V68.1 ISSUE OF REPEAT PRESCRIPTIONS 10/01/2010 LISE WINTER APRN 611.72 BREAST LUMP OR MASS 10/01/2010 LISE WINTER APRN V68.1 ISSUE OF REPEAT PRESCRIPTIONS 10/01/2010 DAVISON DO VANESSA K 611.72 BREAST LUMP OR MASS 10/01/2010 DAVISON DO VANESSA K V68.1 ISSUE OF REPEAT PRESCRIPTIONS 10/01/2010 MADL DENTAL HYGIENE INSTRUCTOR, ELIAS L 611.72 BREAST LUMP OR MASS 10/01/2010 MADL DENTAL HYGIENE INSTRUCTOR, ELIAS L V68.1 ISSUE OF REPEAT PRESCRIPTIONS 10/01/2010 MADL DENTAL HYGIENE INSTRUCTOR, ELIAS L 611.72 BREAST LUMP OR MASS 10/01/2010 MADL DENTAL HYGIENE INSTRUCTOR, ELIAS L V68.1 ISSUE OF REPEAT PRESCRIPTIONS 10/01/2010 DAVISON DO, VANESSA K 611.72 BREAST LUMP OR MASS 10/01/2010 DAVISON DO, VANESSA K V68.1 ISSUE OF REPEAT PRESCRIPTIONS 10/01/2010 DAVISON DO, VANESSA K 611.72 BREAST LUMP OR MASS 10/01/2010 DAVISON DO VANESSA K V68.1 ISSUE OF REPEAT PRESCRIPTIONS 10/01/2010 MADL DENTAL HYGIENE INSTRUCTORNATHALY KingA L 611.72 BREAST LUMP OR MASS 10/01/2010 MADL DENTAL HYGIENE INSTRUCTORNATHALY KingA L V68.1 ISSUE OF REPEAT PRESCRIPTIONS 10/01/2010 MADL DENTAL HYGIENE INSTRUCTORNATHALYA L 611.72 BREAST LUMP OR MASS 10/01/2010 MADL DENTAL HYGIENE INSTRUCTORNADER KingNYA L V68.1 ISSUE OF REPEAT PRESCRIPTIONS 10/01/2010 DAVISON DO VANESSA K 611.72 BREAST LUMP OR MASS 10/01/2010 DAVISON DO VANESSA K V68.1 ISSUE OF REPEAT PRESCRIPTIONS 10/01/2010 MADL DENTAL HYGIENE INSTRUCTORNADER KingNYA L 611.72 BREAST LUMP OR MASS 10/01/2010 MADL DENTAL HYGIENE INSTRUCTORNADER KingNYA L V68.1 ISSUE OF REPEAT PRESCRIPTIONS 10/01/2010 DAVISON DO, VANESSA K 611.72 BREAST LUMP OR MASS 10/01/2010 SAMAN DO VANESSA K V68.1 ISSUE OF REPEAT PRESCRIPTIONS 10/01/2010 MADL DENTAL HYGIENE INSTRUCTORNATHALY KingA L 611.72 BREAST LUMP OR MASS 10/01/2010 HANANEL NADER CUEVASNYA L V68.1 ISSUE OF REPEAT PRESCRIPTIONS 10/01/2010 DAVISON DO VANESSA K 611.72 BREAST LUMP OR MASS 10/01/2010 DAVISON DO VANESSA K V68.1 ISSUE OF REPEAT PRESCRIPTIONS 10/01/2010 MADL NATHALY CUEVASA L 611.72 BREAST LUMP OR MASS 10/01/2010 HANANEL NADER CUEVASNYA L V68.1 ISSUE OF REPEAT PRESCRIPTIONS 11/03/2010 Ot 174.9 11/03/2010 Ot 250.00 11/03/2010 Ot V58.67 11/23/2010 Ot 174.9 11/23/2010 Ot 250.00 11/23/2010 Ot V58.67 02/22/2011 Ot 174.9 02/22/2011 Ot 250.00 02/22/2011 Ot 272.4 02/22/2011 Ot 305.1 02/22/2011 Ot 401.9 02/22/2011 Ot 716.90 02/22/2011 Ot V10.41 02/22/2011 Ot V45.77 02/22/2011 Ot V58.11 02/22/2011 Ot V58.67 02/22/2011 Ot V58.69 02/22/2011 Ot V86.0 03/30/2011 356.9 UNSPECIFIED IDIOPATHIC PERIPHERAL NEUROPATHY 03/30/2011 356.9 UNSPECIFIED IDIOPATHIC PERIPHERAL NEUROPATHY 03/30/2011 356.9 UNSPECIFIED IDIOPATHIC PERIPHERAL NEUROPATHY 03/30/2011 356.9 UNSPECIFIED IDIOPATHIC PERIPHERAL NEUROPATHY 03/30/2011 DAVISON DO VANESSA K 356.9 UNSPECIFIED IDIOPATHIC PERIPHERAL NEUROPATHY 03/30/2011 ADA PURCELL MD, CRISPIN Omer 356.9 UNSPECIFIED IDIOPATHIC PERIPHERAL NEUROPATHY 03/30/2011 DAVISON DO, VANESSA K 356.9 UNSPECIFIED IDIOPATHIC PERIPHERAL NEUROPATHY 03/30/2011 DAVISON DO, VANESSA K 356.9 UNSPECIFIED IDIOPATHIC PERIPHERAL NEUROPATHY 03/30/2011 DAVISON DO, VANESSA K 356.9 UNSPECIFIED IDIOPATHIC PERIPHERAL NEUROPATHY 03/30/2011 356.9 UNSPECIFIED IDIOPATHIC PERIPHERAL NEUROPATHY 03/30/2011 356.9 UNSPECIFIED IDIOPATHIC PERIPHERAL NEUROPATHY 03/30/2011 356.9 UNSPECIFIED IDIOPATHIC PERIPHERAL NEUROPATHY 03/30/2011 356.9 UNSPECIFIED IDIOPATHIC PERIPHERAL NEUROPATHY 03/30/2011 356.9 UNSPECIFIED IDIOPATHIC PERIPHERAL NEUROPATHY 03/30/2011 356.9 UNSPECIFIED IDIOPATHIC PERIPHERAL NEUROPATHY 03/30/2011 356.9 UNSPECIFIED IDIOPATHIC PERIPHERAL NEUROPATHY 03/30/2011 DAVISON DO VANESSA K 356.9 UNSPECIFIED IDIOPATHIC PERIPHERAL NEUROPATHY 03/30/2011 OLIVER ANGELES MD 356.9 UNSPECIFIED IDIOPATHIC PERIPHERAL NEUROPATHY 03/30/2011 DAVISON DO VANESSA K 356.9 UNSPECIFIED IDIOPATHIC PERIPHERAL NEUROPATHY 03/30/2011 OLIVER ANGELES MD 356.9 UNSPECIFIED IDIOPATHIC PERIPHERAL NEUROPATHY 03/30/2011 OLIVER ANGELES MD 356.9 UNSPECIFIED IDIOPATHIC PERIPHERAL NEUROPATHY 03/30/2011 OLIVER ANGELES MD 356.9 UNSPECIFIED IDIOPATHIC PERIPHERAL NEUROPATHY 03/30/2011 BONY ESPOSITO MD 356.9 UNSPECIFIED IDIOPATHIC PERIPHERAL NEUROPATHY 03/30/2011 LISE WINTER APRN 356.9 UNSPECIFIED IDIOPATHIC PERIPHERAL NEUROPATHY 03/30/2011 DAVISON DO VANESSA K 356.9 UNSPECIFIED IDIOPATHIC PERIPHERAL NEUROPATHY 03/30/2011 ELIAS BLAKE APRN 356.9 UNSPECIFIED IDIOPATHIC PERIPHERAL NEUROPATHY 03/30/2011 ELIAS BLAKE APRN 356.9 UNSPECIFIED IDIOPATHIC PERIPHERAL NEUROPATHY 03/30/2011 DAVISON DO VANESSA K 356.9 UNSPECIFIED IDIOPATHIC PERIPHERAL NEUROPATHY 03/30/2011 DAVISON DO, VANESSA K 356.9 UNSPECIFIED IDIOPATHIC PERIPHERAL NEUROPATHY 03/30/2011 MADL DENTAL HYGIENE INSTRUCTOR, ELIAS L 356.9 UNSPECIFIED IDIOPATHIC PERIPHERAL NEUROPATHY 03/30/2011 MADL DENTAL HYGIENE INSTRUCTOR, ELIAS L 356.9 UNSPECIFIED IDIOPATHIC PERIPHERAL NEUROPATHY 03/30/2011 DAVISON DO, VANESSA K 356.9 UNSPECIFIED IDIOPATHIC PERIPHERAL NEUROPATHY 03/30/2011 MADL DENTAL HYGIENE INSTRUCTOR, ELIAS L 356.9 UNSPECIFIED IDIOPATHIC PERIPHERAL NEUROPATHY 03/30/2011 DAVISON DO, VANESSA K 356.9 UNSPECIFIED IDIOPATHIC PERIPHERAL NEUROPATHY 03/30/2011 MADL DENTAL HYGIENE INSTRUCTOR, ELIAS L 356.9 UNSPECIFIED IDIOPATHIC PERIPHERAL NEUROPATHY 03/30/2011 DAVISON DO, VANESSA K 356.9 UNSPECIFIED IDIOPATHIC PERIPHERAL NEUROPATHY 03/30/2011 MADL DENTAL HYGIENE INSTRUCTOR, ELIAS L 356.9 UNSPECIFIED IDIOPATHIC PERIPHERAL NEUROPATHY 05/24/2011 Ot 174.4 MAL LIV BREAST UP-OUTER 05/24/2011 Ot 250.00 DIAB MASOOD WO COMPL, TYPE II OR UNSPEC TY 05/24/2011 Ot 272.4 HYPERLIPIDEMIA NEC/NOS 05/24/2011 Ot 305.1 TOBACCO USE DISORDER 05/24/2011 Ot 401.9 HYPERTENSION NOS 05/24/2011 Ot 716.90 ARTHROPATHY NOS-UNSPEC 05/24/2011 Ot V10.41 HX-CERVICAL MALIGNANCY 05/24/2011 Ot V45.77 ACQRD ABSENCE OF GENITAL ORGANS 05/24/2011 Ot V58.0 ENCOUNTER FOR RADIOTHERAPY 05/24/2011 Ot V58.67 LONG-TERM ( CURRENT) USE OF INSULIN 05/24/2011 Ot V58.69 OTH MED,LT, CURRENT USE 05/24/2011 Ot V86.0 ESTROGEN RECEPTOR POSITIVE STATUS [ER+] 05/24/2011 Ot V87.41 PERSONAL HISTORY OF ANTINEOPLASTIC CHEMO 07/15/2011 174.9 MALIGNANT NEOPLASM OF BREAST (FEMALE) UNSPECIFIED SITE 07/15/2011 305.1 NONDEPENDENT TOBACCO USE DISORDER 07/15/2011 V03.82 PPV23 ( PNEUMOVAX) DX 07/15/2011 V04.81 FLU DX (3 YRS AND ABOVE, IM) 07/15/2011 174.9 MALIGNANT NEOPLASM OF BREAST (FEMALE) UNSPECIFIED SITE 07/15/2011 305.1 NONDEPENDENT TOBACCO USE DISORDER 07/15/2011 V03.82 PPV23 ( PNEUMOVAX) DX 07/15/2011 V04.81 FLU DX (3 YRS AND ABOVE, IM) 07/15/2011 174.9 MALIGNANT NEOPLASM OF BREAST (FEMALE) UNSPECIFIED SITE 07/15/2011 305.1 NONDEPENDENT TOBACCO USE DISORDER 07/15/2011 V03.82 PPV23 ( PNEUMOVAX) DX 07/15/2011 V04.81 FLU DX (3 YRS AND ABOVE, IM) 07/15/2011 174.9 MALIGNANT NEOPLASM OF BREAST (FEMALE) UNSPECIFIED SITE 07/15/2011 305.1 NONDEPENDENT TOBACCO USE DISORDER 07/15/2011 V03.82 Ppv23 ( pneumovax) Dx 07/15/2011 V04.81 Flu Dx (3 Yrs And Above, Im) 07/15/2011 PEÑA DAVISON DOA K 174.9 MALIGNANT NEOPLASM OF BREAST (FEMALE) UNSPECIFIED SITE 07/15/2011 SAMAN MONTALVO VANESSA K 305.1 NONDEPENDENT TOBACCO USE DISORDER 07/15/2011 SAMAN MONTALVO VANESSA K V03.82 Ppv23 (pneumovax) Dx 07/15/2011 SAMAN MONTALVO VANESSA K V04.81 Flu Dx (3 Yrs And Above, Im) 07/15/2011 [facility] 174.9 MALIGNANT NEOPLASM OF BREAST (FEMALE) UNSPECIFIED SITE 07/15/2011 [facility] 305.1 NONDEPENDENT TOBACCO USE DISORDER 07/15/2011 [facility] V03.82 Ppv23 (pneumovax) Dx 07/15/2011 [facility] V04.81 Flu Dx (3 Yrs And Above, Im) 07/15/2011 SAMAN MONTALVO VANESSA K 174.9 MALIGNANT NEOPLASM OF BREAST (FEMALE) UNSPECIFIED SITE 07/15/2011 SAMAN MONTALVO VANESSA K 305.1 NONDEPENDENT TOBACCO USE DISORDER 07/15/2011 SAMAN MONTALVO VANESSA K V03.82 Ppv23 (pneumovax) Dx 07/15/2011 DAVISON DO VANESSA K V04.81 Flu Dx (3 Yrs And Above, Im) 07/15/2011 DAVISON DO VANESSA K 174.9 MALIGNANT NEOPLASM OF BREAST (FEMALE) UNSPECIFIED SITE 07/15/2011 SAMAN MONTALVO VANESSA K 305.1 NONDEPENDENT TOBACCO USE DISORDER 07/15/2011 VANESSA DAVISON DO V03.82 Ppv23 (pneumovax) Dx 07/15/2011 VANESSA DAVISON DO V04.81 Flu Dx (3 Yrs And Above, Im) 07/15/2011 VANESSA DAVISON DO 174.9 MALIGNANT NEOPLASM OF BREAST (FEMALE) UNSPECIFIED SITE 07/15/2011 VANESSA DAVISON DO 305.1 NONDEPENDENT TOBACCO USE DISORDER 07/15/2011 VANESSA DAVISON DO V03.82 PPV23 (PNEUMOVAX) DX 07/15/2011 VANESSA DAVISON DO V04.81 FLU DX (3 YRS AND ABOVE, IM) 07/15/2011 174.9 MALIGNANT NEOPLASM OF BREAST (FEMALE) UNSPECIFIED SITE 07/15/2011 305.1 NONDEPENDENT TOBACCO USE DISORDER 07/15/2011 V03.82 Ppv23 ( pneumovax) Dx 07/15/2011 V04.81 Flu Dx (3 Yrs And Above, Im) 07/15/2011 174.9 MALIGNANT NEOPLASM OF BREAST (FEMALE) UNSPECIFIED SITE 07/15/2011 305.1 NONDEPENDENT TOBACCO USE DISORDER 07/15/2011 V03.82 Ppv23 ( pneumovax) Dx 07/15/2011 V04.81 Flu Dx (3 Yrs And Above, Im) 07/15/2011 174.9 MALIGNANT NEOPLASM OF BREAST (FEMALE) UNSPECIFIED SITE 07/15/2011 305.1 NONDEPENDENT TOBACCO USE DISORDER 07/15/2011 V03.82 Ppv23 ( pneumovax) Dx 07/15/2011 V04.81 Flu Dx (3 Yrs And Above, Im) 07/15/2011 174.9 MALIGNANT NEOPLASM OF BREAST (FEMALE) UNSPECIFIED SITE 07/15/2011 305.1 NONDEPENDENT TOBACCO USE DISORDER 07/15/2011 V03.82 Ppv23 ( pneumovax) Dx 07/15/2011 V04.81 Flu Dx (3 Yrs And Above, Im) 07/15/2011 174.9 MALIGNANT NEOPLASM OF BREAST (FEMALE) UNSPECIFIED SITE 07/15/2011 305.1 NONDEPENDENT TOBACCO USE DISORDER 07/15/2011 V03.82 Ppv23 ( pneumovax) Dx 07/15/2011 V04.81 Flu Dx (3 Yrs And Above, Im) 07/15/2011 174.9 MALIGNANT NEOPLASM OF BREAST (FEMALE) UNSPECIFIED SITE 07/15/2011 305.1 NONDEPENDENT TOBACCO USE DISORDER 07/15/2011 V03.82 Ppv23 ( pneumovax) Dx 07/15/2011 V04.81 Flu Dx (3 Yrs And Above, Im) 07/15/2011 174.9 MALIGNANT NEOPLASM OF BREAST (FEMALE) UNSPECIFIED SITE 07/15/2011 305.1 NONDEPENDENT TOBACCO USE DISORDER 07/15/2011 V03.82 Ppv23 ( pneumovax) Dx 07/15/2011 V04.81 Flu Dx (3 Yrs And Above, Im) 07/15/2011 VANESSA DAVISON DO K 174.9 MALIGNANT NEOPLASM OF BREAST (FEMALE) UNSPECIFIED SITE 07/15/2011 VANESSA DAVISON DO K 305.1 NONDEPENDENT TOBACCO USE DISORDER 07/15/2011 VANESSA DAVISON DO K V03.82 Ppv23 (pneumovax) Dx 07/15/2011 PEÑA DAVISON DOA K V04.81 Flu Dx (3 Yrs And Above, Im) 07/15/2011 OLIVER ANGELES MD 174.9 MALIGNANT NEOPLASM OF BREAST (FEMALE) UNSPECIFIED SITE 07/15/2011 OLIVER ANGELES MD 305.1 NONDEPENDENT TOBACCO USE DISORDER 07/15/2011 OLIVER ANGELES MD V03.82 Ppv23 (pneumovax) Dx 07/15/2011 OLIVER ANGELES MD V04.81 Flu Dx (3 Yrs And Above, Im) 07/15/2011 VANESSA DAVISON DO 174.9 MALIGNANT NEOPLASM OF BREAST (FEMALE) UNSPECIFIED SITE 07/15/2011 VANESSA DAVISON DO 305.1 NONDEPENDENT TOBACCO USE DISORDER 07/15/2011 VANESSA DAVISON DO V03.82 Ppv23 (pneumovax) Dx 07/15/2011 VANESSA DAVISON DO K V04.81 Flu Dx (3 Yrs And Above, Im) 07/15/2011 OLIVER ANGELES MD 174.9 MALIGNANT NEOPLASM OF BREAST (FEMALE) UNSPECIFIED SITE 07/15/2011 OLIVER ANGELES MD 305.1 NONDEPENDENT TOBACCO USE DISORDER 07/15/2011 OLIVER ANGELES MD V03.82 Ppv23 (pneumovax) Dx 07/15/2011 OLIVER ANGELES MD V04.81 Flu Dx (3 Yrs And Above, Im) 07/15/2011 OLIVER ANGELES MD 174.9 MALIGNANT NEOPLASM OF BREAST (FEMALE) UNSPECIFIED SITE 07/15/2011 OLIVER ANGELES MD 305.1 NONDEPENDENT TOBACCO USE DISORDER 07/15/2011 OLIVER ANGELES MD V03.82 Ppv23 (pneumovax) Dx 07/15/2011 OLIVER ANGELES MD V04.81 Flu Dx (3 Yrs And Above, Im) 07/15/2011 OLIVER ANGELES MD 174.9 MALIGNANT NEOPLASM OF BREAST (FEMALE) UNSPECIFIED SITE 07/15/2011 OLIVER ANGELES MD 305.1 NONDEPENDENT TOBACCO USE DISORDER 07/15/2011 OLIVER ANGELES MD V03.82 Ppv23 (pneumovax) Dx 07/15/2011 OLIVER ANGELES MD V04.81 Flu Dx (3 Yrs And Above, Im) 07/15/2011 BONY ESPOSITO MD 174.9 MALIGNANT NEOPLASM OF BREAST (FEMALE) UNSPECIFIED SITE 07/15/2011 BONY ESPOSITO MD 305.1 NONDEPENDENT TOBACCO USE DISORDER 07/15/2011 BONY ESPOSITO MD V03.82 Ppv23 (pneumovax) Dx 07/15/2011 BONY ESPOSITO MD V04.81 Flu Dx (3 Yrs And Above, Im) 07/15/2011 LISE WINTER APRN 174.9 MALIGNANT NEOPLASM OF BREAST (FEMALE) UNSPECIFIED SITE 07/15/2011 LISE WINTER APRN 305.1 NONDEPENDENT TOBACCO USE DISORDER 07/15/2011 LISE WINTER APRN V03.82 Ppv23 (pneumovax) Dx 07/15/2011 LISE WINTER APRN V04.81 Flu Dx (3 Yrs And Above, Im) 07/15/2011 PEÑA DAVISON DOA K 174.9 MALIGNANT NEOPLASM OF BREAST (FEMALE) UNSPECIFIED SITE 07/15/2011 SAMAN DO VANESSA K 305.1 NONDEPENDENT TOBACCO USE DISORDER 07/15/2011 DAVISON DO VANESSA K V03.82 Ppv23 (pneumovax) Dx 07/15/2011 DAVISON DO VANESSA K V04.81 Flu Dx (3 Yrs And Above, Im) 07/15/2011 ELIAS BLAKE APRN 174.9 MALIGNANT NEOPLASM OF BREAST (FEMALE) UNSPECIFIED SITE 07/15/2011 MADL DENTAL HYGIENE INSTRUCTOR, ELIAS L 305.1 NONDEPENDENT TOBACCO USE DISORDER 07/15/2011 MADL DENTAL HYGIENE INSTRUCTOR, ELIAS L V03.82 Ppv23 (pneumovax) Dx 07/15/2011 MADL DENTAL HYGIENE INSTRUCTOR, ELIAS L V04.81 Flu Dx (3 Yrs And Above, Im) 07/15/2011 MADL DENTAL HYGIENE INSTRUCTOR, ELIAS L 174.9 MALIGNANT NEOPLASM OF BREAST (FEMALE) UNSPECIFIED SITE 07/15/2011 MADL DENTAL HYGIENE INSTRUCTOR, ELIAS L 305.1 NONDEPENDENT TOBACCO USE DISORDER 07/15/2011 MADL DENTAL HYGIENE INSTRUCTOR, ELIAS L V03.82 Ppv23 (pneumovax) Dx 07/15/2011 MADL DENTAL HYGIENE INSTRUCTOR, ELIAS L V04.81 Flu Dx (3 Yrs And Above, Im) 07/15/2011 DAVISON DO, VANESSA K 174.9 MALIGNANT NEOPLASM OF BREAST (FEMALE) UNSPECIFIED SITE 07/15/2011 SAMAN DO VANESSA K 305.1 NONDEPENDENT TOBACCO USE DISORDER 07/15/2011 DAVISON DO, VANESSA K V03.82 Ppv23 (pneumovax) Dx 07/15/2011 DAVISON DO, VANESSA K V04.81 Flu Dx (3 Yrs And Above, Im) 07/15/2011 DAVISON DO, VANESSA K 174.9 MALIGNANT NEOPLASM OF BREAST (FEMALE) UNSPECIFIED SITE 07/15/2011 DAVISON DO, VANESSA K 305.1 NONDEPENDENT TOBACCO USE DISORDER 07/15/2011 DAVISON DO, VANESSA K V03.82 Ppv23 (pneumovax) Dx 07/15/2011 DAVISON DO, VANESSA K V04.81 Flu Dx (3 Yrs And Above, Im) 07/15/2011 MADL DENTAL HYGIENE INSTRUCTOR, ELIAS L 174.9 MALIGNANT NEOPLASM OF BREAST (FEMALE) UNSPECIFIED SITE 07/15/2011 MADL DENTAL HYGIENE INSTRUCTOR, ELIAS L 305.1 NONDEPENDENT TOBACCO USE DISORDER 07/15/2011 MADL DENTAL HYGIENE INSTRUCTOR, ELIAS L V03.82 Ppv23 (pneumovax) Dx 07/15/2011 MADL DENTAL HYGIENE INSTRUCTOR, ELIAS L V04.81 Flu Dx (3 Yrs And Above, Im) 07/15/2011 MADL DENTAL HYGIENE INSTRUCTOR, ELIAS L 174.9 MALIGNANT NEOPLASM OF BREAST (FEMALE) UNSPECIFIED SITE 07/15/2011 MADL DENTAL HYGIENE INSTRUCTOR, ELIAS L 305.1 NONDEPENDENT TOBACCO USE DISORDER 07/15/2011 MADL DENTAL HYGIENE INSTRUCTOR, ELIAS L V03.82 Ppv23 (pneumovax) Dx 07/15/2011 MADL DENTAL HYGIENE INSTRUCTOR, ELIAS L V04.81 Flu Dx (3 Yrs And Above, Im) 07/15/2011 DAVISON DO VANESSA K 174.9 MALIGNANT NEOPLASM OF BREAST (FEMALE) UNSPECIFIED SITE 07/15/2011 DAVISON DO VANESSA K 305.1 NONDEPENDENT TOBACCO USE DISORDER 07/15/2011 DAVISON DO VANESSA K V03.82 Ppv23 (pneumovax) Dx 07/15/2011 DAVISON DO, VANESSA K V04.81 Flu Dx (3 Yrs And Above, Im) 07/15/2011 MADL DENTAL HYGIENE INSTRUCTOR, ELIAS L 174.9 MALIGNANT NEOPLASM OF BREAST (FEMALE) UNSPECIFIED SITE 07/15/2011 MADL DENTAL HYGIENE INSTRUCTOR, ELIAS L 305.1 NONDEPENDENT TOBACCO USE DISORDER 07/15/2011 MADL DENTAL HYGIENE INSTRUCTOR, ELIAS L V03.82 Ppv23 (pneumovax) Dx 07/15/2011 MADL DENTAL HYGIENE INSTRUCTOR, ELIAS L V04.81 Flu Dx (3 Yrs And Above, Im) 07/15/2011 DAVISON DO VANESSA K 174.9 MALIGNANT NEOPLASM OF BREAST (FEMALE) UNSPECIFIED SITE 07/15/2011 DAVISON DO VANESSA K 305.1 NONDEPENDENT TOBACCO USE DISORDER 07/15/2011 DAVISON DO VANESSA K V03.82 Ppv23 (pneumovax) Dx 07/15/2011 DAVISON DO VANESSA K V04.81 Flu Dx (3 Yrs And Above, Im) 07/15/2011 MADL DENTAL HYGIENE INSTRUCTOR, ELIAS L 174.9 MALIGNANT NEOPLASM OF BREAST (FEMALE) UNSPECIFIED SITE 07/15/2011 MADL DENTAL HYGIENE INSTRUCTOR, ELIAS L 305.1 NONDEPENDENT TOBACCO USE DISORDER 07/15/2011 MADL DENTAL HYGIENE INSTRUCTOR, ELIAS L V03.82 Ppv23 (pneumovax) Dx 07/15/2011 MADL DENTAL HYGIENE INSTRUCTOR, ELIAS L V04.81 Flu Dx (3 Yrs And Above, Im) 07/15/2011 DAVISON DO, VANESSA K 174.9 MALIGNANT NEOPLASM OF BREAST (FEMALE) UNSPECIFIED SITE 07/15/2011 SAMAN MONTALVO VANESSA K 305.1 NONDEPENDENT TOBACCO USE DISORDER 07/15/2011 SAMAN MONTALVO VANESSA K V03.82 Ppv23 (pneumovax) Dx 07/15/2011 SAMAN MONTALVO VANESSA K V04.81 Flu Dx (3 Yrs And Above, Im) 07/15/2011 HANANEL ELIAS CUEVAS L 174.9 MALIGNANT NEOPLASM OF BREAST (FEMALE) UNSPECIFIED SITE 07/15/2011 MADL DENTAL HYGIENE INSTRUCTOR, ELIAS L 305.1 NONDEPENDENT TOBACCO USE DISORDER 07/15/2011 MADL DENTAL HYGIENE INSTRUCTOR, ELIAS L V03.82 Ppv23 (pneumovax) Dx 07/15/2011 HANANEL FAITH, ELIAS L V04.81 Flu Dx (3 Yrs And Above, Im) 09/05/2011 Ot 174.4 MAL LIV BREAST UP-OUTER 09/05/2011 Ot 250.00 DIAB MASOOD WO COMPL, TYPE II OR UNSPEC TY 09/05/2011 Ot 272.4 HYPERLIPIDEMIA NEC/NOS 09/05/2011 Ot 305.1 TOBACCO USE DISORDER 09/05/2011 Ot 401.9 HYPERTENSION NOS 09/05/2011 Ot 716.90 ARTHROPATHY NOS-UNSPEC 09/05/2011 Ot V10.41 HX-CERVICAL MALIGNANCY 09/05/2011 Ot V45.77 ACQRD ABSENCE OF GENITAL ORGANS 09/05/2011 Ot V58.67 LONG-TERM ( CURRENT) USE OF INSULIN 09/05/2011 Ot V58.69 OTH MED,LT, CURRENT USE 09/05/2011 Ot V86.0 ESTROGEN RECEPTOR POSITIVE 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+] 09/05/2011 Ot V87.41 PERSONAL HISTORY OF ANTINEOPLASTIC CHEMO 10/13/2011 250.00 DIABETES MELLITUS TYPE 2 10/13/2011 250.00 DIABETES MELLITUS TYPE 2 10/13/2011 250.00 DIABETES MELLITUS TYPE 2 10/13/2011 250.00 DIABETES MELLITUS TYPE 2 10/13/2011 VANESSA DAVISON DO 250.00 DIABETES MELLITUS TYPE 2 10/13/2011 ADA PURCELL MD, CRISPIN Omer 250.00 DIABETES MELLITUS TYPE 2 10/13/2011 VANESSA DAVISON DO 250.00 DIABETES MELLITUS TYPE 2 10/13/2011 VANESSA DAVISON DO 250.00 DIABETES MELLITUS TYPE 2 10/13/2011 SAMAN MONTALVO VANESSA K 250.00 DIABETES MELLITUS TYPE 2 10/13/2011 250.00 DIABETES MELLITUS TYPE 2 10/13/2011 250.00 DIABETES MELLITUS TYPE 2 10/13/2011 250.00 DIABETES MELLITUS TYPE 2 10/13/2011 250.00 DIABETES MELLITUS TYPE 2 10/13/2011 250.00 DIABETES MELLITUS TYPE 2 10/13/2011 250.00 DIABETES MELLITUS TYPE 2 10/13/2011 250.00 DIABETES MELLITUS TYPE 2 10/13/2011 DAVISON DO VANESSA K 250.00 DIABETES MELLITUS TYPE 2 10/13/2011 KARTHIK VILLEGAS, OLIVER Lamb 250.00 DIABETES MELLITUS TYPE 2 - UNCOMPLICATED, CONTROLLED 10/13/2011 DAVISON DO VANESSA K 250.00 DIABETES MELLITUS TYPE 2 - UNCOMPLICATED, CONTROLLED 10/13/2011 KARTHIK VILLEGAS, OLIVER Lamb 250.00 DIABETES MELLITUS TYPE 2 - UNCOMPLICATED, CONTROLLED 10/13/2011 KARTHIK VILLEGAS, OLIVER Lamb 250.00 DIABETES MELLITUS TYPE 2 - UNCOMPLICATED, CONTROLLED 10/13/2011 KARTHIK VILLEGAS, OLIVER Lamb 250.00 DIABETES MELLITUS TYPE 2 - UNCOMPLICATED, CONTROLLED 10/13/2011 BONY ESPOSITO MD 250.00 DIABETES MELLITUS TYPE 2 - UNCOMPLICATED, CONTROLLED 10/13/2011 LISE WINTER APRN 250.00 DIABETES MELLITUS TYPE 2 - UNCOMPLICATED, CONTROLLED 10/13/2011 DAVISON DO VANESSA K 250.00 DIABETES MELLITUS TYPE 2 - UNCOMPLICATED, CONTROLLED 10/13/2011 LOU DENTAL HYGIENE INSTRUCTOR, ELIAS L 250.00 DIABETES MELLITUS TYPE 2 - UNCOMPLICATED, CONTROLLED 10/13/2011 LOU MURCIAN, ELIAS L 250.00 DIABETES MELLITUS TYPE 2 - UNCOMPLICATED, CONTROLLED 10/13/2011 DAVISON DO VANESSA K 250.00 DIABETES MELLITUS TYPE 2 - UNCOMPLICATED, CONTROLLED 10/13/2011 DAVISON DO VANESSA K 250.00 DIABETES MELLITUS TYPE 2 - UNCOMPLICATED, CONTROLLED 10/13/2011 MADL DENTAL HYGIENE INSTRUCTOR, ELIAS L 250.00 DIABETES MELLITUS TYPE 2 - UNCOMPLICATED, CONTROLLED 10/13/2011 LOU DENTAL HYGIENE INSTRUCTOR, ELIAS L 250.00 DIABETES MELLITUS TYPE 2 - UNCOMPLICATED, CONTROLLED 10/13/2011 DAVISON DO VANESSA K 250.00 DIABETES MELLITUS TYPE 2 - UNCOMPLICATED, CONTROLLED 10/13/2011 MADBrooke DENTAL HYGIENE INSTRUCTOR, ELIAS L 250.00 DIABETES MELLITUS TYPE 2 - UNCOMPLICATED, CONTROLLED 10/13/2011 VANESSA DAVISON DO 250.00 DIABETES MELLITUS TYPE 2 - UNCOMPLICATED, CONTROLLED 10/13/2011 NATHALY BLAKE APRNA Brooke 250.00 DIABETES MELLITUS TYPE 2 - UNCOMPLICATED, CONTROLLED 10/13/2011 VANESSA DAVISON DO 250.00 DIABETES MELLITUS TYPE 2 - UNCOMPLICATED, CONTROLLED 10/13/2011 ELIAS BLAKE APRN 250.00 DIABETES MELLITUS TYPE 2 - UNCOMPLICATED, CONTROLLED 12/26/2011 Ot 174.4 MAL LIV BREAST UP-OUTER 12/26/2011 Ot V58.81 FIT/ADJ VASCULAR CATHETER 05/07/2012 Ot 174.4 MAL LIV BREAST UP-OUTER 05/07/2012 Ot V58.81 FIT/ADJ VASCULAR CATHETER 05/29/2012 V58.69 MEDICATION HIGH RISK 05/29/2012 V58.69 MEDICATION HIGH RISK 05/29/2012 V58.69 MEDICATION HIGH RISK 05/29/2012 V58.69 MEDICATION HIGH RISK 05/29/2012 VANESSA DAVISON DO V58.69 MEDICATION HIGH RISK 05/29/2012 ADA PURCELL MD, CRISPIN Omer V58.69 MEDICATION HIGH RISK 05/29/2012 VANESSA DAVISON DO V58.69 MEDICATION HIGH RISK 05/29/2012 VANESSA DAVISON DO V58.69 MEDICATION HIGH RISK 05/29/2012 VANESSA DAVISON DO V58.69 MEDICATION HIGH RISK 05/29/2012 V58.69 MEDICATION HIGH RISK 05/29/2012 V58.69 MEDICATION HIGH RISK 05/29/2012 V58.69 MEDICATION HIGH RISK 05/29/2012 V58.69 MEDICATION HIGH RISK 05/29/2012 V58.69 MEDICATION HIGH RISK 05/29/2012 V58.69 MEDICATION HIGH RISK 05/29/2012 V58.69 MEDICATION HIGH RISK 05/29/2012 VANESSA DAVISON DO V58.69 MEDICATION HIGH RISK 05/29/2012 KARTHIK VILLEGAS, OLIVER Lamb V58.69 MEDICATION HIGH RISK 05/29/2012 VANESSA DAVISON DO V58.69 MEDICATION HIGH RISK 05/29/2012 KARTHIK VILLEGAS, OLIVER Lamb V58.69 MEDICATION HIGH RISK 05/29/2012 KARTHIK VILLEGAS, OLIVER Lamb V58.69 MEDICATION HIGH RISK 05/29/2012 KARTHIK VILLEGAS, OLIVER Lamb V58.69 MEDICATION HIGH RISK 05/29/2012 CATE VILLEGAS, BONY V58.69 MEDICATION HIGH RISK 05/29/2012 MOY CUEVASLISE V58.69 MEDICATION HIGH RISK 05/29/2012 DAVISON DO VANESSA K V58.69 MEDICATION HIGH RISK 05/29/2012 MADL DENTAL HYGIENE INSTRUCTOR, ELIAS L V58.69 MEDICATION HIGH RISK 05/29/2012 MADL DENTAL HYGIENE INSTRUCTOR, ELIAS L V58.69 MEDICATION HIGH RISK 05/29/2012 DAVISON DO, VANESSA K V58.69 MEDICATION HIGH RISK 05/29/2012 DAVISON DO, VANESSA K V58.69 MEDICATION HIGH RISK 05/29/2012 MADL DENTAL HYGIENE INSTRUCTOR, ELIAS L V58.69 MEDICATION HIGH RISK 05/29/2012 MADL DENTAL HYGIENE INSTRUCTOR, ELIAS L V58.69 MEDICATION HIGH RISK 05/29/2012 ADVISON DO, VANESSA K V58.69 MEDICATION HIGH RISK 05/29/2012 MADL DENTAL HYGIENE INSTRUCTOR, ELIAS L V58.69 MEDICATION HIGH RISK 05/29/2012 DAVISON DO, VANESSA K V58.69 MEDICATION HIGH RISK 05/29/2012 MADL DENTAL HYGIENE INSTRUCTOR, ELIAS L V58.69 MEDICATION HIGH RISK 05/29/2012 DAVISON DO, VANESSA K V58.69 MEDICATION HIGH RISK 05/29/2012 MADL DENTAL HYGIENE INSTRUCTOR, ELIAS L V58.69 MEDICATION HIGH RISK 06/19/2012 V76.10 BREAST CANCER SCREENING 06/19/2012 V76.47 VAGINAL PAP SMEAR SCREENING 06/19/2012 V76.10 BREAST CANCER SCREENING 06/19/2012 V76.47 VAGINAL PAP SMEAR SCREENING 06/19/2012 V76.10 BREAST CANCER SCREENING 06/19/2012 V76.47 VAGINAL PAP SMEAR SCREENING 06/19/2012 V76.10 Breast Cancer Screening 06/19/2012 V76.47 Vaginal Pap Smear Screening 06/19/2012 PEÑA DAVISON DOA K V76.10 Breast Cancer Screening 06/19/2012 PEÑA DAVISON DOA K V76.47 Vaginal Pap Smear Screening 06/19/2012 ADA PURCELL MD, CRISPIN Omer V76.10 Breast Cancer Screening 06/19/2012 ADA PURCELL MD, CRISPIN Omer V76.47 Vaginal Pap Smear Screening 06/19/2012 PEÑA DAVISON DOA K V76.10 Breast Cancer Screening 06/19/2012 VANESSA DAVISON DO K V76.47 Vaginal Pap Smear Screening 06/19/2012 SAMAN MONTALVO VANESSA K V76.10 Breast Cancer Screening 06/19/2012 SAMAN MONTALVO VANESSA K V76.47 Vaginal Pap Smear Screening 06/19/2012 SAMAN MONTALVO VANESSA K V76.10 BREAST CANCER SCREENING 06/19/2012 SAMAN MONTALVO VANESSA K V76.47 VAGINAL PAP SMEAR SCREENING 06/19/2012 V76.10 Breast Cancer Screening 06/19/2012 V76.47 Vaginal Pap Smear Screening 06/19/2012 V76.10 Breast Cancer Screening 06/19/2012 V76.47 Vaginal Pap Smear Screening 06/19/2012 V76.10 Breast Cancer Screening 06/19/2012 V76.47 Vaginal Pap Smear Screening 06/19/2012 V76.10 Breast Cancer Screening 06/19/2012 V76.47 Vaginal Pap Smear Screening 06/19/2012 V76.10 Breast Cancer Screening 06/19/2012 V76.47 Vaginal Pap Smear Screening 06/19/2012 V76.10 Breast Cancer Screening 06/19/2012 V76.47 Vaginal Pap Smear Screening 06/19/2012 V76.10 Breast Cancer Screening 06/19/2012 V76.47 Vaginal Pap Smear Screening 06/19/2012 ASMAN MONTALVO VANESSA K V76.10 Breast Cancer Screening 06/19/2012 SAMAN MONTALVO VANESSA K V76.47 Vaginal Pap Smear Screening 06/19/2012 OLIVER ANGELES MD V76.10 Breast Cancer Screening 06/19/2012 OLIVER ANGELES MD V76.47 Vaginal Pap Smear Screening 06/19/2012 SAMAN VANESSA MONTALVO V76.10 Breast Cancer Screening 06/19/2012 SAMAN VANESSA MONTALVO V76.47 Vaginal Pap Smear Screening 06/19/2012 OLIVER ANGELES MD V76.10 Breast Cancer Screening 06/19/2012 OLIVER ANGELES MD V76.47 Vaginal Pap Smear Screening 06/19/2012 OLIVER ANGELES MD V76.10 Breast Cancer Screening 06/19/2012 OLIVER ANGELES MD V76.47 Vaginal Pap Smear Screening 06/19/2012 OLIVER ANGELES MD V76.10 Breast Cancer Screening 06/19/2012 OLIVER ANGELES MD V76.47 Vaginal Pap Smear Screening 06/19/2012 BONY ESPOSITO MD V76.10 Breast Cancer Screening 06/19/2012 BONY ESPOSITO MD V76.47 Vaginal Pap Smear Screening 06/19/2012 LISE WINTER APRN V76.10 Breast Cancer Screening 06/19/2012 LISE WINTER APRN V76.47 Vaginal Pap Smear Screening 06/19/2012 DAVISON DO VANESSA K V76.10 Breast Cancer Screening 06/19/2012 DAVISON DO, VANESSA K V76.47 Vaginal Pap Smear Screening 06/19/2012 MADL DENTAL HYGIENE INSTRUCTOR, ELIAS L V76.10 Breast Cancer Screening 06/19/2012 MADL DENTAL HYGIENE INSTRUCTOR, ELIAS L V76.47 Vaginal Pap Smear Screening 06/19/2012 MADL DENTAL HYGIENE INSTRUCTOR, ELIAS L V76.10 Breast Cancer Screening 06/19/2012 MADL DENTAL HYGIENE INSTRUCTOR, ELIAS L V76.47 Vaginal Pap Smear Screening 06/19/2012 DAVISON DO, VANESSA K V76.10 Breast Cancer Screening 06/19/2012 DAVISON DO VANESSA K V76.47 Vaginal Pap Smear Screening 06/19/2012 DAVISON DO, VANESSA K V76.10 Breast Cancer Screening 06/19/2012 DAVISON DO, VANESSA K V76.47 Vaginal Pap Smear Screening 06/19/2012 MADL DENTAL HYGIENE INSTRUCTOR, ELIAS L V76.10 Breast Cancer Screening 06/19/2012 MADL DENTAL HYGIENE INSTRUCTOR, ELIAS L V76.47 Vaginal Pap Smear Screening 06/19/2012 MADL DENTAL HYGIENE INSTRUCTOR, ELIAS L V76.10 Breast Cancer Screening 06/19/2012 MADL DENTAL HYGIENE INSTRUCTOR, ELIAS L V76.47 Vaginal Pap Smear Screening 06/19/2012 DAVISON DO VANESSA K V76.10 Breast Cancer Screening 06/19/2012 DAVISON DO, VANESSA K V76.47 Vaginal Pap Smear Screening 06/19/2012 MADL DENTAL HYGIENE INSTRUCTOR, ELIAS L V76.10 Breast Cancer Screening 06/19/2012 MADL DENTAL HYGIENE INSTRUCTOR, ELIAS L V76.47 Vaginal Pap Smear Screening 06/19/2012 DAVISON DO, VANESSA K V76.10 Breast Cancer Screening 06/19/2012 DAVISON DO, VANESSA K V76.47 Vaginal Pap Smear Screening 06/19/2012 MADL DENTAL HYGIENE INSTRUCTOR, ELIAS L V76.10 Breast Cancer Screening 06/19/2012 LOU MURCIAFernando ELIAS L V76.47 Vaginal Pap Smear Screening 06/19/2012 VANESSA DAVISON DO V76.10 Breast Cancer Screening 06/19/2012 VANESSA DAVISON DO V76.47 Vaginal Pap Smear Screening 06/19/2012 LOU MURCIAFernando ELIAS L V76.10 Breast Cancer Screening 06/19/2012 HANANEL DENTAL HYGIENE INSTRUCTOR, ELIAS L V76.47 Vaginal Pap Smear Screening 08/06/2012 Ot 174.4 MAL LIV BREAST UP-OUTER 09/06/2012 727.03 TRIGGER FINGER (ACQUIRED) 09/06/2012 727.04 RADIAL STYLOID TENOSYNOVITIS 09/06/2012 727.03 TRIGGER FINGER (ACQUIRED) 09/06/2012 727.04 RADIAL STYLOID TENOSYNOVITIS 09/06/2012 727.03 TRIGGER FINGER (ACQUIRED) 09/06/2012 727.04 RADIAL STYLOID TENOSYNOVITIS 09/06/2012 VANESSA DAVISON DO 727.03 TRIGGER FINGER (ACQUIRED) 09/06/2012 VANESSA DAVISON DO 727.04 RADIAL STYLOID TENOSYNOVITIS 09/06/2012 ADA PURCELL MD, CRISPIN Omer 727.03 TRIGGER FINGER (ACQUIRED) 09/06/2012 ADA PURCELL MD, CRISPIN Omer 727.04 RADIAL STYLOID TENOSYNOVITIS 09/06/2012 VANESSA DAVISON DO 727.03 TRIGGER FINGER (ACQUIRED) 09/06/2012 VANESSA DAVISON DO 727.04 RADIAL STYLOID TENOSYNOVITIS 09/06/2012 VANESSA DAVISON DO 727.03 TRIGGER FINGER (ACQUIRED) 09/06/2012 VANESSA DAVISON DO 727.04 RADIAL STYLOID TENOSYNOVITIS 09/06/2012 727.03 TRIGGER FINGER (ACQUIRED) 09/06/2012 727.04 RADIAL STYLOID TENOSYNOVITIS 09/06/2012 727.03 TRIGGER FINGER (ACQUIRED) 09/06/2012 727.04 RADIAL STYLOID TENOSYNOVITIS 09/06/2012 727.03 TRIGGER FINGER (ACQUIRED) 09/06/2012 727.04 RADIAL STYLOID TENOSYNOVITIS 09/06/2012 727.03 TRIGGER FINGER (ACQUIRED) 09/06/2012 727.04 RADIAL STYLOID TENOSYNOVITIS 09/06/2012 727.03 TRIGGER FINGER (ACQUIRED) 09/06/2012 727.04 RADIAL STYLOID TENOSYNOVITIS 09/06/2012 727.03 TRIGGER FINGER (ACQUIRED) 09/06/2012 727.04 RADIAL STYLOID TENOSYNOVITIS 09/06/2012 727.03 TRIGGER FINGER (ACQUIRED) 09/06/2012 727.04 RADIAL STYLOID TENOSYNOVITIS 09/06/2012 VANESSA DAVISON DO K 727.03 TRIGGER FINGER (ACQUIRED) 09/06/2012 VANESSA DAVISON DO K 727.04 RADIAL STYLOID TENOSYNOVITIS 09/06/2012 OLIVER ANGELES MD 727.03 TRIGGER FINGER (ACQUIRED) 09/06/2012 OLIVER ANGELES MD 727.04 RADIAL STYLOID TENOSYNOVITIS 09/06/2012 VANESSA DAVISON DO 727.03 TRIGGER FINGER (ACQUIRED) 09/06/2012 VANESSA DAVISON DO 727.04 RADIAL STYLOID TENOSYNOVITIS 09/06/2012 OLIVER ANGELES MD 727.03 TRIGGER FINGER (ACQUIRED) 09/06/2012 OLIVER ANGELES MD 727.04 RADIAL STYLOID TENOSYNOVITIS 09/06/2012 OLIVER ANGELES MD 727.03 TRIGGER FINGER (ACQUIRED) 09/06/2012 OLIVER ANGELES MD 727.04 RADIAL STYLOID TENOSYNOVITIS 09/06/2012 OLIVER ANGELES MD 727.03 TRIGGER FINGER (ACQUIRED) 09/06/2012 OLIVER ANGELES MD 727.04 RADIAL STYLOID TENOSYNOVITIS 09/06/2012 BONY ESPOSITO MD 727.03 TRIGGER FINGER (ACQUIRED) 09/06/2012 BONY ESPOSITO MD 727.04 RADIAL STYLOID TENOSYNOVITIS 09/06/2012 LISE WINTER APRN 727.03 TRIGGER FINGER (ACQUIRED) 09/06/2012 LISE WINTER APRN 727.04 RADIAL STYLOID TENOSYNOVITIS 09/06/2012 VANESSA DAVISON DO K 727.03 TRIGGER FINGER (ACQUIRED) 09/06/2012 VANESSA DAVISON DO K 727.04 RADIAL STYLOID TENOSYNOVITIS 09/06/2012 MADL DENTAL HYGIENE INSTRUCTOR, ELIAS L 727.03 TRIGGER FINGER (ACQUIRED) 09/06/2012 MADL DENTAL HYGIENE INSTRUCTOR, ELIAS L 727.04 RADIAL STYLOID TENOSYNOVITIS 09/06/2012 MADL DENTAL HYGIENE INSTRUCTOR, ELIAS L 727.03 TRIGGER FINGER (ACQUIRED) 09/06/2012 MADL DENTAL HYGIENE INSTRUCTOR, ELIAS L 727.04 RADIAL STYLOID TENOSYNOVITIS 09/06/2012 DAVISON DO, VANESSA K 727.03 TRIGGER FINGER (ACQUIRED) 09/06/2012 DAVISON DO, VANESSA K 727.04 RADIAL STYLOID TENOSYNOVITIS 09/06/2012 DAVISON DO, VANESSA K 727.03 TRIGGER FINGER (ACQUIRED) 09/06/2012 DAVISON DO, VANESSA K 727.04 RADIAL STYLOID TENOSYNOVITIS 09/06/2012 MADL DENTAL HYGIENE INSTRUCTOR, ELIAS L 727.03 TRIGGER FINGER (ACQUIRED) 09/06/2012 MADL DENTAL HYGIENE INSTRUCTOR, ELIAS L 727.04 RADIAL STYLOID TENOSYNOVITIS 09/06/2012 MADL DENTAL HYGIENE INSTRUCTOR, ELIAS L 727.03 TRIGGER FINGER (ACQUIRED) 09/06/2012 MADL DENTAL HYGIENE INSTRUCTOR, ELIAS L 727.04 RADIAL STYLOID TENOSYNOVITIS 09/06/2012 DAVISON DO, VANESSA K 727.03 TRIGGER FINGER (ACQUIRED) 09/06/2012 DAVISON DO, VANESSA K 727.04 RADIAL STYLOID TENOSYNOVITIS 09/06/2012 MADL DENTAL HYGIENE INSTRUCTOR, ELIAS L 727.03 TRIGGER FINGER (ACQUIRED) 09/06/2012 MADL DENTAL HYGIENE INSTRUCTOR, ELIAS L 727.04 RADIAL STYLOID TENOSYNOVITIS 09/06/2012 DAVISON DO, VANESSA K 727.03 TRIGGER FINGER (ACQUIRED) 09/06/2012 DAVISON DO, VAENSSA K 727.04 RADIAL STYLOID TENOSYNOVITIS 09/06/2012 MADL DENTAL HYGIENE INSTRUCTOR, ELIAS L 727.03 TRIGGER FINGER (ACQUIRED) 09/06/2012 MADL DENTAL HYGIENE INSTRUCTOR, ELIAS L 727.04 RADIAL STYLOID TENOSYNOVITIS 09/06/2012 DAVISON DO, VANESSA K 727.03 TRIGGER FINGER (ACQUIRED) 09/06/2012 DAVISON DO, VANESSA K 727.04 RADIAL STYLOID TENOSYNOVITIS 09/06/2012 MADL DENTAL HYGIENE INSTRUCTOR, ELIAS L 727.03 TRIGGER FINGER (ACQUIRED) 09/06/2012 MADL DENTAL HYGIENE INSTRUCTOR, ELIAS L 727.04 RADIAL STYLOID TENOSYNOVITIS 09/22/2012 Ot 174.4 MAL LIV BREAST UP-OUTER 12/06/2012 VANESSA DAVISON DO 786.50 CHEST PAIN 12/06/2012 VANESSA DAVISON DO V65.42 COUNSELING - SMOKING CESSATION 12/06/2012 786.50 CHEST PAIN 12/06/2012 V65.42 COUNSELING - SMOKING CESSATION 12/06/2012 786.50 CHEST PAIN 12/06/2012 V65.42 COUNSELING - SMOKING CESSATION 12/06/2012 786.50 CHEST PAIN 12/06/2012 V65.42 Intervention And Counseling On Cessation Of Tobacco Use 12/06/2012 786.50 CHEST PAIN 12/06/2012 V65.42 Intervention And Counseling On Cessation Of Tobacco Use 12/06/2012 786.50 CHEST PAIN 12/06/2012 V65.42 Intervention And Counseling On Cessation Of Tobacco Use 12/06/2012 786.50 CHEST PAIN 12/06/2012 V65.42 Intervention And Counseling On Cessation Of Tobacco Use 12/06/2012 786.50 CHEST PAIN 12/06/2012 V65.42 Intervention And Counseling On Cessation Of Tobacco Use 12/06/2012 VANESSA DAVISON DO 786.50 CHEST PAIN 12/06/2012 VANESSA DAVISON DO V65.42 Intervention And Counseling On Cessation Of Tobacco Use 12/06/2012 OLIVER ANGELES MD 786.50 CHEST PAIN 12/06/2012 OLIVER ANGELES MD V65.42 Intervention And Counseling On Cessation Of Tobacco Use 12/06/2012 VANESSA DAVISON DO 786.50 CHEST PAIN 12/06/2012 VANESSA DAVISON DO V65.42 Intervention And Counseling On Cessation Of Tobacco Use 12/06/2012 OLIVER ANGELES MD 786.50 CHEST PAIN 12/06/2012 OLIVER ANGELES MD V65.42 Intervention And Counseling On Cessation Of Tobacco Use 12/06/2012 OLIVER ANGELES MD 786.50 CHEST PAIN 12/06/2012 OLIVER ANGELES MD V65.42 Intervention And Counseling On Cessation Of Tobacco Use 12/06/2012 OLIVER ANGELES MD 786.50 CHEST PAIN 12/06/2012 OLIVER ANGELES MD V65.42 Intervention And Counseling On Cessation Of Tobacco Use 12/06/2012 BONY ESPOSITO MD 786.50 CHEST PAIN 12/06/2012 BONY ESPOSITO MD V65.42 Intervention And Counseling On Cessation Of Tobacco Use 12/06/2012 LISE WINTER APRN T 786.50 CHEST PAIN 12/06/2012 LISE WINTER APRN T V65.42 Intervention And Counseling On Cessation Of Tobacco Use 12/06/2012 DAVISON DO, VANESSA K 786.50 CHEST PAIN 12/06/2012 DAVISON DO, VANESSA K V65.42 Intervention And Counseling On Cessation Of Tobacco Use 12/06/2012 MADL DENTAL HYGIENE INSTRUCTOR, ELIAS L 786.50 CHEST PAIN 12/06/2012 MADL DENTAL HYGIENE INSTRUCTOR, ELIAS L V65.42 Intervention And Counseling On Cessation Of Tobacco Use 12/06/2012 MADL DENTAL HYGIENE INSTRUCTOR, ELIAS L 786.50 CHEST PAIN 12/06/2012 MADL DENTAL HYGIENE INSTRUCTOR, ELIAS L V65.42 Intervention And Counseling On Cessation Of Tobacco Use 12/06/2012 DAVISON DO, VANESSA K 786.50 CHEST PAIN 12/06/2012 DAVISON DO, VANESSA K V65.42 Intervention And Counseling On Cessation Of Tobacco Use 12/06/2012 DAVISON DO, VANESSA K 786.50 CHEST PAIN 12/06/2012 DAVISON DO, VANESSA K V65.42 INTERVENTION AND COUNSELING ON CESSATION OF TOBACCO USE 12/06/2012 MADL DENTAL HYGIENE INSTRUCTOR, ELIAS L 786.50 CHEST PAIN 12/06/2012 MADL DENTAL HYGIENE INSTRUCTOR, ELIAS L V65.42 INTERVENTION AND COUNSELING ON CESSATION OF TOBACCO USE 12/06/2012 MADL DENTAL HYGIENE INSTRUCTOR, ELIAS L 786.50 CHEST PAIN 12/06/2012 MADL DENTAL HYGIENE INSTRUCTOR, ELIAS L V65.42 INTERVENTION AND COUNSELING ON CESSATION OF TOBACCO USE 12/06/2012 DAVISON DO, VANESSA K 786.50 CHEST PAIN 12/06/2012 DAVISON DO, VANESSA K V65.42 INTERVENTION AND COUNSELING ON CESSATION OF TOBACCO USE 12/06/2012 MADL DENTAL HYGIENE INSTRUCTOR, ELIAS L 786.50 CHEST PAIN 12/06/2012 MADL DENTAL HYGIENE INSTRUCTOR, ELIAS L V65.42 INTERVENTION AND COUNSELING ON CESSATION OF TOBACCO USE 12/06/2012 VANESSA DAVISON DO 786.50 CHEST PAIN 12/06/2012 VANESSA DAVISON DO K V65.42 INTERVENTION AND COUNSELING ON CESSATION OF TOBACCO USE 12/06/2012 LOU MURCIAFernando ELIAS L 786.50 CHEST PAIN 12/06/2012 HANANEL DENTAL HYGIENE INSTRUCTOR ELIAS L V65.42 INTERVENTION AND COUNSELING ON CESSATION OF TOBACCO USE 12/06/2012 VANESSA DAVISON DO K 786.50 CHEST PAIN 12/06/2012 VANESSA DAVISON DO K V65.42 INTERVENTION AND COUNSELING ON CESSATION OF TOBACCO USE 12/06/2012 HANANEL DENTAL 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 King L 786.50 CHEST PAIN 12/06/2012 MADL DENTAL HYGIENE INSTRUCTORMÓNICA KingELIAS L V65.42 INTERVENTION AND COUNSELING ON CESSATION OF TOBACCO USE 12/19/2012 Ot 174.9 MALIGN NEOPL BREAST NOS 12/19/2012 Ot V10.41 HX-CERVICAL MALIGNANCY 02/01/2013 716.90 ARTHROPATHY 02/01/2013 786.07 Wheezing 02/01/2013 716.90 ARTHROPATHY 02/01/2013 786.07 Wheezing 02/01/2013 716.90 ARTHROPATHY 02/01/2013 786.07 Wheezing 02/01/2013 716.90 ARTHROPATHY 02/01/2013 786.07 Wheezing 02/01/2013 716.90 ARTHROPATHY 02/01/2013 786.07 Wheezing 02/01/2013 VANESSA DAVISON DO 716.90 ARTHROPATHY 02/01/2013 VANESSA DAVISON DO K 786.07 Wheezing 02/01/2013 OLIVER ANGELES MD 716.90 ARTHROPATHY 02/01/2013 OLIVER ANGELES MD 786.07 Wheezing 02/01/2013 VANESSA DAVISON DO 716.90 ARTHROPATHY 02/01/2013 VANESSA DAVISON DO K 786.07 Wheezing 02/01/2013 OLIVER ANGELES MD 716.90 ARTHROPATHY 02/01/2013 OLIVER ANGELES MD 786.07 Wheezing 02/01/2013 OLIVER ANGELES MD 716.90 ARTHROPATHY 02/01/2013 OLIVER ANGELES MD 786.07 Wheezing 02/01/2013 OLIVER ANGELES MD 716.90 ARTHROPATHY 02/01/2013 OLIVER ANGELES MD 786.07 Wheezing 02/01/2013 CATE VILLEGAS, BONY 716.90 ARTHROPATHY 02/01/2013 CATE VILLEGAS, BONY 786.07 Wheezing 02/01/2013 MOY DENTAL HYGIENE INSTRUCTORLISE King 716.90 ARTHROPATHY 02/01/2013 MOY DENTAL HYGIENE INSTRUCTORLISE King 786.07 Wheezing 02/01/2013 DAVISON DO, VANESSA K 716.90 ARTHROPATHY 02/01/2013 DAVISON DO, VANESSA K 786.07 Wheezing 02/01/2013 MADL DENTAL HYGIENE INSTRUCTOR, ELIAS L 716.90 ARTHROPATHY 02/01/2013 MADL DENTAL HYGIENE INSTRUCTOR, ELIAS L 786.07 Wheezing 02/01/2013 MADL DENTAL HYGIENE INSTRUCTOR, ELIAS L 716.90 ARTHROPATHY 02/01/2013 MADL DENTAL HYGIENE INSTRUCTOR, ELIAS L 786.07 Wheezing 02/01/2013 DAVISON DO, VANESSA K 716.90 ARTHROPATHY 02/01/2013 DAVISON DO, VANESSA K 786.07 Wheezing 02/01/2013 DAVISON DO, VANESSA K 716.90 ARTHROPATHY 02/01/2013 DAVISON DO, VANESSA K 786.07 WHEEZING 02/01/2013 MADL DENTAL HYGIENE INSTRUCTOR, ELIAS L 716.90 ARTHROPATHY 02/01/2013 MADL DENTAL HYGIENE INSTRUCTOR, ELIAS L 786.07 WHEEZING 02/01/2013 MADL DENTAL HYGIENE INSTRUCTOR, ELIAS L 716.90 ARTHROPATHY 02/01/2013 MADL DENTAL HYGIENE INSTRUCTOR, ELIAS L 786.07 WHEEZING 02/01/2013 DAVISON DO, VANESSA K 716.90 ARTHROPATHY 02/01/2013 DAVISON DO, VANESSA K 786.07 WHEEZING 02/01/2013 MADL DENTAL HYGIENE INSTRUCTOR, ELIAS L 716.90 ARTHROPATHY 02/01/2013 MADL DENTAL HYGIENE INSTRUCTOR, ELIAS L 786.07 WHEEZING 02/01/2013 DAVISON DO, VANESSA K 716.90 ARTHROPATHY 02/01/2013 DAVISON DO, VANESSA K 786.07 WHEEZING 02/01/2013 MADL DENTAL HYGIENE INSTRUCTOR, ELIAS L 716.90 ARTHROPATHY 02/01/2013 MADL DENTAL HYGIENE INSTRUCTOR, ELIAS L 786.07 WHEEZING 02/01/2013 DAVISON DO, VANESSA K 716.90 ARTHROPATHY 02/01/2013 DAVISON DO, VANESSA K 786.07 WHEEZING 02/01/2013 LOU MURCIAN, ELIAS L 716.90 ARTHROPATHY 02/01/2013 LOU DENTAL HYGIENE INSTRUCTOR, ELIAS L 786.07 WHEEZING 02/07/2013 357.2 DIABETIC PERPHERAL NEUROPATHY 02/07/2013 357.2 DIABETIC PERPHERAL NEUROPATHY 02/07/2013 357.2 DIABETIC PERPHERAL NEUROPATHY 02/07/2013 357.2 DIABETIC PERPHERAL NEUROPATHY 02/07/2013 357.2 DIABETIC PERPHERAL NEUROPATHY 02/07/2013 VANESSA DAVISON DO K 357.2 DIABETIC PERPHERAL NEUROPATHY 02/07/2013 OLIVER ANGELES MD 357.2 DIABETIC PERPHERAL NEUROPATHY 02/07/2013 VANESSA DAVISON DO K 357.2 DIABETIC PERPHERAL NEUROPATHY 02/07/2013 OLIVER ANGELES MD 357.2 DIABETIC PERPHERAL NEUROPATHY 02/07/2013 OLIVER ANGELES MD 357.2 DIABETIC PERPHERAL NEUROPATHY 02/07/2013 OLIVER ANGELES MD 357.2 DIABETIC PERPHERAL NEUROPATHY 02/07/2013 BONY ESPOSITO MD 357.2 DIABETIC PERPHERAL NEUROPATHY 02/07/2013 LISE WINTER APRN 357.2 DIABETIC PERPHERAL NEUROPATHY 02/07/2013 VANESSA DAVISON DO K 357.2 DIABETIC PERPHERAL NEUROPATHY 02/07/2013 LOU CUEVAS, ELIAS L 357.2 DIABETIC PERPHERAL NEUROPATHY 02/07/2013 LOU CUEVAS, ELIAS L 357.2 DIABETIC PERPHERAL NEUROPATHY 02/07/2013 VANESSA DAVISON DO K 357.2 DIABETIC PERPHERAL NEUROPATHY 02/07/2013 VANESSA DAVISON DO K 357.2 DIABETIC PERPHERAL NEUROPATHY 02/07/2013 LOU CUEVAS, ELIAS L 357.2 DIABETIC PERPHERAL NEUROPATHY 02/07/2013 LOU CUEVAS, ELIAS L 357.2 DIABETIC PERPHERAL NEUROPATHY 02/07/2013 VANESSA DAVISON DO K 357.2 DIABETIC PERPHERAL NEUROPATHY 02/07/2013 LOU CUEVAS, ELIAS L 357.2 DIABETIC PERPHERAL NEUROPATHY 02/07/2013 VANESSA DAVISON DO K 357.2 DIABETIC PERPHERAL NEUROPATHY 02/07/2013 LOU CUEVAS, ELIAS L 357.2 DIABETIC PERPHERAL NEUROPATHY 02/07/2013 DAVISON DO, VANESSA K 357.2 DIABETIC PERPHERAL NEUROPATHY 02/07/2013 MADL DENTAL HYGIENE INSTRUCTOR, ELIAS L 357.2 DIABETIC PERPHERAL NEUROPATHY 03/07/2013 782.3 EDEMA 03/07/2013 782.3 EDEMA 03/07/2013 782.3 EDEMA 03/07/2013 DAVISON DO, VANESSA K 782.3 EDEMA 03/07/2013 KARTHIK VILLEGAS, OLIVER Lamb 782.3 Edema 03/07/2013 DAVISON DO, VANESSA K 782.3 Edema 03/07/2013 KARTHIK VILLEGAS, OLIVER Lamb 782.3 Edema 03/07/2013 KARTHIK VILLEGAS, OLIVER Lamb 782.3 Edema 03/07/2013 KARTHIK VILLEGAS, OLIVER Lamb 782.3 Edema 03/07/2013 BONY ESPOSITO MD 782.3 Edema 03/07/2013 MOY CUEVAS, LISE Shazia 782.3 Edema 03/07/2013 DAVISON DO, VANESSA K 782.3 Edema 03/07/2013 MADL DENTAL HYGIENE INSTRUCTOR, ELIAS L 782.3 Edema 03/07/2013 MADL DENTAL HYGIENE INSTRUCTOR, ELIAS L 782.3 Edema 03/07/2013 DAVISON DO, VANESSA K 782.3 Edema 03/07/2013 DAVISON DO, VANESSA K 782.3 Edema 03/07/2013 MADL DENTAL HYGIENE INSTRUCTOR, ELIAS L 782.3 Edema 03/07/2013 MADL DENTAL HYGIENE INSTRUCTOR, ELIAS L 782.3 Edema 03/07/2013 DAVISON DO, VANESSA K 782.3 Edema 03/07/2013 MADL DENTAL HYGIENE INSTRUCTOR, ELIAS L 782.3 Edema 03/07/2013 DAVISON DO, VANESSA K 782.3 Edema 03/07/2013 MADL DENTAL HYGIENE INSTRUCTOR, ELIAS L 782.3 Edema 03/07/2013 DAVISON DO, VANESSA K 782.3 Edema 03/07/2013 MADL DENTAL HYGIENE INSTRUCTOR, ELIAS L 782.3 Edema 03/25/2013 Ot 174.9 MALIGN NEOPL BREAST NOS 03/25/2013 Ot V10.41 HX-CERVICAL MALIGNANCY 05/18/2013 110.1 ONYCHOMYCOSIS 05/18/2013 DAVISON DO, VANESSA K 110.1 ONYCHOMYCOSIS 05/18/2013 OLIVER ANGELES MD 110.1 ONYCHOMYCOSIS 05/18/2013 DAVISON DO VANESSA K 110.1 ONYCHOMYCOSIS 05/18/2013 OLIVER ANGELES MD 110.1 ONYCHOMYCOSIS 05/18/2013 OLIVER ANGELES MD 110.1 ONYCHOMYCOSIS 05/18/2013 OLIVER ANGELES MD 110.1 ONYCHOMYCOSIS 05/18/2013 BONY ESPOSITO MD 110.1 ONYCHOMYCOSIS 05/18/2013 MOY CUEVAS LISE T 110.1 ONYCHOMYCOSIS 05/18/2013 DAVISON DO, VANESSA K 110.1 ONYCHOMYCOSIS 05/18/2013 MADL DENTAL HYGIENE INSTRUCTOR, ELIAS L 110.1 ONYCHOMYCOSIS 05/18/2013 MADL DENTAL HYGIENE INSTRUCTOR, ELIAS L 110.1 ONYCHOMYCOSIS 05/18/2013 DAVISON DO, VANESSA K 110.1 ONYCHOMYCOSIS 05/18/2013 DAVISON DO, VANESSA K 110.1 ONYCHOMYCOSIS 05/18/2013 MADL DENTAL HYGIENE INSTRUCTOR, ELIAS L 110.1 ONYCHOMYCOSIS 05/18/2013 MADL DENTAL HYGIENE INSTRUCTOR, ELIAS L 110.1 ONYCHOMYCOSIS 05/18/2013 DAVISON DO, VANESSA K 110.1 ONYCHOMYCOSIS 05/18/2013 MADL DENTAL HYGIENE INSTRUCTOR, ELIAS L 110.1 ONYCHOMYCOSIS 05/18/2013 DAVISON DO, VANESSA K 110.1 ONYCHOMYCOSIS 05/18/2013 MADL DENTAL HYGIENE INSTRUCTOR, ELIAS L 110.1 ONYCHOMYCOSIS 05/18/2013 DAVISON DO, VANESSA K 110.1 ONYCHOMYCOSIS 05/18/2013 MADL DENTAL HYGIENE INSTRUCTOR, ELIAS L 110.1 ONYCHOMYCOSIS 10/15/2013 ANDRES VILLEGAS, SHELLEY Rudd Ot 174.9 MALIGN NEOPL BREAST NOS 10/15/2013 ANDRES VILLEGAS, SHELLEY Rudd Ot 250.00 DIAB MASOOD WO COMPL, TYPE II OR UNSPEC TY 10/15/2013 SHELLEY CAMPOS MD Ot 278.00 OBESITY, NOS 10/15/2013 SHELLEY CAMPOS MD Ot 401.9 HYPERTENSION NOS 10/15/2013 ANDRES VILLEGAS, SHELLEY Rudd Ot 719.45 JOINT PAIN-PELVIS 10/15/2013 SHELLEY CAMPOS MD, Ot V10.41 HX-CERVICAL MALIGNANCY 10/15/2013 SHELLEY CAMPOS MD, Ot V15.3 HX OF IRRADIATION 10/15/2013 SHELLEY CAMPOS MD, Ot V15.82 HISTORY OF TOBACCO USE 10/15/2013 SHELLEY CAMPOS MD, Ot V45.77 ACQRD ABSENCE OF GENITAL ORGANS 10/15/2013 SHELLEY CAMPOS MD, Ot V58.69 OTH MED,LT,CURRENT USE 10/15/2013 SHELLEY CAMPOS MD, Ot V85.42 BODY MASS INDEX 45.0-49.9, ADULT 10/15/2013 SHELLEY CAMPOS MD, Ot V86.0 ESTROGEN RECEPTOR POSITIVE STATUS [ER+] 10/15/2013 SHELLEY CAMPOS MD, Ot V87.41 PERSONAL HISTORY OF ANTINEOPLASTIC CHEMO 11/14/2013 OLIVER ANGELES MD 401.1 BENIGN HYPERTENSION 11/14/2013 OLIVER ANGELES MD 709.8 DERMOID CYST OF SKIN 11/14/2013 OLIVER ANGELES MD 786.59 ATYPICAL CHEST PAIN 11/14/2013 OLIVER ANGELES MD 401.1 BENIGN HYPERTENSION 11/14/2013 OLIVER ANGELES MD 709.8 DERMOID CYST OF SKIN 11/14/2013 OLIVER ANGELES MD 786.59 ATYPICAL CHEST PAIN 11/14/2013 BONY ESPOSITO MD 401.1 BENIGN HYPERTENSION 11/14/2013 BOYN ESPOSITO MD 709.8 DERMOID CYST OF SKIN 11/14/2013 BONY ESPOSITO MD 786.59 ATYPICAL CHEST PAIN 11/14/2013 LISE WINTER APRN 401.1 BENIGN HYPERTENSION 11/14/2013 LISE WINTER APRN 709.8 DERMOID CYST OF SKIN 11/14/2013 LISE WINTER APRN 786.59 ATYPICAL CHEST PAIN 11/14/2013 VANESSA DAVISON DO 401.1 BENIGN HYPERTENSION 11/14/2013 VANESSA DAVISON DO 709.8 DERMOID CYST OF SKIN 11/14/2013 VANESSA DAVISON DO K 786.59 ATYPICAL CHEST PAIN 11/14/2013 ELIAS BLAKE APRN L 401.1 BENIGN HYPERTENSION 11/14/2013 ELIAS BLAKE APRN L 709.8 DERMOID CYST OF SKIN 11/14/2013 MADL DENTAL HYGIENE INSTRUCTOR, ELIAS L 786.59 ATYPICAL CHEST PAIN 11/14/2013 MADL DENTAL HYGIENE INSTRUCTOR, ELIAS L 401.1 BENIGN HYPERTENSION 11/14/2013 MADL DENTAL HYGIENE INSTRUCTOR, ELIAS L 709.8 DERMOID CYST OF SKIN 11/14/2013 MADL DENTAL HYGIENE INSTRUCTOR, ELIAS L 786.59 ATYPICAL CHEST PAIN 11/14/2013 DAVISON DO, VANESSA K 401.1 BENIGN HYPERTENSION 11/14/2013 DAVISON DO, VANESSA K 709.8 DERMOID CYST OF SKIN 11/14/2013 DAVISON DO, VANESSA K 786.59 ATYPICAL CHEST PAIN 11/14/2013 DAVISON DO, VANESSA K 401.1 BENIGN HYPERTENSION 11/14/2013 DAVISON DO, VANESSA K 709.8 DERMOID CYST OF SKIN 11/14/2013 DAVISON DO, VANESSA K 786.59 ATYPICAL CHEST PAIN 11/14/2013 MADL DENTAL HYGIENE INSTRUCTOR, ELIAS L 401.1 BENIGN HYPERTENSION 11/14/2013 MADL DENTAL HYGIENE INSTRUCTOR, ELIAS L 709.8 DERMOID CYST OF SKIN 11/14/2013 MADL DENTAL HYGIENE INSTRUCTOR, ELIAS L 786.59 ATYPICAL CHEST PAIN 11/14/2013 MADL DENTAL HYGIENE INSTRUCTOR, ELIAS L 401.1 BENIGN HYPERTENSION 11/14/2013 MADL DENTAL HYGIENE INSTRUCTOR, ELIAS L 709.8 DERMOID CYST OF SKIN 11/14/2013 MADL DENTAL HYGIENE INSTRUCTOR, ELIAS L 786.59 ATYPICAL CHEST PAIN 11/14/2013 DAVISON DO, VANESSA K 401.1 BENIGN HYPERTENSION 11/14/2013 DAVISON DO, VANESSA K 709.8 DERMOID CYST OF SKIN 11/14/2013 DAVISON DO, VANESSA K 786.59 ATYPICAL CHEST PAIN 11/14/2013 MADL DENTAL HYGIENE INSTRUCTOR, ELIAS L 401.1 BENIGN HYPERTENSION 11/14/2013 MADL DENTAL HYGIENE INSTRUCTOR, ELIAS L 709.8 DERMOID CYST OF SKIN 11/14/2013 MADL DENTAL HYGIENE INSTRUCTOR, ELIAS L 786.59 ATYPICAL CHEST PAIN 11/14/2013 DAVISON DO, VANESSA K 401.1 BENIGN HYPERTENSION 11/14/2013 DAVISON DO, VANESSA K 709.8 DERMOID CYST OF SKIN 11/14/2013 DAVISON DO, VANESSA K 786.59 ATYPICAL CHEST PAIN 11/14/2013 MADL DENTAL HYGIENE INSTRUCTOR, ELIAS L 401.1 BENIGN HYPERTENSION 11/14/2013 MADL DENTAL HYGIENE INSTRUCTOR, ELIAS L 709.8 DERMOID CYST OF SKIN 11/14/2013 MADL DENTAL HYGIENE INSTRUCTOR, ELIAS L 786.59 ATYPICAL CHEST PAIN 11/14/2013 DAVISON DO, VANESSA K 401.1 BENIGN HYPERTENSION 11/14/2013 DAVISON DO, VANESSA K 709.8 DERMOID CYST OF SKIN 11/14/2013 DAVISON DO, VANESSA K 786.59 ATYPICAL CHEST PAIN 11/14/2013 MADL DENTAL HYGIENE INSTRUCTOR, ELIAS L 401.1 BENIGN HYPERTENSION 11/14/2013 MADL DENTAL HYGIENE INSTRUCTOR, ELIAS L 709.8 DERMOID CYST OF SKIN 11/14/2013 MADL DENTAL HYGIENE INSTRUCTOR, ELIAS L 786.59 ATYPICAL CHEST PAIN 12/11/2013 BONY ESPOSITO MD 214.0 LIPOMA OF SKIN AND SUBCUTANEOUS TISSUE OF FACE 12/11/2013 BONY ESPOSITO MD 701.9 SKIN TAG 12/11/2013 LISE WINTER APRN 214.0 LIPOMA OF SKIN AND SUBCUTANEOUS TISSUE OF FACE 12/11/2013 LISE WINTER APRN 701.9 SKIN TAG 12/11/2013 DAVISON DO, VANESSA K 214.0 LIPOMA OF SKIN AND SUBCUTANEOUS TISSUE OF FACE 12/11/2013 DAVISON DO, VANESSA K 701.9 SKIN TAG 12/11/2013 MADL DENTAL HYGIENE INSTRUCTOR, ELIAS L 214.0 LIPOMA OF SKIN AND SUBCUTANEOUS TISSUE OF FACE 12/11/2013 HANANEL DENTAL HYGIENE INSTRUCTOR, ELIAS L 701.9 SKIN TAG 12/11/2013 MADL DENTAL HYGIENE INSTRUCTOR, ELIAS L 214.0 LIPOMA OF SKIN AND SUBCUTANEOUS TISSUE OF FACE 12/11/2013 MADL DENTAL HYGIENE INSTRUCTOR, ELIAS L 701.9 SKIN TAG 12/11/2013 DAVISON DO, VANESSA K 214.0 LIPOMA OF SKIN AND SUBCUTANEOUS TISSUE OF FACE 12/11/2013 DAVISON DO, VANESSA K 701.9 SKIN TAG 12/11/2013 DAVISON DO, VANESSA K 214.0 LIPOMA OF SKIN AND SUBCUTANEOUS TISSUE OF FACE 12/11/2013 DAVISON DO, VANESSA K 701.9 SKIN TAG 12/11/2013 MADL DENTAL HYGIENE INSTRUCTOR, ELIAS L 214.0 LIPOMA OF SKIN AND SUBCUTANEOUS TISSUE OF FACE 12/11/2013 MADL DENTAL HYGIENE INSTRUCTOR, ELIAS L 701.9 SKIN TAG 12/11/2013 MADL DENTAL HYGIENE INSTRUCTOR, ELIAS L 214.0 LIPOMA OF SKIN AND SUBCUTANEOUS TISSUE OF FACE 12/11/2013 MADL DENTAL HYGIENE INSTRUCTOR, ELIAS L 701.9 SKIN TAG 12/11/2013 DAVISON DO, VANESSA K 214.0 LIPOMA OF SKIN AND SUBCUTANEOUS TISSUE OF FACE 12/11/2013 DAVISON DO, VANESSA K 701.9 SKIN TAG 12/11/2013 MADL DENTAL HYGIENE INSTRUCTOR, ELIAS L 214.0 LIPOMA OF SKIN AND SUBCUTANEOUS TISSUE OF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 eGFR If Africn Am 90 mL/min/1.73 >59 BUN/Creatinine Ratio 20 11-26 Sodium, Serum 143 mmol/L 134-144 Potassium, Serum 5.2 mmol/L 3.5-5.2 Chloride, Serum 103 mmol/L 96-106 Carbon Dioxide, Total 23 mmol/L 18-29 Calcium, Serum 10.3 mg/dL 8.7-10.3 Protein, Total, Serum 6.4 g/dL 6.0-8.5 Albumin, Serum 4.0 g/dL 3.6-4.8 Globulin, Total 2.4 g/dL 1.5-4.5 A/G Ratio 1.7 1.2-2.2 Bilirubin, Total 0.3 mg/dL 0.0-1.2 Alkaline Phosphatase, S 105 IU/L 39-117 AST (SGOT) 16 IU/L 0-40 ALT (SGPT) 15 IU/L 0-32 TSH - 12/14/16 14:07 TSH 2.000 uIU/mL 0.450-4.500 Vitamin B12 - 12/14/16 14:07 Vitamin B12 395 pg/mL 211-946 CBC With Differential/Platelet - 04/21/17 15:18 WBC 11.4 x10E3/uL 3.4-10.8 RBC 5.15 x10E6/uL 3.77-5.28 Hemoglobin 14.0 g/dL 11.1-15.9 Hematocrit 43.4 % 34.0-46.6 MCV 84 fL 79-97 MCH 27.2 pg 26.6-33.0 MCHC 32.3 g/dL 31.5-35.7 RDW 15.1 % 12.3-15.4 Platelets 382 x10E3/uL 150-379 Neutrophils 61 % Lymphs 29 % Monocytes 8 % Eos 2 % Basos 0 % Neutrophils (Absolute) 7.0 x10E3/uL 1.4-7.0 Lymphs (Absolute) 3.3 x10E3/uL 0.7-3.1 Monocytes(Absolute) 0.9 x10E3/uL 0.1-0.9 Eos (Absolute) 0.2 x10E3/uL 0.0-0.4 Baso (Absolute) 0.1 x10E3/uL 0.0-0.2 Immature Granulocytes 0 % Immature Grans (Abs) 0.0 x10E3/uL 0.0-0.1 Comp. Metabolic Panel (14) - 04/21/17 15:18 Glucose, Serum 123 mg/dL 65-99 BUN 14 mg/dL 8-27 Creatinine, Serum 0.89 mg/dL 0.57-1.00 eGFR If NonAfricn Am 70 mL/min/1.73 >59 eGFR If Africn Am 80 mL/min/1.73 >59 BUN/Creatinine Ratio 16 12-28 Sodium, Serum 141 mmol/L 134-144 Potassium, Serum 4.8 mmol/L 3.5-5.2 Chloride, Serum 101 mmol/L 96-106 Carbon Dioxide, Total 23 mmol/L 18-29 Calcium, Serum 10.2 mg/dL 8.7-10.3 Protein, Total, Serum 6.7 g/dL 6.0-8.5 Albumin, Serum 4.3 g/dL 3.6-4.8 Globulin, Total 2.4 g/dL 1.5-4.5 A/G Ratio 1.8 1.2-2.2 Bilirubin, Total 0.4 mg/dL 0.0-1.2 Alkaline Phosphatase, S 91 IU/L 39-117 AST (SGOT) 17 IU/L 0-40 ALT (SGPT) 16 IU/L 0-32 Lipid Panel - 04/21/17 15:18 Cholesterol, Total 169 mg/dL 100-199 Triglycerides 171 mg/dL 0-149 HDL Cholesterol 38 mg/dL >39 VLDL Cholesterol Patrick 34 mg/dL 5-40 LDL Cholesterol Calc 97 mg/dL 0-99 TSH - 04/21/17 15:18 TSH 1.630 uIU/mL 0.450-4.500 CMP - 18 17:31 GLUCOSE 83 mg/dL 65-99 UREA NITROGEN (BUN) 16 mg/dL 7-25 CREATININE 0.81 mg/dL 0.50-0.99 eGFR NON-AFR. [place] 77 mL/min/1.73m2 > OR=60 eGFR 90 mL/min/1.73m2 > OR=60 BUN/CREATININE RATIO NOT APPLICABLE (calc) 6-22 SODIUM 144 mmol/L 135-146 POTASSIUM 5.1 mmol/L 3.5-5.3 CHLORIDE 111 mmol/L 98-110 CARBON DIOXIDE 31 mmol/L 20-31 CALCIUM 10.0 mg/dL 8.6-10.4 PROTEIN, TOTAL 5.7 g/dL 6.1-8.1 ALBUMIN 3.8 g/dL 3.6-5.1 GLOBULIN 1.9 g/dL (calc) 1.9-3.7 ALBUMIN/GLOBULIN RATIO 2.0 (calc) 1.0-2.5 BILIRUBIN, TOTAL 0.3 mg/dL 0.2-1.2 ALKALINE PHOSPHATASE 76 U/L 33-130 AST 15 U/L 10-35 ALT 17 U/L 6-29 Complete blood count (CBC) with automated white blood cell (WBC) differential - 01/30/18 16:15 Blood leukocytes automated count (number/volume) 23.9 10*3/uL 4.3-11.0 Blood erythrocytes automated count (number/volume) 3.89 10*6/uL 4.35-5.85 Venous blood hemoglobin measurement (mass/volume) 8.8 g/dL 11.5-16.0 Blood hematocrit (volume fraction) 29 % 35-52 Automated erythrocyte mean corpuscular volume 74 [foz_us] 80-99 Automated erythrocyte mean corpuscular hemoglobin (mass per erythrocyte) 23 pg 25-34 Automated erythrocyte mean corpuscular hemoglobin concentration measurement ( mass/volume) 31 g/dL 32-36 Automated erythrocyte distribution width ratio 15.5 % 10.0-14.5 Automated blood platelet count (count/volume) 475 10*3/uL 130-400 Automated blood platelet mean volume measurement 10.3 [foz_us] 7.4-10.4 Automated blood neutrophils/100 leukocytes 83 % 42-75 Automated blood lymphocytes/100 leukocytes 7 % 12-44 Blood monocytes/100 leukocytes 10 % 0-12 Automated blood eosinophils/100 leukocytes 0 % 0-10 Automated blood basophils/100 leukocytes 0 % 0-10 Blood neutrophils automated count (number/volume) 19.8 10*3 1.8-7.8 Blood lymphocytes automated count (number/volume) 1.6 10*3 1.0-4.0 Blood monocytes automated count (number/volume) 2.4 10*3 0.0-1.0 Automated eosinophil count 0.1 10*3/uL 0.0-0.3 Automated blood basophil count (count/volume) 0.1 10*3/uL 0.0-0.1 PT panel in platelet poor plasma by coagulation assay - 01/30/18 16:15 Prothrombin time (PT) in platelet poor plasma by coagulation assay 14.5 s 12.2-14.7 INR in platelet poor plasma or blood by coagulation assay 1.1 0.8-1.4 Activated partial thromboplastin time (aPTT) in platelet poor plasma bycoagulation assay - 01/30/18 16:15 Activated partial thromboplastin time (aPTT) in platelet poor plasma bycoagulation assay 38 s 24-35 Comprehensive metabolic panel - 01/30/18 16:15 Serum or plasma sodium measurement (moles/volume) 140 mmol/L 135-145 Serum or plasma potassium measurement (moles/volume) 4.7 mmol/L 3.6-5.0 Serum or plasma chloride measurement (moles/volume) 107 mmol/L 98-107 Carbon dioxide 22 mmol/L 21-32 Serum or plasma anion gap determination (moles/volume) 11 mmol/L 5-14 Serum or plasma urea nitrogen measurement (mass/volume) 22 mg/dL 7-18 Serum or plasma creatinine measurement (mass/volume) 1.02 mg/dL 0.60-1.30 Serum or plasma urea nitrogen/creatinine mass ratio 22 NRG Serum or plasma creatinine measurement with calculation of estimated glomerular filtration rate 55 NRG Serum or plasma glucose measurement (mass/volume) 265 mg/dL 70-105 Serum or plasma calcium measurement (mass/volume) 10.0 mg/dL 8.5-10.1 Serum or plasma total bilirubin measurement (mass/volume) 0.5 mg/dL 0.1-1.0 Serum or plasma alkaline phosphatase measurement (enzymatic activity/volume) 170 U/L 40-136 Serum or plasma aspartate aminotransferase measurement (enzymatic activity/ volume) 20 U/L 5-34 Serum or plasma alanine aminotransferase measurement (enzymatic activity/volume ) 30 U/L 0-55 Serum or plasma protein measurement (mass/volume) 6.5 g/dL 6.4-8.2 Serum or plasma albumin measurement (mass/volume) 3.3 g/dL 3.2-4.5 Blood manual differential performed detection - 01/30/18 16:15 Blood monocytes/100 leukocytes 6 % NRG Manual blood segmented neutrophils/100 leukocytes 87 % NRG Blood band neutrophils/100 leukocytes 1 % NRG Manual blood lymphocytes/100 leukocytes 5 % NRG Manual eosinophils/100 leukocytes in nose 1 % NRG Manual blood basophils/100 leukocytes 0 % NRG Blood hypochromia detection by light microscopy SLIGHT NRG Blood microcytes detection by light microscopy SLIGHT NRG Complete urinalysis with reflex to culture - 01/30/18 18:05 Urine color determination YELLOW NRG Urine clarity determination CLEAR NRG Urine pH measurement by test strip 5 5-9 Specific gravity of urine by test strip 1.025 1.016- 1.022 Urine protein assay by test strip, semi-quantitative 2+ NEGATIVE Urine glucose detection by automated test strip NEGATIVE NEGATIVE Erythrocytes detection in urine sediment by light microscopy NEGATIVE NEGATIVE Urine ketones detection by automated test strip 1+ NEGATIVE Urine nitrite detection by test strip POSITIVE NEGATIVE Urine total bilirubin detection by test strip 1+ NEGATIVE Urine urobilinogen measurement by automated test strip (mass/volume) 1 mg/dL NORMAL Urine leukocyte esterase detection by dipstick 1+ NEGATIVE Automated urine sediment erythrocyte count by microscopy (number/high power field) NONE NRG Automated urine sediment leukocyte count by microscopy (number/high power field ) [HPF] NRG Bacteria detection in urine sediment by light microscopy NEGATIVE NRG Squamous epithelial cells detection in urine sediment by light microscopy 5-10 NRG Crystals detection in urine sediment by light microscopy NONE NRG Casts detection in urine sediment by light microscopy PRESENT NRG Mucus detection in urine sediment by light microscopy NEGATIVE NRG Complete urinalysis with reflex to culture YES NRG Hyaline casts detection in urine sediment by light microscopy 10-25 NRG Bacterial urine culture - 01/30/18 18:05 Bacterial urine culture [id number] NRG COLONY COUNT 10,000/ML - 100,000/ML NRG FTX;REPORTABLE NO FURTHER STUDIES UNLESS REQESTED NRG URINE CULTURE RESULTS PLUS NRG Blood lactic acid measurement (moles/volume) - 01/30/18 19:00 Blood lactic acid measurement (moles/volume) 1.49 mmol/L 0.50-2.00 Bacterial blood culture - 01/30/18 19:40 QUANTITY OF GROWTH Isolated NRG Bacterial blood culture [id number] NRG Bacterial blood culture - 01/30/18 19:50 Bacterial blood culture NG NRG Capillary blood glucose measurement by glucometer (mass/volume) - 01/30/18 21: 35 Capillary blood glucose measurement by glucometer (mass/volume) 175 mg/dL 70-110 Sputum Gram stain - 01/30/18 23:19 GRAM STAIN SPUTUM AND MIXED BACTERIAL [facility] Bacterial sputum culture - 01/30/18 23:19 Bacterial sputum culture NORMAL [facility] Complete blood count (CBC) with automated white blood cell (WBC) differential - 01/31/18 05:38 Blood leukocytes automated count (number/volume) 19.1 10*3/uL 4.3-11.0 Blood erythrocytes automated count (number/volume) 3.60 10*6/uL 4.35-5.85 Venous blood hemoglobin measurement (mass/volume) 8.0 g/dL 11.5-16.0 Blood hematocrit (volume fraction) 27 % 35-52 Automated erythrocyte mean corpuscular volume 75 [foz_us] 80-99 Automated erythrocyte mean corpuscular hemoglobin (mass per erythrocyte) 22 pg 25-34 Automated erythrocyte mean corpuscular hemoglobin concentration measurement ( mass/volume) 30 g/dL 32-36 Automated erythrocyte distribution width ratio 15.3 % 10.0-14.5 Automated blood platelet count (count/volume) 422 10*3/uL 130-400 Automated blood platelet mean volume measurement 10.7 [foz_us] 7.4-10.4 Automated blood neutrophils/100 leukocytes 90 % 42-75 Automated blood lymphocytes/100 leukocytes 6 % 12-44 Blood monocytes/100 leukocytes 4 % 0-12 Automated blood eosinophils/100 leukocytes 0 % 0-10 Automated blood basophils/100 leukocytes 0 % 0-10 Blood neutrophils automated count (number/volume) 17.2 10*3 1.8-7.8 Blood lymphocytes automated count (number/volume) 1.1 10*3 1.0-4.0 Blood monocytes automated count (number/volume) 0.7 10*3 0.0-1.0 Automated eosinophil count 0.0 10*3/uL 0.0-0.3 Automated blood basophil count (count/volume) 0.1 10*3/uL 0.0-0.1 Whole blood basic metabolic panel - 01/31/18 05:38 Serum or plasma sodium measurement (moles/volume) 139 mmol/L 135-145 Serum or plasma potassium measurement (moles/volume) 5.3 mmol/L 3.6-5.0 Serum or plasma chloride measurement (moles/volume) 109 mmol/L 98-107 Carbon dioxide 22 mmol/L 21-32 Serum or plasma anion gap determination (moles/volume) 8 mmol/L 5-14 Serum or plasma urea nitrogen measurement (mass/volume) 18 mg/dL 7-18 Serum or plasma creatinine measurement (mass/volume) 0.82 mg/dL 0.60-1.30 Serum or plasma urea nitrogen/creatinine mass ratio 22 NRG Serum or plasma creatinine measurement with calculation of estimated glomerular filtration rate > NRG Serum or plasma glucose measurement (mass/volume) 262 mg/dL 70-105 Serum or plasma calcium measurement (mass/volume) 9.7 mg/dL 8.5-10.1 Magnesium - 01/31/18 05:38 Magnesium 2.0 mg/dL 1.8-2.4 Serum or plasma C reactive protein measurement (mass/volume) - 01/31/18 05:38 Serum or plasma C reactive protein measurement (mass/volume) 25.59 mg/dL 0.00-0.50 Capillary blood glucose measurement by glucometer (mass/volume) - 01/31/18 10: 35 Capillary blood glucose measurement by glucometer (mass/volume) 360 mg/dL 70-110 Capillary blood glucose measurement by glucometer (mass/volume) - 01/31/18 16: 41 Capillary blood glucose measurement by glucometer (mass/volume) 274 mg/dL 70-110 Stool occult blood screen - 01/31/18 17:08 Stool gastrointestinal hemoglobin detection POSITIVE NEGATIVE Capillary blood glucose measurement by glucometer (mass/volume) - 01/31/18 21: 02 Capillary blood glucose measurement by glucometer (mass/volume) 343 mg/dL 70-110 Stool occult blood screen - 02/01/18 05:00 Stool gastrointestinal hemoglobin detection POSITIVE NEGATIVE Complete blood count (CBC) with automated white blood cell (WBC) differential - 02/01/18 07:23 Blood leukocytes automated count (number/volume) 21.9 10*3/uL 4.3-11.0 Blood erythrocytes automated count (number/volume) 3.56 10*6/uL 4.35-5.85 Venous blood hemoglobin measurement (mass/volume) 7.9 g/dL 11.5-16.0 Blood hematocrit (volume fraction) 27 % 35-52 Automated erythrocyte mean corpuscular volume 75 [foz_us] 80-99 Automated erythrocyte mean corpuscular hemoglobin (mass per erythrocyte) 22 pg 25-34 Automated erythrocyte mean corpuscular hemoglobin concentration measurement ( mass/volume) 30 g/dL 32-36 Automated erythrocyte distribution width ratio 15.5 % 10.0-14.5 Automated blood platelet count (count/volume) 497 10*3/uL 130-400 Automated blood platelet mean volume measurement 10.1 [foz_us] 7.4-10.4 Automated blood neutrophils/100 leukocytes 82 % 42-75 Automated blood lymphocytes/100 leukocytes 9 % 12-44 Blood monocytes/100 leukocytes 9 % 0-12 Automated blood eosinophils/100 leukocytes 0 % 0-10 Automated blood basophils/100 leukocytes 0 % 0-10 Blood neutrophils automated count (number/volume) 18.0 10*3 1.8-7.8 Blood lymphocytes automated count (number/volume) 2.0 10*3 1.0-4.0 Blood monocytes automated count (number/volume) 1.9 10*3 0.0-1.0 Automated eosinophil count 0.0 10*3/uL 0.0-0.3 Automated blood basophil count (count/volume) 0.0 10*3/uL 0.0-0.1 Whole blood basic metabolic panel - 02/01/18 07:23 Serum or plasma sodium measurement (moles/volume) 141 mmol/L 135-145 Serum or plasma potassium measurement (moles/volume) 4.2 mmol/L 3.6-5.0 Serum or plasma chloride measurement (moles/volume) 108 mmol/L 98-107 Carbon dioxide 23 mmol/L 21-32 Serum or plasma anion gap determination (moles/volume) 10 mmol/L 5-14 Serum or plasma urea nitrogen measurement (mass/volume) 20 mg/dL 7-18 Serum or plasma creatinine measurement (mass/volume) 0.72 mg/dL 0.60-1.30 Serum or plasma urea nitrogen/creatinine mass ratio 28 NRG Serum or plasma creatinine measurement with calculation of estimated glomerular filtration rate > NRG Serum or plasma glucose measurement (mass/volume) 245 mg/dL 70-105 Serum or plasma calcium measurement (mass/volume) 9.9 mg/dL 8.5-10.1 Magnesium - 02/01/18 07:23 Magnesium 1.8 mg/dL 1.8-2.4 Serum or plasma C reactive protein measurement (mass/volume) - 02/01/18 07:23 Serum or plasma C reactive protein measurement (mass/volume) 11.61 mg/dL 0.00-0.50 RED CELLS LEUKO REDUCED AS1 - 02/01/18 07:23 RED CELLS LEUKO REDUCED AS1 TRANSFUSED 02/02/18 1220 NRG Blood type T Indirect antibody screen panel - 02/01/18 07:23 ABO+Rh group OP NRG Transfusion band number [id number] NRG Blood group antibody screen NEGATIVE NRG Serum or plasma folate measurement (mass/volume) - 02/01/18 07:23 Serum or plasma folate measurement (mass/volume) 11.4 % 1.5-24.0 Serum iron and total iron binding capacity panel - 02/01/18 07:23 Serum or plasma iron measurement (mass/volume) 14 % 35- 180 Total iron binding capacity and transferrin saturation measurement 5 % 15-50 Iron binding capacity [mass/volume] in serum or plasma 266 % 280-380 UIBC (unsaturated iron binding capacity) 252 % 55-450 Serum or plasma ferritin measurement (mass/volume) 72.0 % 15.0-150.0 Cyanocobalamin measurement - 02/01/18 07:23 Vitamin B12 517 pg/mL 200-1000 Capillary blood glucose measurement by glucometer (mass/volume) - 02/01/18 11: 07 Capillary blood glucose measurement by glucometer (mass/volume) 167 mg/dL 70-110 Capillary blood glucose measurement by glucometer (mass/volume) - 02/01/18 16: 42 Capillary blood glucose measurement by glucometer (mass/volume) 105 mg/dL 70-110 Capillary blood glucose measurement by glucometer (mass/volume) - 02/01/18 21: 08 Capillary blood glucose measurement by glucometer (mass/volume) 154 mg/dL 70-110 Capillary blood glucose measurement by glucometer (mass/volume) - 02/02/18 05: 13 Capillary blood glucose measurement by glucometer (mass/volume) 96 mg/dL 70-110 Complete blood count (CBC) with automated white blood cell (WBC) differential - 02/02/18 05:41 Blood leukocytes automated count (number/volume) 15.0 10*3/uL 4.3-11.0 Blood erythrocytes automated count (number/volume) 3.38 10*6/uL 4.35-5.85 Venous blood hemoglobin measurement (mass/volume) 7.5 g/dL 11.5-16.0 Blood hematocrit (volume fraction) 26 % 35-52 Automated erythrocyte mean corpuscular volume 75 [foz_us] 80-99 Automated erythrocyte mean corpuscular hemoglobin (mass per erythrocyte) 22 pg 25-34 Automated erythrocyte mean corpuscular hemoglobin concentration measurement ( mass/volume) 29 g/dL 32-36 Automated erythrocyte distribution width ratio 15.5 % 10.0-14.5 Automated blood platelet count (count/volume) 442 10*3/uL 130-400 Automated blood platelet mean volume measurement 10.3 [foz_us] 7.4-10.4 Automated blood neutrophils/100 leukocytes 69 % 42-75 Automated blood lymphocytes/100 leukocytes 21 % 12-44 Blood monocytes/100 leukocytes 10 % 0-12 Automated blood eosinophils/100 leukocytes 1 % 0-10 Automated blood basophils/100 leukocytes 0 % 0-10 Blood neutrophils automated count (number/volume) 10.3 10*3 1.8-7.8 Blood lymphocytes automated count (number/volume) 3.1 10*3 1.0-4.0 Blood monocytes automated count (number/volume) 1.5 10*3 0.0-1.0 Automated eosinophil count 0.1 10*3/uL 0.0-0.3 Automated blood basophil count (count/volume) 0.0 10*3/uL 0.0-0.1 Whole blood basic metabolic panel - 02/02/18 05:41 Serum or plasma sodium measurement (moles/volume) 143 mmol/L 135-145 Serum or plasma potassium measurement (moles/volume) 3.5 mmol/L 3.6-5.0 Serum or plasma chloride measurement (moles/volume) 108 mmol/L 98-107 Carbon dioxide 26 mmol/L 21-32 Serum or plasma anion gap determination (moles/volume) 9 mmol/L 5-14 Serum or plasma urea nitrogen measurement (mass/volume) 18 mg/dL 7-18 Serum or plasma creatinine measurement (mass/volume) 0.72 mg/dL 0.60-1.30 Serum or plasma urea nitrogen/creatinine mass ratio 25 NRG Serum or plasma creatinine measurement with calculation of estimated glomerular filtration rate > NRG Serum or plasma glucose measurement (mass/volume) 84 mg/dL 70-105 Serum or plasma calcium measurement (mass/volume) 9.7 mg/dL 8.5-10.1 Magnesium - 02/02/18 05:41 Magnesium 1.8 mg/dL 1.8-2.4 Serum or plasma C reactive protein measurement (mass/volume) - 02/02/18 05:41 Serum or plasma C reactive protein measurement (mass/volume) 4.65 mg /dL 0.00-0.50 Capillary blood glucose measurement by glucometer (mass/volume) - 02/02/18 10: 56 Capillary blood glucose measurement by glucometer (mass/volume) 139 mg/dL 70-110 Capillary blood glucose measurement by glucometer (mass/volume) - 02/02/18 16: 49 Capillary blood glucose measurement by glucometer (mass/volume) 243 mg/dL 70-110 Venous blood hemoglobin measurement (mass/volume) - 02/02/18 18:40 Venous blood hemoglobin measurement (mass/volume) 8.7 g/dL 11.5-16.0 Blood hematocrit (volume fraction) - 02/02/18 18:40 Blood hematocrit (volume fraction) 29 % 35-52 Capillary blood glucose measurement by glucometer (mass/volume) - 02/02/18 20: 06 Capillary blood glucose measurement by glucometer (mass/volume) 202 mg/dL 70-110 Capillary blood glucose measurement by glucometer (mass/volume) - 02/03/18 05: 10 Capillary blood glucose measurement by glucometer (mass/volume) 130 mg/dL 70-110 Complete blood count (CBC) with automated white blood cell (WBC) differential - 02/03/18 05:30 Blood leukocytes automated count (number/volume) 13.3 10*3/uL 4.3-11.0 Blood erythrocytes automated count (number/volume) 3.65 10*6/uL 4.35-5.85 Venous blood hemoglobin measurement (mass/volume) 8.4 g/dL 11.5-16.0 Blood hematocrit (volume fraction) 28 % 35-52 Automated erythrocyte mean corpuscular volume 76 [foz_us] 80-99 Automated erythrocyte mean corpuscular hemoglobin (mass per erythrocyte) 23 pg 25-34 Automated erythrocyte mean corpuscular hemoglobin concentration measurement ( mass/volume) 30 g/dL 32-36 Automated erythrocyte distribution width ratio 16.6 % 10.0-14.5 Automated blood platelet count (count/volume) 453 10*3/uL 130-400 Automated blood platelet mean volume measurement 9.8 [foz_us] 7.4-10.4 Automated blood neutrophils/100 leukocytes 65 % 42-75 Automated blood lymphocytes/100 leukocytes 25 % 12-44 Blood monocytes/100 leukocytes 10 % 0-12 Automated blood eosinophils/100 leukocytes 1 % 0-10 Automated blood basophils/100 leukocytes 0 % 0-10 Blood neutrophils automated count (number/volume) 8.6 10*3 1.8-7.8 Blood lymphocytes automated count (number/volume) 3.3 10*3 1.0-4.0 Blood monocytes automated count (number/volume) 1.3 10*3 0.0-1.0 Automated eosinophil count 0.2 10*3/uL 0.0-0.3 Automated blood basophil count (count/volume) 0.0 10*3/uL 0.0-0.1 Whole blood basic metabolic panel - 02/03/18 05:30 Serum or plasma sodium measurement (moles/volume) 144 mmol/L 135-145 Serum or plasma potassium measurement (moles/volume) 3.6 mmol/L 3.6-5.0 Serum or plasma chloride measurement (moles/volume) 109 mmol/L 98-107 Carbon dioxide 27 mmol/L 21-32 Serum or plasma anion gap determination (moles/volume) 8 mmol/L 5-14 Serum or plasma urea nitrogen measurement (mass/volume) 15 mg/dL 7-18 Serum or plasma creatinine measurement (mass/volume) 0.71 mg/dL 0.60-1.30 Serum or plasma urea nitrogen/creatinine mass ratio 21 NRG Serum or plasma creatinine measurement with calculation of estimated glomerular filtration rate > NRG Serum or plasma glucose measurement (mass/volume) 113 mg/dL 70-105 Serum or plasma calcium measurement (mass/volume) 9.4 mg/dL 8.5-10.1 Magnesium - 02/03/18 05:30 Magnesium 2.0 mg/dL 1.8-2.4 Serum or plasma C reactive protein measurement (mass/volume) - 02/03/18 05:30 Serum or plasma C reactive protein measurement (mass/volume) 2.81 mg /dL 0.00-0.50 Capillary blood glucose measurement by glucometer (mass/volume) - 02/03/18 11: 14 Capillary blood glucose measurement by glucometer (mass/volume) 159 mg/dL 70-110 Stool occult blood screen - 02/03/18 14:00 Stool gastrointestinal hemoglobin detection NEGATIVE NEGATIVE CBC - 02/07/18 13:30 WHITE BLOOD CELL COUNT 13.6 Thousand/uL 3.8-10.8 RED BLOOD CELL COUNT 4.71 Million/uL 3.80-5.10 HEMOGLOBIN 10.7 g/dL 11.7-15.5 HEMATOCRIT 35.6 % 35.0-45.0 MCV 75.6 fL 80.0-100.0 MCH 22.7 pg 27.0-33.0 MCHC 30.1 g/dL 32.0-36.0 RDW 16.6 % 11.0-15.0 PLATELET COUNT 593 Thousand/uL 140-400 MPV 10.1 fL 7.5-12.5 ABSOLUTE NEUTROPHILS 9357 cells/uL 3148-8851 ABSOLUTE LYMPHOCYTES 3128 cells/uL 850-3900 ABSOLUTE MONOCYTES 762 cells/uL 200-950 ABSOLUTE EOSINOPHILS 299 cells/uL 15-500 ABSOLUTE BASOPHILS 54 cells/uL 0-200 NEUTROPHILS 68.8 % NRG LYMPHOCYTES 23.0 % NRG MONOCYTES 5.6 % NRG EOSINOPHILS 2.2 % NRG BASOPHILS 0.4 % NRG Encounters ACCT No. Visit Date/Time Discharge Status Pt. Type Provider Facility Loc./Unit Complaint [id number] 01/01/2015 13:59:00 01/01/2015 23:59:59 CLS Outpatient ELIAS BLAKE APRN [id number] 12/18/2014 09:33:00 12/18/2014 23:59:59 CLS Outpatient VANESSA DAVISON DO [id number] 12/06/2014 14:01:00 12/06/2014 23:59:59 CLS Outpatient ELIAS BLAKE APRN [id number] 10/17/2014 10:58:00 10/17/2014 23:59:59 CLS Outpatient ELIAS BLAKE APRN [id number] 10/17/2014 10:58:00 10/17/2014 23:59:59 CLS Outpatient VANESSA DAVISON DO [id number] 08/01/2014 15:15:00 08/01/2014 23:59:59 CLS Outpatient VANESSA DAVISON DO [id number] 05/16/2014 08:56:00 05/16/2014 23:59:59 CLS Outpatient ELIAS BLAKE APRN [id number] 05/16/2014 08:56:00 05/16/2014 23:59:59 CLS Outpatient 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 L [id number] 04/15/2014 14:47:00 04/15/2014 23:59:59 CLS Outpatient DAVISON DOVANESSA [id number] 03/15/2014 13:46:00 03/15/2014 23:59:59 CLS Outpatient DAVISON DOVANESSA [id number] 02/12/2014 14:19:00 02/12/2014 23:59:59 CLS Outpatient 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 L [id number] 02/12/2014 14:19:00 02/12/2014 23:59:59 CLS Outpatient MADL DENTAL 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 L [id number] 01/11/2014 13:49:00 01/11/2014 23:59:59 CLS Outpatient DAVISON DOVANESSA [id number] 12/21/2013 08:52:00 12/21/2013 23:59:59 CLS Outpatient MOY DENTAL HYGIENE INSTRUCTORLISE King [id number] 12/11/2013 13:41:00 12/11/2013 23:59:59 CLS Outpatient BONY ESPOSITO MD [id number] 11/14/2013 10:45:00 11/14/2013 23:59:59 CLS Outpatient OLIVER ANGELES MD [id number] 11/14/2013 10:45:00 11/14/2013 23:59:59 CLS Outpatient OLIVER ANGELES MD [id number] 07/05/2013 11:19:00 07/05/2013 23:59:59 CLS Outpatient DAVISON DOVANESSA [id number] 06/26/2013 13:26:00 06/26/2013 23:59:59 CLS Outpatient OLIVER ANGELES MD [id number] 06/26/2013 13:26:00 06/26/2013 23:59:59 CLS Outpatient OLIVER ANGELES MD [id number] 05/18/2013 08:16:00 05/18/2013 23:59:59 CLS Outpatient DAVISON DOVANESSA [id number]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
[2018-02-28] MEDS ORDERED: HURRICAINE EXT TUBE (BENZOCAINE) XX PRN (07:15)
[2018-02-28] MEDS ORDERED: LIDOCAINE TOPICAL 4% 50 ML BTL TP ONE (07:15)
[2018-02-28] MEDS ORDERED: GLYCOPYRROLATE 0.2 MG/ML (ROBINUL) 2 ML VIAL IV ONE (07:15)
[2018-02-28 07:26] VITALS: BP 166/70
[2018-02-28] MEDS ORDERED: GLYCOPYRROLATE 0.2 MG/ML (ROBINUL) 2 ML VIAL ONE (07:40)
[2018-02-28] MEDS ORDERED: MIDAZOLAM 2 MG/2 ML (VERSED) VIAL ONE (07:40)
[2018-02-28] MEDS ORDERED: PROPOFOL INJECTION 50 ML IV ONE (07:40)
--- NOTE | 2018-02-28 08:05 | Progress Note-Pre Operative ---
Pre-Operative Progress Note H&P Reviewed The H&P was reviewed, patient examined and no changes noted. Date Seen by Provider: Feb 28, 2018 Time Seen by Provider: 08:04 Date H&P Reviewed: Feb 28, 2018 Time H&P Reviewed: 08:04 Pre-Operative Diagnosis: anemia occult + stool TITA STANFORD DO Feb 28, 2018 08:05
--- NOTE | 2018-02-28 09:02 | Progress Note-Post Operative ---
Post-Operative Progess Note Surgeon (s)/Design Technician (s) Surgeon TITA STANFORD DO Design Technician: na Pre-Operative Diagnosis anemia occult + stool Post-Operative Diagnosis normal egd, sigmoid colon polyp Procedure & Operative Findings Date of Procedure 02/28/18 Procedure Performed/Findings egd c biopsy antrum, colonoscopy with snare polypectomy Anesthesia Type per [facility] Estimated Blood Loss Estimated blood loss (mL): none Specimens/Packing Specimens Removed antrum, sigmoid polyp TITA STANFORD DO Feb 28, 2018 09:02
--- NOTE | 2018-02-28 09:06 | Discharge Inst-Simple/Standard ---
Discharge Inst-Standard Patient Instructions/Follow Up Plan of Care/Instructions/FU: 2 weeks Zach Activity as Tolerated: Yes Discharge Diet: Regular Diet (high fiber) TITA STANFORD DO Feb 28, 2018 09:06
[2018-02-28 09:20] VITALS: BP 157/63
[2018-02-28 09:50] VITALS: BP 146/44
[2018-02-28 10:05] VITALS: BP 146/44
--- NOTE | 2018-02-28 10:49 | Anesthesia-General Post-Op ---
MAC Patient Condition Mental Status/LOC: Same as Preop Cardiovascular: Satisfactory Nausea/Vomiting: Absent Respiratory: Satisfactory Pain: Controlled Complications: Absent Post Op Complications Complications None Follow Up Care/Instructions Patient Instructions None needed. Anesthesiology Discharge Order Discharge Order Patient is doing well, no complaints, stable vital signs, no apparent adverse anesthesia problems. No complications reported per nursing. IRIS GILLILAND CRNA Feb 28, 2018 10:49
--- NOTE | 2018-02-28 13:32 | OPERATIVE REPORT ---
DATE OF SERVICE: 02/28/2018 PREOPERATIVE DIAGNOSES: Occult positive stool and anemia. POSTOPERATIVE DIAGNOSIS: Normal EGD and sigmoid colon polyp. PROCEDURE: EGD with biopsy of the antrum and colonoscopy with snare polypectomy of sigmoid colon polyp. SURGEON: Tita Serrano DO ANESTHESIA: Per MDA. ESTIMATED BLOOD LOSS: None. COMPLICATIONS: None. INDICATIONS: The patient is a 62-year-old female with recent hospitalization for pneumonia. She was found to be anemic and have occult positive stool. She was explained risks and benefits of having EGD and colonoscopy performed. She understands risks and benefits of procedure and wished to proceed with procedure. Consent was signed on the chart. DESCRIPTION OF PROCEDURE: The patient was taken to the endoscopy suite, placed in left lateral recumbent position. Timeout was performed. Scope was inserted in mouth, down the esophagus, stomach and into the duodenum without difficulty. There were no polyps, masses or ulcerations within the duodenum. Scope was slowly retracted back into the stomach where it was further insufflated. No polyps, masses or ulcerations visualized. Biopsy of the antrum was obtained. Scope was retroflexed noting no other pathology. Scope was returned to its normal position, slowly withdrawn to the distal esophagus, which had no polyps, masses or ulcerations. The scope was then slowly retracted and completely removed, noting no other pathology. Digital rectal exam was performed noting some slight internal hemorrhoids. No other pathology. No polyps, masses or ulcerations. Scope was inserted in the rectum and advanced all the way to the cecum with minimal difficulty. A few small submucosal lipomas present. No polyps, masses or ulcerations within the cecum, ascending, transverse, descending and sigmoid colon. Also in the sigmoid, there was a slightly greater than 1 cm polyp that was pedunculated in the sigmoid colon and a snare polypectomy was performed. This was then removed for pathology. Scope was reinserted to the point of the polyp and then slowly retracted back into the rectum where there were no polyps, masses or ulcerations. The scope was retroflexed noting no other pathology except for some hemorrhoidal disease. Scope was returned to its normal position, slowly withdrawn and completely removed. The patient tolerated the procedure well without any complications. She was taken to recovery room in stable condition. RECOMMENDATIONS: The patient is to continue on current medications. The patient will need repeat colonoscopy in one year to reevaluate due to the larger polyp. If she has any change in condition before that, she should be reevaluated at that time. We will have her follow up in 2 weeks to discuss pathology results. Job ID: [id number] DocumentID: [id number] Dictated Date: 02/28/2018 09:09:48 Warp Dyeing Tender Date: 02/28/2018 13:31:56 Dictated By: TITA SERRANO DO
== END 2018-02-28 10:05 | disposition home or self-care (01) ==
LOC: ENDO 06:43
PROVIDERS: ATTEND Surgery
DX: D12.5 Benign neoplasm of sigmoid colon (principal); R19.5 Other fecal abnormalities; D64.9 Anemia, unspecified; E11.42 Type 2 diabetes mellitus with diabetic polyneuropathy; I10 Essential (primary) hypertension; J44.9 Chronic obstructive pulmonary disease, unspecified; F17.210 Nicotine dependence, cigarettes, uncomplicated; E66.01 Morbid (severe) obesity due to excess calories; Z68.42 Body mass index [BMI] 45.0-49.9, adult; Z79.4 Long term (current) use of insulin; Z79.82 Long term (current) use of aspirin; Z79.899 Other long term (current) drug therapy
CPT/HCPCS: 82962; 88305

== ENCOUNTER → 2018-09-14 | Outpatient (CLI) | payer MEDICARE, OTHER ==
[~2018-09-14] MED LIST changes: +METF-399 PO; -METF10002 PO
--- NOTE | 2018-09-14 19:54 | Diagnostic Imaging Report ---
INDICATION: Right breast carcinoma. Correlation is made prior mammogram from 09/06/2017 and 09/02/2016. 2-D and 3-D bilateral diagnostic mammography was performed with a Computer Aided Detection (CAD) system. FINDINGS: Scattered fibroglandular densities are identified bilaterally. Postlumpectomy changes in the inner right breast again noted. Overall parenchymal pattern appears stable. No new mass or malignant appearing microcalcifications are seen. There is some skin thickening on the right, unchanged. The axillae are unremarkable. IMPRESSION: No mammographic features suspicious for malignancy are identified. ACR BI-RADS Category 2: Benign findings. Result letter will be mailed to the patient. Note: At least 10% of breast cancer is not imaged by mammography. Dictated by: Dictated on workstation # [id number]
== END ==
LOC: RAD 13:02
PROVIDERS: ATTEND Nurse Practitioner Family
DX: C50.911 Malignant neoplasm of unspecified site of right female breast (principal); Z98.890 Other specified postprocedural states
CPT/HCPCS: 77066

== ENCOUNTER 2019-03-20 05:32 | Outpatient (CLI) | payer MEDICARE, OTHER ==
[~2019-03-20] VITALS: Ht 170.2 cm; Wt 136.1 kg
[2019-03-20] MEDS ORDERED: IRON18TA PO (13:22)
== END 2019-03-20 13:28 | disposition home or self-care (01) ==
LOC: PREOP 05:32
PROVIDERS: ATTEND Surgery
DX: Z01.818 Encounter for other preprocedural examination (principal)

== ENCOUNTER 2019-03-27 07:50 | Day surgery (SDC) | payer MEDICARE, OTHER ==
[~2019-03-27] VITALS: Ht 170.2 cm; Wt 136.1 kg
[~2019-03-27 07:50] MED LIST changes: +IRON18TA PO
[2019-03-27] MEDS ORDERED: LACTATED RINGERS 1,000 ML IV STA (07:58)
[2019-03-27] MEDS ORDERED: MIDAZOLAM 2 MG/2 ML (VERSED) VIAL ONE (08:04)
[2019-03-27] MEDS ORDERED: proPOfol 200 MG/20 ML (DIPRIVAN) VIAL IV ONE (08:04)
--- NOTE | 2019-03-27 08:15 | Progress Note-Pre Operative ---
Pre-Operative Progress Note H&P Reviewed The H&P was reviewed, patient examined and no changes noted. Date Seen by Provider: Mar 27, 2019 Time Seen by Provider: 08:14 Date H&P Reviewed: Mar 27, 2019 Time H&P Reviewed: 08:15 Pre-Operative Diagnosis: blood in stools, history of polyps TITA STANFORD DO Mar 27, 2019 08:15
[2019-03-27 08:28] VITALS: BP 121/57
--- NOTE | 2019-03-27 09:13 | Progress Note-Post Operative ---
Post-Operative Progess Note Surgeon (s)/Lacing Cutter (s) Surgeon TITA STANFORD DO Lacing Cutter: na Pre-Operative Diagnosis blood in stools, history of polyps Post-Operative Diagnosis rectal polyp, hemorrhoids Procedure & Operative Findings Date of Procedure 03/27/19 Procedure Performed/Findings colonoscopy with cold biopsy polypectomy Anesthesia Type per mda Estimated Blood Loss Estimated blood loss (mL): scant Specimens/Packing Specimens Removed rectal polyp TITA STANFORD DO Mar 27, 2019 09:13
--- NOTE | 2019-03-27 09:15 | Discharge Inst-Simple/Standard ---
Discharge Inst-Standard Patient Instructions/Follow Up Plan of Care/Instructions/FU: 2-3 weeks Zach Activity as Tolerated: Yes Discharge Diet: Regular Diet TITA STANFORD DO Mar 27, 2019 09:15
[2019-03-27 09:25] VITALS: BP 134/61
[2019-03-27 10:00] VITALS: BP 132/66
[2019-03-27 10:15] VITALS: BP 132/66
--- NOTE | 2019-03-27 11:46 | Anesthesia-General Post-Op ---
MAC Patient Condition Mental Status/LOC: Same as Preop Cardiovascular: Satisfactory Nausea/Vomiting: Absent Respiratory: Satisfactory Pain: Controlled Complications: Absent Post Op Complications Complications None Follow Up Care/Instructions Patient Instructions None needed. Anesthesiology Discharge Order Discharge Order Patient is doing well, no complaints, stable vital signs, no apparent adverse anesthesia problems. No complications reported per nursing. ESTHELA DOBSON CRNA Mar 27, 2019 11:46
--- NOTE | 2019-03-27 16:05 | OPERATIVE REPORT ---
DATE OF SERVICE: 03/27/2019 PREOPERATIVE DIAGNOSIS: Blood in stools, history of polyps. POSTOPERATIVE DIAGNOSIS: Rectal polyp, hemorrhoids. PROCEDURE: Colonoscopy with cold biopsy polypectomy. SURGEON: Tita Serrano DO ANESTHESIA: Per MDA. ESTIMATED BLOOD LOSS: Scant. COMPLICATIONS: None. INDICATIONS: The patient is a 63-year-old female with a recent bleeding and history of polyps. She understood risks and benefits of procedure and wished to proceed with procedure. Consent was signed in the chart. PROCEDURE: The patient was taken to the endoscopy suite, placed in left lateral recumbent position. Timeout was performed. Scope was inserted. Digital rectal exam was performed. There were no palpable polyps, masses or ulcerations. Some hemorrhoidal disease. Scope was inserted in the rectum and advanced all the way to the cecum with minimal difficulty. Prep was adequate. Scope was then slowly retracted back. There were no polyps, masses or ulcerations within the cecum, ascending, transverse, descending and sigmoid colon. In the rectum, a very small polyp which cold biopsy polypectomy was performed. Scope was retroflexed noting internal hemorrhoids. Scope was returned to its normal position, slowly withdrawn until completely removed. The patient tolerated procedure well without any complications. She was taken to recovery room in stable condition. RECOMMENDATIONS: The patient will need repeat colonoscopy in 5 years. If she has any issues before that be seen at that time. She will follow up in the office in two weeks to discuss pathology results. The patient with internal hemorrhoids if bothersome could consider HET therapy. The patient's bleeding likely source is the hemorrhoids. Job ID: [id number] DocumentID: [id number] Dictated Date: 03/27/2019 09:23:07 Tip Printer Date: 03/27/2019 16:05:03 Dictated By: [facility]ITA [facility]ERRANO DO [facility]
== END 2019-03-27 10:15 | disposition home or self-care (01) ==
LOC: ENDO 07:50
PROVIDERS: ATTEND Surgery
DX: K62.1 Rectal polyp (principal); I10 Essential (primary) hypertension; E11.40 Type 2 diabetes mellitus with diabetic neuropathy, unspecified; E78.5 Hyperlipidemia, unspecified; J44.9 Chronic obstructive pulmonary disease, unspecified; K21.9 Gastro-esophageal reflux disease without esophagitis; Z79.4 Long term (current) use of insulin; Z79.899 Other long term (current) drug therapy; Z79.82 Long term (current) use of aspirin; Z85.3 Personal history of malignant neoplasm of breast; Z85.41 Personal history of malignant neoplasm of cervix uteri; Z87.891 Personal history of nicotine dependence; Z86.010 Personal history of colon polyps
CPT/HCPCS: 82962

== ENCOUNTER 2019-06-21 05:30 | Outpatient (CLI) | payer MEDICARE ==
[~2019-06-21] VITALS: Ht 170 cm; Wt 129.5 kg
[~2019-06-21 05:30] MED LIST changes: -OMEP20CA12 PO; +OMEP20CA13 PO
== END 2019-06-21 15:51 | disposition home or self-care (01) ==
LOC: PREOP 05:30
PROVIDERS: ATTEND Surgery
DX: Z01.818 Encounter for other preprocedural examination (principal)

== ENCOUNTER → 2019-08-08 | Outpatient (CLI) | payer MEDICARE ==
--- NOTE | 2019-08-08 08:34 | Diagnostic Imaging Report ---
INDICATION: Palpable lump right axilla. Correlation is made with prior mammogram from 09/14/2018. Unilateral right 2-D and 3-D diagnostic mammography was performed with CAD. There are post therapeutic changes from lumpectomy in the inner right breast. Overall parenchymal pattern is stable. No mass or malignant appearing microcalcifications are seen. No abnormality at the area of palpable abnormality in the right axilla is seen. IMPRESSION: BI-RADS 0 Stable right mammogram with no mammographic features suspicious for malignancy. Even so, directed sonographic interrogation of the area of palpable abnormality in the right axilla is recommended and will be performed today. ACR BI-RADS Category 0: Incomplete. (Needs additional imaging evaluation). Result letter will be mailed to the patient. Note: At least 10% of breast cancer is not imaged by mammography. Dictated by: Dictated on workstation # [id number]
--- NOTE | 2019-08-09 08:25 | Diagnostic Imaging Report ---
INDICATION: Palpable lump in the right axilla. Correlation is made with diagnostic mammogram earlier the same day. Sonographic interrogation of the area of palpable abnormality right axilla was performed. There is a lymph node at this location measuring 1.8 x 1.1 x 1.9 cm. This is indeterminate. There does appear to be a fatty hilum. No other masses are seen. IMPRESSION: BI-RADS Category 2 A mildly prominent lymph node right axilla however this does demonstrate a fatty hilum and shows no evidence of architectural distortion. Follow-up ultrasound could be performed to confirm stability if clinically indicated. No other abnormalities are seen. Dictated by: Dictated on workstation # [id number]
== END ==
LOC: RAD 08:08
PROVIDERS: ATTEND Nurse Practitioner Family
DX: N63.10 Unspecified lump in the right breast, unspecified quadrant (principal)

== ENCOUNTER → 2019-09-13 | Outpatient (CLI) | payer MEDICARE ==
--- NOTE | 2019-09-13 19:08 | Diagnostic Imaging Report ---
INDICATION: Right breast carcinoma, status post lumpectomy. Correlation is made with prior mammograms from 08/08/2019, 09/14/2018, and 09/06/2017. 2-D and 3-D bilateral diagnostic mammography was performed with a Computer Aided Detection (CAD) system. 3-D tomosynthesis was also performed and reviewed. FINDINGS: Scattered fibroglandular densities are identified bilaterally. There are post-lumpectomy changes in the medial right breast. Lumpectomy site appear stable. There is unchanged skin thickening in the right breast. No new mass or malignant appearing microcalcifications are seen. Left breast is unremarkable. Axillae are unremarkable. IMPRESSION: Stable mammogram with no mammographic features suspicious for malignancy. ACR BI-RADS Category 2: Benign findings. Result letter will be mailed to the patient. Note: At least 10% of breast cancer is not imaged by mammography. Dictated by: Dictated on workstation # [id number]
== END ==
LOC: RAD 14:10
PROVIDERS: ATTEND Nurse Practitioner Family
DX: N63.10 Unspecified lump in the right breast, unspecified quadrant (principal); Z85.3 Personal history of malignant neoplasm of breast
CPT/HCPCS: 77066

== ENCOUNTER → 2020-08-20 | Outpatient (CLI) | payer MEDICARE ==
[~2020-08-20] MED LIST changes: +ASPI-1238 PO; -ASPI-983 PO; -OMEP20CA13 PO; +OMEP20CA18 PO; +OXYB5TAB13 PO; -PANT40TA3 PO; +PANT40TA52 PO; +SIMV40TA25 PO; -SIMV40TA4 PO
--- NOTE | 2020-08-20 09:51 | Diagnostic Imaging Report ---
INDICATION: Right breast carcinoma. Correlation is made with prior mammogram from 09/13/2019 and 09/14/2018. 2-D and 3-D bilateral diagnostic mammography was performed with CAD. Both breasts remain heterogeneously dense, limiting the sensitivity of mammography. There are post-lumpectomy changes in the medial right breast. Mammogram appears stable. No mass or malignant appearing microcalcifications are seen. Axillae are unremarkable. IMPRESSION: BI-RADS Category 2 No mammographic features suspicious for malignancy are identified. ACR BI-RADS Category 2: Benign findings. Result letter will be mailed to the patient. Note: At least 10% of breast cancer is not imaged by mammography. Dictated by: Dictated on workstation # [id number]
== END ==
LOC: RAD 09:15
PROVIDERS: ATTEND Nurse Practitioner
DX: C50.911 Malignant neoplasm of unspecified site of right female breast (principal)
CPT/HCPCS: 77066; G0279; 77062

== ENCOUNTER → 2020-12-17 | Outpatient (CLI) | payer MEDICARE ==
--- NOTE | 2020-12-17 17:16 | Diagnostic Imaging Report ---
CT Lung Screening INDICATION: 02-qwqo-vnza history of smoking TECHNIQUE: Noncontrast, low-dose CT imaging performed according to the lung cancer screening protocol. Auto Exposure Controls were utilize during the CT exam to meet ALARA standards for radiation dose reduction. COMPARISON:07/28/2011 FINDINGS:Evaluation of the lung chow demonstrates branching density within the left upper lobe. This appears to be endobronchial in location (image 49, series 2). Similar lesion is identified in retrospect on exam dated 07/28/2011. The finding in question shows minimal interval increase in prevalence/size when compared to prior exam. At its widest, it measures 6 mm on today's study, in comparison to 5 mm previously. No new suspicious pulmonary nodule or mass is seen. There is no focal consolidation, large effusion, nor pneumothorax. Cardiomediastinal structures show normal heart size. There is no large pericardial effusion. There is mild prominence of the main pulmonary arterial trunk, as it measures 3.2 cm in diameter. No pathologically enlarged or morphologically abnormal adenopathy is seen within the mediastinum or lorelei on this noncontrast study. There is mild scattered calcified aortic atherosclerosis. Borderline prominent bilateral axillary lymph nodes are identified. These measure approximately 1.1 cm in shortest axis dimension (images 32 and 15, series 3). Osseous structures show no acute abnormalities. Age-related degenerative changes are present. Included portions of the upper abdomen show hypodense appearance of the liver suggestive of underlying hepatic steatosis. IMPRESSION: 1. Branching endobronchial density of the left apex. Minimal interval increase in size when compared to 07/28/2011 suggests benignity. Continued follow-up with annual low-dose CT chest is recommended. 2. Borderline bilateral axillary adenopathy of uncertain significance or etiology. 3. Slight prominence of the main pulmonary arterial trunk. Findings can be seen with underlying pulmonary arterial hypertension. 4. Hepatic steatosis. LUNG-RADS CATEGORY:2-S MODIFIER:As above OTHER SIGNIFICANT FINDINGS:As above Dictated by: Dictated on workstation # [id number]
== END ==
LOC: RAD 08:15
PROVIDERS: ATTEND Nurse Practitioner
DX: Z12.2 Encounter for screening for malignant neoplasm of respiratory organs (principal); J44.9 Chronic obstructive pulmonary disease, unspecified; K76.0 Fatty (change of) liver, not elsewhere classified; F17.210 Nicotine dependence, cigarettes, uncomplicated
CPT/HCPCS: 71271

== ENCOUNTER → 2021-02-13 | Outpatient (CLI) | payer MEDICARE | LOC: RT 13:00 | PROVIDERS: ATTEND Nurse Practitioner Family | DX: I51.7 Cardiomegaly (principal); J44.9 Chronic obstructive pulmonary disease, unspecified | CPT/HCPCS: 93306 ==

== ENCOUNTER → 2021-03-24 | Outpatient (CLI) | payer MEDICARE ==
[~2021-03-24] MED LIST changes: +RT-ALBUTEROL SULF 2.5 MG/3 ML PRE-MIX VIAL INH ONE
== END ==
LOC: RT 11:00
PROVIDERS: ATTEND Nurse Practitioner Family
DX: J44.9 Chronic obstructive pulmonary disease, unspecified (principal)
CPT/HCPCS: 94060; 94640; 94726; 94729

== ENCOUNTER → 2021-04-29 | Outpatient (CLI) | payer MEDICARE ==
[~2021-04-29] MED LIST changes: -RT-ALBUTEROL SULF 2.5 MG/3 ML PRE-MIX VIAL INH ONE
[2021-04-29 14:40] VITALS: BP 142/64
== END ==
LOC: CARD 14:00
PROVIDERS: ATTEND Internal Medicine Cardiovascular Disease
DX: I10 Essential (primary) hypertension (principal); I25.10 Atherosclerotic heart disease of native coronary artery without angina pectoris
CPT/HCPCS: 93351

== ENCOUNTER → 2021-09-22 | Outpatient (CLI) | payer MEDICARE ==
[~2021-09-22] MED LIST changes: +CYCL10TA25 PO; -CYCL10TA9 PO
--- NOTE | 2021-09-22 13:34 | Diagnostic Imaging Report ---
INDICATION: Postmenopausal. COMPARISON: None. FINDINGS: The bone mineral density of the spine, the hips, and the femoral necks was measured. The total T-score for the spine is -0.9. The total T-score for left hip is -0.4 and for the right -0.2. All of these values are within normal limits. However, the T-score for the left femoral neck is -1.2 and for the right -1.1. These values do indicate mild osteopenia. AP Spine L1-L4: [BMD (g/cm2): 1.097] [T-Score: -0.9] [Z-Score: -0.4] [BMD Previous: 0.996] [BMD % Change: 10.1] LT Hip Neck: [BMD (g/cm2): 0.870] [T-Score: -1.2] [Z-Score: -0.4] LT Hip Total: [BMD (g/cm2):0.956] [T-Score:-0.4] [Z-Score: 0.1] [BMD Previous: 1.114] [BMD % Change: -15.0] RT Hip Neck: [BMD (g/cm2):0.888] [T-Score:-1.1] [Z-Score:-0.3] RT Hip Total: [BMD (g/cm2):0.988] [T-score:-0.2] [Z-Score:0.3] [BMD Previous:1.074] [BMD % Change:-11.2] *Indicates significant change from prior examination based on 95% confidence level. World Health Organization criteria for BMD interpretation classify patients as Normal (T-score at or above -1.0), Osteopenic (T-score between -1.0 and -2.5) or Osteoporotic (T-score at or below -2.5). LIMITATIONS AND MODIFICATION: None. FRACTURE RISK (FRAX SCORE): The ten year probability of (%): Major Osteoporotic Fracture: [7.3] Hip Fracture: [1.1] IMPRESSION: 1. The bone mineral density of the spine and the hips is within normal limits. 2. There is mild osteopenia of the femoral necks. 3. See below National Osteoporosis Foundation guidelines on when to potentially initiate pharmacologic therapy. Based on the National Osteoporosis Foundation Guidelines, pharmacologic treatment should be initiated in any of the following, unless clinical conditions suggest otherwise: * Any patient with prior fragility fracture of the hip or vertebrae. A spine fracture indicates 5X risk for subsequent spine fracture and 2X risk for subsequent hip fracture. * Osteoporosis (T-score <-2.5). * Postmenopausal women and men age 50 and older with low bone mass/osteopenia (T-score between -1.0 and -2.5) by DXA and 10-year major osteoporotic fracture greater than 20% or a 10-year probability of hip fracture greater than 3%. These fracture risks are supplied above in the FRAX score, if applicable. * Clinician judgement and/or patient preferences may indicate treatment for people with 10-year fracture probabilities above or below these levels. Dictated by: Dictated on workstation # [id number]
== END ==
LOC: RAD 10:00
PROVIDERS: ATTEND Nurse Practitioner Family
DX: Z13.820 Encounter for screening for osteoporosis (principal); M85.88 Other specified disorders of bone density and structure, other site; Z78.0 Asymptomatic menopausal state
CPT/HCPCS: 77080

== ENCOUNTER 2022-02-17 05:51 | Outpatient (CLI) | payer MEDICARE ==
[~2022-02-17] VITALS: Ht 170.2 cm; Wt 130.6 kg
[~2022-02-17 05:51] MED LIST changes: -QUIN20TA16 PO; +QUIN20TA36 PO
[2022-02-17] MEDS ORDERED: MTP25TSR PO (10:02)
[2022-02-17] MEDS ORDERED: AMLO-250 PO (10:02)
[2022-02-17] MEDS ORDERED: BUDE10.2 IH (10:02)
[2022-02-17] MEDS ORDERED: MELO15TA39 PO (10:02)
[2022-02-17] MEDS ORDERED: CALC600T91 PO (10:02)
[2022-02-17] MEDS ORDERED: IPRA0.2S51 IH (10:05)
== END 2022-02-17 10:07 | disposition home or self-care (01) ==
LOC: PREOP 05:51
PROVIDERS: ATTEND Surgery
DX: Z01.818 Encounter for other preprocedural examination (principal)

== ENCOUNTER 2022-03-02 08:37 | Day surgery (SDC) | payer MEDICARE ==
[~2022-03-02] VITALS: Ht 170 cm; Wt 130.6 kg
[~2022-03-02 08:37] MED LIST changes: +AMLO-250 PO; +BUDE10.2 IH; +CALC600T91 PO; +IPRA0.2S51 IH; +MELO15TA39 PO; +MTP25TSR PO
[2022-03-02] MEDS ORDERED: LACTATED RINGERS 1,000 ML IV STA (08:43)
[2022-03-02] MEDS ORDERED: HURRICAINE EXT TUBE (BENZOCAINE) XX PRN (08:45)
[2022-03-02 08:55] VITALS: BP 148/63
--- NOTE | 2022-03-02 09:04 | Progress Note-Pre Operative ---
Pre-Operative Progress Note H&P Reviewed The H&P was reviewed, patient examined and no changes noted. Does not want to proceed with EGD. Does want to do colonoscopy. Date Seen by Provider: Mar 02, 2022 Time Seen by Provider: 09:02 Date H&P Reviewed: Mar 02, 2022 Time H&P Reviewed: 09:03 Pre-Operative Diagnosis: hx of polyp TITA STANFORD DO Mar 02, 2022 09:04
[2022-03-02] MEDS ORDERED: PROPOFOL INJECTION 50 ML IV ONE (10:26)
[2022-03-02 11:05] VITALS: BP 135/56
--- NOTE | 2022-03-02 11:05 | Anesthesia-General Post-Op ---
MAC Patient Condition Mental Status/LOC: Same as Preop Cardiovascular: Satisfactory Nausea/Vomiting: Absent Respiratory: Satisfactory Pain: Controlled Complications: Absent Post Op Complications Complications None Follow Up Care/Instructions Patient Instructions None needed. Anesthesiology Discharge Order Discharge Order Patient is doing well, no complaints, stable vital signs, no apparent adverse anesthesia problems. No complications reported per nursing. IRIS GILLILAND CRNA Mar 02, 2022 11:05
--- NOTE | 2022-03-02 11:08 | Progress Note-Post Operative ---
Post-Operative Progess Note Surgeon (s)/Communications Writer (s) Surgeon TITA STANFORD DO Communications Writer: na Pre-Operative Diagnosis hx of polyp Post-Operative Diagnosis colon polyps Procedure & Operative Findings Date of Procedure 03/02/22 Procedure Performed/Findings colonoscopy c hot bx polypectomy x 7 Anesthesia Type per surgical product sales consultant Estimated Blood Loss Estimated blood loss (mL): none Specimens/Packing Specimens Removed colon polyps TITA STANFORD DO Mar 02, 2022 11:08
[2022-03-02 11:10] VITALS: BP 164/72
--- NOTE | 2022-03-02 11:10 | Discharge Inst-Simple/Standard ---
Discharge Inst-Standard Patient Instructions/Follow Up Plan of Care/Instructions/FU: 2 weeks Zach Activity as Tolerated: Yes Discharge Diet: Regular Diet TITA STANFORD DO Mar 02, 2022 11:10
[2022-03-02 11:30] VITALS: BP 139/59
[2022-03-02 11:40] VITALS: BP 139/59
--- NOTE | 2022-03-02 21:17 | OPERATIVE REPORT ---
DATE OF SERVICE: 03/02/2022 PREOPERATIVE DIAGNOSIS: History of colon polyps. POSTOPERATIVE DIAGNOSIS: Colon polyps. PROCEDURE: Colonoscopy with hot biopsy polypectomy x7. SURGEON: Tita Serrano DO ANESTHESIA: Per TOUCHER UP. ESTIMATED BLOOD LOSS: None. COMPLICATIONS: None. INDICATIONS: The patient is a 66-year-old female with a history of colon polyps. She understands risks and benefits of procedure and wishes to proceed. Consent was signed in the chart. DESCRIPTION OF PROCEDURE: The patient was taken to the endoscopy suite, placed in left lateral recumbent position. Timeout was performed. Digital rectal exam was performed. No palpable polyps, masses or ulcerations. Scope was inserted in the rectum and advanced all the way to cecum with minimal difficulty. Prep was adequate. Scope was slowly retracted back; 3 polyps in the cecum, which hot biopsy polypectomy was performed. Scope was then continuously retracted back in the ascending colon, which hot biopsy polypectomy was performed. Scope was then continuously retracted back into the transverse colon where another 2 polyps were present, which hot biopsy polypectomy was performed. Scope was then continuously retracted back. No polyps, masses or ulcerations within the descending colon. In sigmoid colon, another small polyp was present, which hot biopsy polypectomy was performed. Scope was then slowly retracted back in the rectum, it was also retroflexed noting no other pathology. Scope was returned to its normal position, slowly withdrawn until completely removed. The patient tolerated procedure well without any complications. She was taken to recovery room in stable condition. RECOMMENDATIONS: The patient will need repeat colonoscopy in 5 years. Any issues before that will be seen at that time. The patient will follow up on pathology in 2 weeks. Job ID: [id number] DocumentID: [id number] Dictated Date: 03/02/2022 11:12:03 Spring Coiling Machine Setter Date: 03/02/2022 21:17:20 Dictated By: TITA SERRANO DO
== END 2022-03-02 11:40 | disposition home or self-care (01) ==
LOC: ENDO 08:37
PROVIDERS: ATTEND Surgery
DX: D12.0 Benign neoplasm of cecum (principal); D12.2 Benign neoplasm of ascending colon; D12.3 Benign neoplasm of transverse colon; D12.5 Benign neoplasm of sigmoid colon; F17.210 Nicotine dependence, cigarettes, uncomplicated; K29.50 Unspecified chronic gastritis without bleeding; E66.01 Morbid (severe) obesity due to excess calories; Z68.42 Body mass index [BMI] 45.0-49.9, adult

== ENCOUNTER 2022-07-09 09:41 | Outpatient (RCR) | payer MEDICARE ==
[~2022-07-09 09:41] MED LIST changes: +ALBU8.5H6 IH; -RT-ALBUINH IH
[2022-07-09 11:13] LABS: BASOPHILS % (AUTO) 0 % (0-10); EOSINOPHILS # (AUTO) 0.1 10^3/uL (0.0-0.3); EOSINOPHILS % (AUTO) 2 % (0-10); HEMATOCRIT 47 % (35-52); HEMOGLOBIN 15.6 g/dL (11.5-16.0); LYMPHOCYTES # (AUTO) 2.3 10^3/uL (1.0-4.0); LYMPHOCYTES % (AUTO) 29 % (12-44); MEAN CORPUSCULAR HEMOGLOBIN 32 pg (25-34); MEAN CORPUSCULAR HGB CONC 33 g/dL (32-36); MEAN CORPUSCULAR VOLUME 94 fL (80-99); MEAN PLATELET VOLUME 9.6 fL (9.0-12.2); MONOCYTES # (AUTO) 0.5 10^3/uL (0.0-1.0); MONOCYTES % (AUTO) 6 % (0-12); NEUTROPHILS # (AUTO) 4.9 10^3/uL (1.8-7.8); NEUTROPHILS % (AUTO) 62 % (42-75); PLATELET COUNT 191 10^3/uL (130-400); WHITE BLOOD COUNT 7.8 10^3/uL (4.3-11.0)
[2022-07-09 11:21] LABS: POTASSIUM 4.7 MMOL/L (3.6-5.0)
[2022-07-09 11:22] LABS: CALCIUM 10.8 MG/DL (8.5-10.1)
[2022-07-09 11:24] LABS: TOTAL PROTEIN 6.8 GM/DL (6.4-8.2)
[2022-07-09 11:25] LABS: BILIRUBIN,TOTAL 0.4 MG/DL (0.1-1.0)
[2022-07-09 11:27] LABS: CREATININE SERUM 0.74 MG/DL (0.60-1.30)
== END 2022-07-19 | disposition home or self-care (01) ==
LOC: ONC 09:41
PROVIDERS: ATTEND Internal Medicine Hematology & Oncology
DX: C50.912 Malignant neoplasm of unspecified site of left female breast (principal); C53.9 Malignant neoplasm of cervix uteri, unspecified; E11.9 Type 2 diabetes mellitus without complications; I10 Essential (primary) hypertension; E66.9 Obesity, unspecified; E78.00 Pure hypercholesterolemia, unspecified
CPT/HCPCS: 80053; 85025; 86300; G0463; 36415; 99204

== ENCOUNTER → 2022-07-29 | Outpatient (CLI) | payer MEDICARE ==
[2022-07-29 11:43] LABS: ALBUMIN 3.8 GM/DL (3.2-4.5)
[2022-07-29 13:24] LABS: CALCIUM 10.7 MG/DL (8.5-10.1); CREATININE SERUM 0.78 MG/DL (0.60-1.30); PHOSPHORUS 2.1 MG/DL (2.3-4.7); POTASSIUM 4.6 MMOL/L (3.6-5.0)
== END ==
LOC: LAB 10:46
PROVIDERS: ATTEND Nurse Practitioner Family
DX: E83.52 Hypercalcemia (principal)
CPT/HCPCS: 36415; 80069; 82340

== ENCOUNTER → 2022-08-05 | Outpatient (CLI) | payer MEDICARE, OTHER ==
--- NOTE | 2022-08-05 16:22 | Diagnostic Imaging Report ---
INDICATION: Hypercalcemia. TECHNIQUE: Patient was administered 22 mCi of technetium-99m sestamibi, and imaging over the neck and chest was performed at 20 minutes and 2 hours. FINDINGS: There is physiologic activity within the salivary glands and both lobes of the thyroid gland. There appears to be some washout of activity from the thyroid lobes on the delayed images. No definite focus of abnormal uptake is seen to suggest parathyroid adenoma. IMPRESSION: Unremarkable parathyroid scan. Dictated by: Dictated on workstation # [id number]
--- NOTE | 2022-08-05 16:23 | Diagnostic Imaging Report ---
PROCEDURE: US Thyroid. TECHNIQUE: Multiple real-time grayscale images were obtained of the thyroid in various projections. INDICATION: Hypercalcemia. FINDINGS: Right lobe of the thyroid measures 5.1 x 1.8 x 2.0 cm, and left lobe measures 4.4 x 1.4 x 1.6 cm. Isthmus is 3 mm in thickness. There is a dominant solid nodule with vascularity in the mid to upper portion of the right lobe measuring 2.7 x 1.7 x 1.7 cm. Left lobe contains two subcentimeter nodules, each 8-9 mm in size in the upper portion. No other masses are seen. IMPRESSION: Dominant solid nodule in the right lobe, TR 4. Fine-needle aspiration would be recommended. Dictated by: Dictated on workstation # [id number]
== END ==
LOC: RAD 11:09
PROVIDERS: ATTEND Nurse Practitioner Family
DX: E83.52 Hypercalcemia (principal); E04.1 Nontoxic single thyroid nodule
CPT/HCPCS: 76536; 78070; A9500

== ENCOUNTER → 2022-08-10 | Outpatient (CLI) | payer MEDICARE, OTHER ==
[~2022-08-10] MED LIST changes: +CATHETER FLUSH 10 ML SYR IV PRN; +HOLD METFORMIN - RECEIVED CONTRAST 20 ML VIAL IV SCH; +IOHEXOL 350 MG/ML 100 ML (OMNIPAQUE 350) VIAL IV ONE; +NS 100 ML (IVPB) BAG IV ONE
--- NOTE | 2022-08-10 10:46 | Diagnostic Imaging Report ---
EXAMINATION: CT chest, abdomen and pelvis with intravenous contrast. TECHNIQUE: Multiple contiguous axial images were obtained through the chest, abdomen and pelvis after the uneventful administration of intravenous contrast. All CT scans use one or more of the following dose optimizing techniques: automated exposure control, MA and/or KvP adjustment based on patient size and exam type or iterative reconstruction. HISTORY: Breast cancer. COMPARISON: 12/17/2020 FINDINGS: There is no edema or pneumonia. No pleural effusion. No pneumothorax. No suspicious nodules. There is mosaic perfusion in keeping with small vessels or small airways disease. There is no axillary or supraclavicular lymphadenopathy. There is no mediastinal lymphadenopathy. Heart size is normal. There are mild coronary artery calcifications. No pericardial effusion. Aorta is normal in caliber. The liver is normal without focal lesion. There is no biliary ductal dilation. Gallbladder contains stones. Pancreas is normal. Spleen is normal. There is a 2.4 x 2.8 cm indeterminate left adrenal nodule. Right adrenal gland is normal. Simple cyst is present in the right kidney. There is no hydronephrosis. Urinary bladder is normal. Bowel is normal in caliber without obstruction or inflammation. No free fluid or air. No abdominal or pelvic lymphadenopathy. Aorta is normal in caliber without aneurysm. There is a lytic lesion in T8. Lytic lesions also present T11 and L1. IMPRESSION: 1. Indeterminate left adrenal nodule. Adrenal protocol MRI recommended. 2. Lytic lesions in T8, T11 and L1. Dictated by: Dictated on workstation # [id number]
== END ==
LOC: RAD 10:15
PROVIDERS: ATTEND Internal Medicine Hematology & Oncology
DX: E27.8 Other specified disorders of adrenal gland (principal); C50.919 Malignant neoplasm of unspecified site of unspecified female breast; C53.9 Malignant neoplasm of cervix uteri, unspecified; G95.89 Other specified diseases of spinal cord
CPT/HCPCS: 71260; 74177

== ENCOUNTER → 2022-08-18 | Outpatient (RCR) | payer MEDICARE, OTHER ==
[~2022-08-18] MED LIST changes: -CATHETER FLUSH 10 ML SYR IV PRN; -HOLD METFORMIN - RECEIVED CONTRAST 20 ML VIAL IV SCH; -IOHEXOL 350 MG/ML 100 ML (OMNIPAQUE 350) VIAL IV ONE; -NS 100 ML (IVPB) BAG IV ONE
[2022-08-18 09:53] LABS: BASOPHILS % (AUTO) 0 % (0-10); EOSINOPHILS # (AUTO) 0.1 10^3/uL (0.0-0.3); EOSINOPHILS % (AUTO) 1 % (0-10); HEMATOCRIT 47 % (35-52); HEMOGLOBIN 15.4 g/dL (11.5-16.0); LYMPHOCYTES # (AUTO) 2.3 10^3/uL (1.0-4.0); LYMPHOCYTES % (AUTO) 31 % (12-44); MEAN CORPUSCULAR HEMOGLOBIN 32 pg (25-34); MEAN CORPUSCULAR HGB CONC 33 g/dL (32-36); MEAN CORPUSCULAR VOLUME 97 fL (80-99); MEAN PLATELET VOLUME 9.5 fL (9.0-12.2); MONOCYTES # (AUTO) 0.6 10^3/uL (0.0-1.0); MONOCYTES % (AUTO) 8 % (0-12); NEUTROPHILS # (AUTO) 4.5 10^3/uL (1.8-7.8); NEUTROPHILS % (AUTO) 60 % (42-75); PLATELET COUNT 191 10^3/uL (130-400); WHITE BLOOD COUNT 7.5 10^3/uL (4.3-11.0)
[2022-08-18 10:30] LABS: BILIRUBIN,TOTAL 0.5 MG/DL (0.1-1.0); CALCIUM 10.9 MG/DL (8.5-10.1); CREATININE SERUM 0.8 MG/DL (0.60-1.30); POTASSIUM 4.4 MMOL/L (3.6-5.0); TOTAL PROTEIN 6.9 GM/DL (6.4-8.2)
== END | disposition home or self-care (01) ==
LOC: ONC 08-05 09:58
PROVIDERS: ATTEND Internal Medicine Hematology & Oncology
DX: C50.912 Malignant neoplasm of unspecified site of left female breast (principal); C53.9 Malignant neoplasm of cervix uteri, unspecified; E11.9 Type 2 diabetes mellitus without complications; I10 Essential (primary) hypertension; E66.9 Obesity, unspecified; E78.00 Pure hypercholesterolemia, unspecified; Z90.710 Acquired absence of both cervix and uterus
CPT/HCPCS: 36415; 80053; 85025; 99213

== ENCOUNTER → 2022-08-26 | Outpatient (CLI) | payer MEDICARE ==
[~2022-08-26] VITALS: Ht 170.2 cm; Wt 128.6 kg
[~2022-08-26] MED LIST changes: +LIDOCAINE 1% INJ 30 ML (XYLOCAINE) VIAL INJ ONE
--- NOTE | 2022-08-26 14:38 | Diagnostic Imaging Report ---
INDICATION: Right lobe thyroid nodule. PROCEDURE: The patient presents for ultrasound-guided fine-needle aspiration Rotex biopsy. The patient was brought to the procedure room and placed on the table in the supine position. Ultrasound imaging of the neck was performed to evaluate appropriate entry site. The right neck was then prepped and draped in the usual sterile fashion. A small amount of 1% lidocaine was utilized for local anesthesia. A total of 4 passes were made into the dominant solid mass right lobe of the thyroid utilizing 25-gauge needles and fine needle aspiration technique. A single pass was made with a Rotex needle and Rotex biopsy was performed. Hemostasis was obtained. The patient tolerated the procedure well and left the department in stable condition. IMPRESSION: Successful ultrasound-guided fine-needle aspiration and Rotex biopsy of right lobe thyroid nodule. Pathology results are currently pending. Dictated by: Dictated on workstation # [id number]
== END ==
LOC: RAD 13:45
PROVIDERS: ATTEND Nurse Practitioner Family
DX: E04.1 Nontoxic single thyroid nodule (principal)
CPT/HCPCS: 10005

== ENCOUNTER → 2022-09-06 | Outpatient (CLI) | payer MEDICARE ==
[~2022-09-06] MED LIST changes: +GADOTERATE 0.5 MMOL/ML (CLARISCAN) 20 ML VIAL IV ONE; -LIDOCAINE 1% INJ 30 ML (XYLOCAINE) VIAL INJ ONE
== END ==
LOC: RAD 12:30
PROVIDERS: ATTEND Internal Medicine Hematology & Oncology
DX: C79.51 Secondary malignant neoplasm of bone (principal); C80.1 Malignant (primary) neoplasm, unspecified

== ENCOUNTER → 2022-09-16 | Outpatient (CLI) | payer MEDICARE ==
[~2022-09-16] MED LIST changes: -GADOTERATE 0.5 MMOL/ML (CLARISCAN) 20 ML VIAL IV ONE
[2022-09-16 14:07] LABS: ALBUMIN 3.8 GM/DL (3.2-4.5); CALCIUM 10.9 MG/DL (8.5-10.1); CREATININE SERUM 0.8 MG/DL (0.60-1.30); PHOSPHORUS 2.4 MG/DL (2.3-4.7); POTASSIUM 4.3 MMOL/L (3.6-5.0)
[2022-09-16 14:30] LABS: FREE T4 (FREE THYROXINE) 0.94 NG/DL (0.70-1.48)
== END ==
LOC: LAB 13:12
PROVIDERS: ATTEND Nurse Practitioner Family
DX: E83.52 Hypercalcemia (principal); E04.1 Nontoxic single thyroid nodule
CPT/HCPCS: 36415; 80069; 82306; 83970; 84439; 84443

== ENCOUNTER 2022-09-17 13:09 | Outpatient (RCR) | payer MEDICARE, OTHER ==
[2022-08-19 15:52] LABS: PROTHROMBIN TIME PATIENT 13.6 SEC (12.2-14.7)
[~2022-09-17 13:09] MED LIST changes: +morphine INJ 4 MG/ML 1 ML (VIAL/SYRINGE) IVP ONE; +morphine INJ 4 MG/ML 1 ML (VIAL/SYRINGE) ONE
== END 2022-09-18 | disposition home or self-care (01) ==
LOC: ONC 13:09
PROVIDERS: ATTEND Internal Medicine Hematology & Oncology
DX: Z51.0 Encounter for antineoplastic radiation therapy (principal); C50.912 Malignant neoplasm of unspecified site of left female breast; C53.9 Malignant neoplasm of cervix uteri, unspecified; E11.9 Type 2 diabetes mellitus without complications; I10 Essential (primary) hypertension; E66.9 Obesity, unspecified; E78.00 Pure hypercholesterolemia, unspecified; Z90.710 Acquired absence of both cervix and uterus
CPT/HCPCS: 36415; 77280; 77290; 77307; 77334; 77336; 77417; 85610; 85730; 96375; 99205; 99213

== ENCOUNTER → 2022-09-17 | Outpatient (CLI) | payer MEDICARE | LOC: RAD 13:37 | PROVIDERS: ATTEND Nurse Practitioner Family | DX: Z12.31 Encounter for screening mammogram for malignant neoplasm of breast (principal) | CPT/HCPCS: 77063; 77067 ==

== ENCOUNTER → 2022-10-13 | Outpatient (CLI) | payer MEDICARE, OTHER ==
[~2022-10-13] MED LIST changes: -morphine INJ 4 MG/ML 1 ML (VIAL/SYRINGE) IVP ONE; -morphine INJ 4 MG/ML 1 ML (VIAL/SYRINGE) ONE
--- NOTE | 2022-10-13 12:55 | Diagnostic Imaging Report ---
Indication: Circumscribed density upper outer left breast on recent screening study. Study performed for further evaluation. Correlation is made with recent screening mammogram from 09/17/2022. Sonographic interrogation upper outer left breast was performed. There are 2 cysts in the upper outer left breast 1:00 location, 8 to 9 cm from the nipple. Largest measures 6 mm x 3 mm x 5 mm. 2nd cyst measures approximately 2 mm x 3 mm. No solid lesions are seen. These likely account for the mammographic density. IMPRESSION: BI-RADS Category 2 Simple cyst upper outer left breast, corresponding to the mammographic densities. The patient may return to routine annual screening mammography. ACR BI-RADS Category 2: Benign findings. Dictated by: Dictated on workstation # [id number]
== END ==
LOC: RAD 08:47
PROVIDERS: ATTEND Internal Medicine Hematology & Oncology
DX: N60.02 Solitary cyst of left breast (principal)
CPT/HCPCS: 76641

== ENCOUNTER 2022-10-15 09:02 | Outpatient (RCR) | payer MEDICARE, OTHER ==
[2022-10-15] MEDS ORDERED: FULVESTRANT 250 MG/5 ML (FASLODEX) IM SCH (10:30)
== END 2022-10-19 | disposition home or self-care (01) ==
LOC: ONC 09:02
PROVIDERS: ATTEND Internal Medicine Hematology & Oncology
DX: C50.912 Malignant neoplasm of unspecified site of left female breast (principal); C53.9 Malignant neoplasm of cervix uteri, unspecified; C79.51 Secondary malignant neoplasm of bone; E11.9 Type 2 diabetes mellitus without complications; I10 Essential (primary) hypertension; E66.9 Obesity, unspecified; E78.00 Pure hypercholesterolemia, unspecified; E83.52 Hypercalcemia; G89.29 Other chronic pain; E04.1 Nontoxic single thyroid nodule; Z72.0 Tobacco use; Z90.710 Acquired absence of both cervix and uterus
CPT/HCPCS: 77412; G0463; 93005; 96402; 99213

== ENCOUNTER → 2022-10-15 | Outpatient (CLI) | payer MEDICARE ==
[2022-10-15 10:05] LABS: ALBUMIN 3.6 GM/DL (3.2-4.5); CALCIUM 10.7 MG/DL (8.5-10.1); CREATININE SERUM 0.78 MG/DL (0.60-1.30); PHOSPHORUS 3.3 MG/DL (2.3-4.7); POTASSIUM 4.3 MMOL/L (3.6-5.0)
== END ==
LOC: LAB 09:17
PROVIDERS: ATTEND Nurse Practitioner Family
DX: E83.52 Hypercalcemia (principal)
CPT/HCPCS: 36415; 80069; 82306

== ENCOUNTER 2022-11-11 13:54 | Outpatient (RCR) | payer MEDICARE, OTHER ==
[~2022-11-11 13:54] MED LIST changes: +FULVESTRANT 250 MG/5 ML (FASLODEX) IM SCH
== END 2022-11-16 | disposition home or self-care (01) ==
LOC: ONC 13:54
PROVIDERS: ATTEND Internal Medicine Hematology & Oncology
DX: C50.912 Malignant neoplasm of unspecified site of left female breast (principal); C53.9 Malignant neoplasm of cervix uteri, unspecified; C79.51 Secondary malignant neoplasm of bone; E11.9 Type 2 diabetes mellitus without complications; I10 Essential (primary) hypertension; E78.00 Pure hypercholesterolemia, unspecified
CPT/HCPCS: 96402

== ENCOUNTER → 2022-11-19 | Outpatient (CLI) | payer MEDICARE, OTHER ==
[~2022-11-19] MED LIST changes: -FULVESTRANT 250 MG/5 ML (FASLODEX) IM SCH; +GADOTERATE 0.5 MMOL/ML (CLARISCAN) 20 ML VIAL IV ONE
--- NOTE | 2022-11-19 15:43 | Diagnostic Imaging Report ---
PROCEDURE: MR imaging of the brain with and without contrast. TECHNIQUE: Multiplanar, multisequence MR imaging of the brain was performed with and without contrast. INDICATION: Breast carcinoma. FINDINGS: The ventricles and sulci are within normal limits. No sulcal effacement or midline shift is identified. There is no diffusion restriction identified. The normal expected flow-voids within the carotid siphons are seen. No acute intra-axial or extra-axial hemorrhage is detected. The corpus callosum is unremarkable. The sella and parasellar structures are unremarkable. No abnormal enhancement is identified following contrast administration. IMPRESSION: Unremarkable pre and post contrast MRI of the brain. There is no evidence of intracranial metastatic disease. Dictated by: Dictated on workstation # [id number]
== END ==
LOC: RAD 14:34
PROVIDERS: ATTEND Internal Medicine Hematology & Oncology
DX: C50.919 Malignant neoplasm of unspecified site of unspecified female breast (principal); C79.51 Secondary malignant neoplasm of bone
CPT/HCPCS: 70553

== ENCOUNTER 2022-12-09 14:06 | Outpatient (RCR) | payer MEDICARE, OTHER ==
[2022-11-24 14:52] LABS: BASOPHILS % (AUTO) 0 % (0-10); EOSINOPHILS % (AUTO) 0 % (0-10); HEMATOCRIT 41 % (35-52); HEMOGLOBIN 13.6 g/dL (11.5-16.0); LYMPHOCYTES # (AUTO) 0.9 10^3/uL (1.0-4.0); LYMPHOCYTES % (AUTO) 18 % (12-44); MEAN CORPUSCULAR HEMOGLOBIN 33 pg (25-34); MEAN CORPUSCULAR HGB CONC 34 g/dL (32-36); MEAN CORPUSCULAR VOLUME 97 fL (80-99); MEAN PLATELET VOLUME 10.1 fL (9.0-12.2); MONOCYTES # (AUTO) 0.5 10^3/uL (0.0-1.0); MONOCYTES % (AUTO) 11 % (0-12); NEUTROPHILS # (AUTO) 3.5 10^3/uL (1.8-7.8); NEUTROPHILS % (AUTO) 70 % (42-75); PLATELET COUNT 160 10^3/uL (130-400); WHITE BLOOD COUNT 4.9 10^3/uL (4.3-11.0)
[2022-11-24 15:11] LABS: ALBUMIN 3.4 GM/DL (3.2-4.5); BILIRUBIN,TOTAL 0.6 MG/DL (0.1-1.0); CALCIUM 11.2 MG/DL (8.5-10.1); CREATININE SERUM 0.71 MG/DL (0.60-1.30); POTASSIUM 4.2 MMOL/L (3.6-5.0); TOTAL PROTEIN 6.6 GM/DL (6.4-8.2)
[~2022-12-09 14:06] MED LIST changes: +DENOSUMAB 120 MG/1.7 ML (XGEVA) SQ SCH; +FULVESTRANT 250 MG/5 ML (FASLODEX) IM SCH; -GADOTERATE 0.5 MMOL/ML (CLARISCAN) 20 ML VIAL IV ONE; -INSU100I29; -INSU100I29 SQ; +INSU100I30; +INSU100I30 SQ
[2022-12-09 14:24] LABS: BASOPHILS % (AUTO) 0 % (0-10); EOSINOPHILS % (AUTO) 1 % (0-10); HEMOGLOBIN 14.5 g/dL (11.5-16.0); MEAN CORPUSCULAR VOLUME 99 fL (80-99); MONOCYTES # (AUTO) 0.4 10^3/uL (0.0-1.0)
[2022-12-09 14:26] LABS: HEMATOCRIT 43 % (35-52); LYMPHOCYTES # (AUTO) 1.1 10^3/uL (1.0-4.0); LYMPHOCYTES % (AUTO) 27 % (12-44); MEAN CORPUSCULAR HEMOGLOBIN 34 pg (25-34); MEAN CORPUSCULAR HGB CONC 34 g/dL (32-36); MONOCYTES % (AUTO) 10 % (0-12); NEUTROPHILS # (AUTO) 2.7 10^3/uL (1.8-7.8); NEUTROPHILS % (AUTO) 63 % (42-75); PLATELET COUNT 130 10^3/uL (130-400); WHITE BLOOD COUNT 4.3 10^3/uL (4.3-11.0)
[2022-12-09 14:33] LABS: ALBUMIN 3.6 GM/DL (3.2-4.5); POTASSIUM 4.6 MMOL/L (3.6-5.0)
[2022-12-09 14:35] LABS: TOTAL PROTEIN 6.3 GM/DL (6.4-8.2)
[2022-12-09 14:37] LABS: BILIRUBIN,TOTAL 0.6 MG/DL (0.1-1.0)
[2022-12-09 14:39] LABS: CREATININE SERUM 0.64 MG/DL (0.60-1.30)
== END 2022-12-17 | disposition home or self-care (01) ==
LOC: ONC 14:06
PROVIDERS: ATTEND Internal Medicine Hematology & Oncology
DX: C50.819 Malignant neoplasm of overlapping sites of unspecified female breast (principal); C53.8 Malignant neoplasm of overlapping sites of cervix uteri; C79.51 Secondary malignant neoplasm of bone; D64.9 Anemia, unspecified; E11.9 Type 2 diabetes mellitus without complications; I10 Essential (primary) hypertension
CPT/HCPCS: 36415; 80053; 85025; 96372

== ENCOUNTER 2023-01-06 14:26 | Outpatient (RCR) | payer MEDICARE, OTHER ==
[2023-01-06 15:06] LABS: BASOPHILS % (AUTO) 0 % (0-10); EOSINOPHILS % (AUTO) 1 % (0-10); HEMATOCRIT 42 % (35-52); HEMOGLOBIN 14.1 g/dL (11.5-16.0); LYMPHOCYTES # (AUTO) 1.1 10^3/uL (1.0-4.0); LYMPHOCYTES % (AUTO) 21 % (12-44); MEAN CORPUSCULAR HEMOGLOBIN 33 pg (25-34); MEAN CORPUSCULAR HGB CONC 34 g/dL (32-36); MEAN CORPUSCULAR VOLUME 99 fL (80-99); MEAN PLATELET VOLUME 10.7 fL (9.0-12.2); MONOCYTES # (AUTO) 0.5 10^3/uL (0.0-1.0); MONOCYTES % (AUTO) 9 % (0-12); NEUTROPHILS # (AUTO) 3.4 10^3/uL (1.8-7.8); NEUTROPHILS % (AUTO) 69 % (42-75); PLATELET COUNT 128 10^3/uL (130-400); WHITE BLOOD COUNT 4.9 10^3/uL (4.3-11.0)
[2023-01-06 15:24] LABS: ALBUMIN 3.7 GM/DL (3.2-4.5); BILIRUBIN,TOTAL 0.6 MG/DL (0.1-1.0); CALCIUM 10.2 MG/DL (8.5-10.1); CREATININE SERUM 0.7 MG/DL (0.60-1.30); POTASSIUM 4.3 MMOL/L (3.6-5.0); TOTAL PROTEIN 6.4 GM/DL (6.4-8.2)
== END 2023-01-16 | disposition home or self-care (01) ==
LOC: ONC 14:26
PROVIDERS: ATTEND Internal Medicine Hematology & Oncology
DX: Z51.11 Encounter for antineoplastic chemotherapy (principal); C50.812 Malignant neoplasm of overlapping sites of left female breast; C53.8 Malignant neoplasm of overlapping sites of cervix uteri; C79.51 Secondary malignant neoplasm of bone; D64.9 Anemia, unspecified; E11.9 Type 2 diabetes mellitus without complications; I10 Essential (primary) hypertension; E66.9 Obesity, unspecified; E83.52 Hypercalcemia
CPT/HCPCS: 36415; 80053; 85025; 96402

== ENCOUNTER → 2023-02-16 | Outpatient (RCR) | payer MEDICARE, OTHER ==
[2023-02-03 15:19] LABS: BASOPHILS % (AUTO) 1 % (0-10); LYMPHOCYTES % (AUTO) 30 % (12-44); MEAN CORPUSCULAR VOLUME 100 fL (80-99)
[2023-02-03 15:21] LABS: EOSINOPHILS % (AUTO) 1 % (0-10); HEMATOCRIT 43 % (35-52); HEMOGLOBIN 14.2 g/dL (11.5-16.0); LYMPHOCYTES # (AUTO) 1.2 10^3/uL (1.0-4.0); MEAN CORPUSCULAR HEMOGLOBIN 33 pg (25-34); MEAN CORPUSCULAR HGB CONC 33 g/dL (32-36); MONOCYTES # (AUTO) 0.4 10^3/uL (0.0-1.0); MONOCYTES % (AUTO) 9 % (0-12); NEUTROPHILS # (AUTO) 2.5 10^3/uL (1.8-7.8); NEUTROPHILS % (AUTO) 60 % (42-75); PLATELET COUNT 127 10^3/uL (130-400); WHITE BLOOD COUNT 4.1 10^3/uL (4.3-11.0)
[2023-02-03 15:56] LABS: ALBUMIN 3.7 GM/DL (3.2-4.5); BILIRUBIN,TOTAL 0.6 MG/DL (0.1-1.0); CALCIUM 10.4 MG/DL (8.5-10.1); CREATININE SERUM 0.71 MG/DL (0.60-1.30); POTASSIUM 4.4 MMOL/L (3.6-5.0); TOTAL PROTEIN 6.2 GM/DL (6.4-8.2)
== END | disposition home or self-care (01) ==
LOC: ONC 02-03 15:00
PROVIDERS: ATTEND Internal Medicine Hematology & Oncology
DX: C50.912 Malignant neoplasm of unspecified site of left female breast (principal); C79.51 Secondary malignant neoplasm of bone; C53.9 Malignant neoplasm of cervix uteri, unspecified; D64.9 Anemia, unspecified; E11.9 Type 2 diabetes mellitus without complications; I10 Essential (primary) hypertension; E66.9 Obesity, unspecified; E83.52 Hypercalcemia; E78.00 Pure hypercholesterolemia, unspecified
CPT/HCPCS: 36415; 80053; 85025; 96372

== ENCOUNTER 2023-03-03 14:26 | Outpatient (RCR) | payer MEDICARE, OTHER ==
[~2023-03-03 14:26] MED LIST changes: -DENOSUMAB 120 MG/1.7 ML (XGEVA) SQ SCH
[2023-03-03 14:40] LABS: MEAN CORPUSCULAR HEMOGLOBIN 34 pg (25-34); MEAN CORPUSCULAR HGB CONC 34 g/dL (32-36); MEAN CORPUSCULAR VOLUME 102 fL (80-99); MONOCYTES # (AUTO) 0.4 10^3/uL (0.0-1.0)
[2023-03-03 14:42] LABS: BASOPHILS % (AUTO) 0 % (0-10); EOSINOPHILS % (AUTO) 1 % (0-10); HEMATOCRIT 41 % (35-52); HEMOGLOBIN 13.6 g/dL (11.5-16.0); LYMPHOCYTES # (AUTO) 1.3 10^3/uL (1.0-4.0); LYMPHOCYTES % (AUTO) 27 % (12-44); MEAN PLATELET VOLUME 10.3 fL (9.0-12.2); MONOCYTES % (AUTO) 8 % (0-12); NEUTROPHILS # (AUTO) 3.1 10^3/uL (1.8-7.8); NEUTROPHILS % (AUTO) 65 % (42-75); PLATELET COUNT 120 10^3/uL (130-400); WHITE BLOOD COUNT 4.8 10^3/uL (4.3-11.0)
[2023-03-03 15:07] LABS: ALBUMIN 3.6 GM/DL (3.2-4.5); BILIRUBIN,TOTAL 0.6 MG/DL (0.1-1.0); CALCIUM 9.9 MG/DL (8.5-10.1); CREATININE SERUM 0.66 MG/DL (0.60-1.30); POTASSIUM 4.1 MMOL/L (3.6-5.0)
== END 2023-03-18 | disposition home or self-care (01) ==
LOC: ONC 14:26
PROVIDERS: ATTEND Internal Medicine Hematology & Oncology
DX: Z51.11 Encounter for antineoplastic chemotherapy (principal); C50.912 Malignant neoplasm of unspecified site of left female breast; C79.51 Secondary malignant neoplasm of bone; D64.9 Anemia, unspecified; E11.9 Type 2 diabetes mellitus without complications; I10 Essential (primary) hypertension; E66.9 Obesity, unspecified; E83.52 Hypercalcemia; E78.00 Pure hypercholesterolemia, unspecified; Z92.3 Personal history of irradiation; Z85.41 Personal history of malignant neoplasm of cervix uteri; Z90.710 Acquired absence of both cervix and uterus
CPT/HCPCS: 36415; 80053; 85025; 96402

== ENCOUNTER 2023-03-31 14:24 | Outpatient (RCR) | payer MEDICARE, OTHER ==
[2023-03-31 14:50] LABS: EOSINOPHILS # (AUTO) 0.1 10^3/uL (0.0-0.3); EOSINOPHILS % (AUTO) 1 % (0-10); HEMATOCRIT 41 % (35-52); MEAN CORPUSCULAR VOLUME 102 fL (80-99)
[2023-03-31 14:52] LABS: BASOPHILS % (AUTO) 0 % (0-10); HEMOGLOBIN 13.8 g/dL (11.5-16.0); LYMPHOCYTES # (AUTO) 1.3 10^3/uL (1.0-4.0); LYMPHOCYTES % (AUTO) 29 % (12-44); MEAN CORPUSCULAR HEMOGLOBIN 35 pg (25-34); MEAN CORPUSCULAR HGB CONC 34 g/dL (32-36); MEAN PLATELET VOLUME 10.3 fL (9.0-12.2); MONOCYTES # (AUTO) 0.3 10^3/uL (0.0-1.0); MONOCYTES % (AUTO) 7 % (0-12); NEUTROPHILS # (AUTO) 2.8 10^3/uL (1.8-7.8); NEUTROPHILS % (AUTO) 62 % (42-75); PLATELET COUNT 108 10^3/uL (130-400); WHITE BLOOD COUNT 4.5 10^3/uL (4.3-11.0)
[2023-03-31 15:13] LABS: ALBUMIN 3.8 GM/DL (3.2-4.5); BILIRUBIN,TOTAL 0.5 MG/DL (0.1-1.0); CALCIUM 10.8 MG/DL (8.5-10.1); CREATININE SERUM 0.78 MG/DL (0.60-1.30); POTASSIUM 4.6 MMOL/L (3.6-5.0); TOTAL PROTEIN 6.1 GM/DL (6.4-8.2)
== END 2023-04-18 | disposition home or self-care (01) ==
LOC: ONC 14:24
PROVIDERS: ATTEND Internal Medicine Hematology & Oncology
DX: C50.912 Malignant neoplasm of unspecified site of left female breast (principal); C79.51 Secondary malignant neoplasm of bone; D64.9 Anemia, unspecified; E11.9 Type 2 diabetes mellitus without complications; I10 Essential (primary) hypertension; E66.9 Obesity, unspecified; E83.52 Hypercalcemia; E78.00 Pure hypercholesterolemia, unspecified; Z85.41 Personal history of malignant neoplasm of cervix uteri
CPT/HCPCS: 36415; 80053; 85025; 96402

== ENCOUNTER 2023-05-02 13:14 | Emergency (ER) | payer MEDICARE ==
[~2023-05-02] VITALS: Ht 170.1 cm; Wt 100.6 kg
[~2023-05-02 13:14] MED LIST changes: -HOLD METFORMIN - RECEIVED CONTRAST 20 ML VIAL IV SCH; -IOHEXOL 350 MG/ML 100 ML (OMNIPAQUE 350) VIAL IV ONE; -NS 100 ML (IVPB) BAG IV ONE
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
[2023-05-02] MEDS ORDERED: Tetanus/Diphtheria/Pertussis (Acell) ADULT Vaccine 0.5 ML IM ONE (13:30)
[2023-05-02] MEDS ORDERED: IOHEXOL 350 MG/ML 100 ML (OMNIPAQUE 350) VIAL IV ONE (13:30)
[2023-05-02] MEDS ORDERED: morphine IMMEDIATE RELEASE 15 MG TABLET PO ONE (13:30)
[2023-05-02] MEDS ORDERED: HOLD METFORMIN - RECEIVED CONTRAST 20 ML VIAL IV SCH (13:30)
[2023-05-02] MEDS ORDERED: NS 100 ML (IVPB) BAG IV ONE (13:30)
--- NOTE | 2023-05-02 14:12 | Diagnostic Imaging Report ---
PROCEDURE: CT head and CT cervical spine without contrast. TECHNIQUE: Multiple contiguous axial images were obtained through the brain and cervical spine without the use of intravenous contrast. Sagittal and coronal reformations through the cervical spine were then performed. Auto Exposure Controls were utilized during the CT exam to meet ALARA standards for radiation dose reduction. INDICATION: Headache and neck pain after fall COMPARISON: Brain MRI on 11/19/2022. FINDINGS: No acute intracranial hemorrhage. No intracranial mass or fluid collection. The barrientos-white matter differentiation is preserved. Scattered calcifications of intrathecal vasculature. No midline shift or mass effect. Ventricles and cortical sulci are normal. The ossicles are intact. The paranasal sinuses and mastoids are clear. The globes and orbits are intact. There is straightening of the cervical lordosis. No acute fracture or dislocation of the cervical spine. Moderate multilevel disc height loss and disc desiccation. Mild multilevel facet arthritis. No acute fracture or dislocation of the cervical spine. Sclerotic density within the clivus and at T1 vertebral body, and right T2 rib. IMPRESSION: No acute intracranial hemorrhage. No large vascular territory dodson-white loss. No intracranial mass, midline shift, or hydrocephalus. No acute fracture or dislocation of the cervical spine. Sclerotic lesion within the clivus and T1 vertebral body and right T2 rib may represent metastatic lesions particularly given the patient's history of breast cancer. Consider PET scan for further workup. Dictated by: Dictated on workstation # [id number]
--- NOTE | 2023-05-02 14:25 | Diagnostic Imaging Report ---
PROCEDURE: CT chest, abdomen, and pelvis with contrast. TECHNIQUE: Multiple contiguous axial images were obtained through the chest, abdomen, and pelvis after the administration of intravenous contrast. Auto Exposure Controls were utilized during the CT exam to meet ALARA standards for radiation dose reduction. INDICATION: Trauma. COMPARISON: 08/10/2022. FINDINGS: There is mild groundglass density throughout the lungs with areas of mosaic air trapping. A discrete mass or focal infiltrate is not seen. There is no significant pleural or pericardial fluid. There is no pathologically enlarged adenopathy in the chest. Surgical findings are present in the right breast. There has been development of speckled sclerotic lesions within numerous thoracic vertebrae. In addition, there has been development of significant sclerosis about lower thoracic vertebrae, some of which demonstrated lytic appearance on the previous study. Below the diaphragm, there is no evidence of focal hepatic or splenic lesion. Gallstones are again noted in the gallbladder lumen. Right adrenal gland has a normal appearance with solid nodule in the left adrenal gland, now measuring 3.4 x 2.4 cm. Dominant cyst in the upper pole of the right kidney is again noted. There is no evidence of solid renal mass. No free fluid is seen. There is no evidence of pathologically enlarged adenopathy. There are additional sclerotic foci present within lumbar spine and pelvic girdle. IMPRESSION: No definite acute abnormalities identified, however there has been increase in numerous sclerotic foci within the spine and pelvic girdle. This is compatible with progressive osseous metastatic disease. Please see separately dictated thoracic and lumbar spine report. There is persistent left adrenal gland nodule. While this is nonspecific, imaging characteristics are most suggestive of adrenal gland adenoma. This can be further evaluated on follow-up exam. Dictated by: Dictated on workstation # [id number]
--- NOTE | 2023-05-02 14:25 | Diagnostic Imaging Report ---
PROCEDURE: CT thoracic and lumbar spine without contrast. TECHNIQUE: Multiple contiguous axial images were obtained through the thoracic and lumbar spine without the use of intravenous contrast. Sagittal and coronal reformations were then performed. All CT scans use one or more of the following dose optimizing techniques: automated exposure control, MA and/or KvP adjustment based on a patient size and exam type, or iterative reconstruction. INDICATION: Back pain COMPARISON: CT of the head and cervical spine on same day. CT of the thoracic spine 2017. FINDINGS: Diffuse osseous metastatic disease with innumerable sclerotic lesions throughout the visualized skeletal structures and associated pathologic compression fracture of T8 vertebral body with 70% height loss. No fracture identified within the lumbar spine. Mild multilevel disc height loss and disc desiccation. No high density fluid within the spinal canal. Mild multilevel spinal canal and neuroforaminal stenosis. Visualized soft tissues demonstrate a left adrenal mass measuring 2.4 cm and a few calcified gallstones as well as a partially imaged small right renal cyst. IMPRESSION: Diffuse osseous metastatic disease with multiple sclerotic lesions and pathologic compression fracture of T8 with 70% height loss. No fracture of the lumbar spine. Left adrenal mass. Dictated by: Dictated on workstation # [id number]
[2023-05-02 14:42] VITALS: BP 112/60
== END 2023-05-02 14:44 | disposition home or self-care (01) ==
LOC: EDUNIT# 13:14 → ER 13:16
DX: S22.068A Other fracture of T7-T8 thoracic vertebra, initial encounter for closed fracture (principal); S51.011A Laceration without foreign body of right elbow, initial encounter; C79.51 Secondary malignant neoplasm of bone; M54.50 Low back pain, unspecified; R10.10 Upper abdominal pain, unspecified; E66.01 Morbid (severe) obesity due to excess calories; E11.9 Type 2 diabetes mellitus without complications; Z68.34 Body mass index [BMI] 34.0-34.9, adult; Z79.4 Long term (current) use of insulin; Z23 Encounter for immunization; W01.0XXA Fall on same level from slipping, tripping and stumbling without subsequent striking against object, initial encounter; Y93.01 Activity, walking, marching and hiking
CPT/HCPCS: 70450; 71260; 72125; 72128; 72131; 74177; 90715

== ENCOUNTER → 2023-05-02 | Outpatient (CLI) | payer MEDICARE, OTHER ==
[~2023-05-02] MED LIST changes: -FULVESTRANT 250 MG/5 ML (FASLODEX) IM SCH; +HOLD METFORMIN - RECEIVED CONTRAST 20 ML VIAL IV SCH; +IOHEXOL 350 MG/ML 100 ML (OMNIPAQUE 350) VIAL IV ONE; +NS 100 ML (IVPB) BAG IV ONE
== END ==
LOC: RAD 13:00
PROVIDERS: ATTEND Internal Medicine Hematology & Oncology
DX: C79.51 Secondary malignant neoplasm of bone (principal); Z53.9 Procedure and treatment not carried out, unspecified reason

== ENCOUNTER → 2023-05-19 | Outpatient (RCR) | payer MEDICARE, OTHER ==
[~2023-05-19] MED LIST changes: +DENOSUMAB 120 MG/1.7 ML (XGEVA) SQ SCH; +FULVESTRANT 250 MG/5 ML (FASLODEX) IM SCH
== END | disposition still patient (30) ==
LOC: ONC 04-28 13:49
PROVIDERS: ATTEND Internal Medicine Hematology & Oncology
DX: Z51.11 Encounter for antineoplastic chemotherapy (principal); C50.912 Malignant neoplasm of unspecified site of left female breast; C79.51 Secondary malignant neoplasm of bone; C53.9 Malignant neoplasm of cervix uteri, unspecified; D64.9 Anemia, unspecified; E11.9 Type 2 diabetes mellitus without complications; I10 Essential (primary) hypertension; E66.9 Obesity, unspecified; D69.6 Thrombocytopenia, unspecified; E83.52 Hypercalcemia; E78.00 Pure hypercholesterolemia, unspecified
CPT/HCPCS: 96402; 96372; G0463; 99213; 99214

== ENCOUNTER 2023-05-27 16:19 | Emergency (ER) | payer MEDICARE ==
[~2023-05-27 16:19] MED LIST changes: -DENOSUMAB 120 MG/1.7 ML (XGEVA) SQ SCH; -FULVESTRANT 250 MG/5 ML (FASLODEX) IM SCH
[2023-05-27 16:27] VITALS: BP 118/52
[2023-05-27] MEDS ORDERED: OXYMETAZOLINE 0.05% NASAL SPRAY 30 ML BTL ONE (16:44)
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
[2023-05-27 16:51] LABS: HEMOGLOBIN 12.8 g/dL (11.5-16.0); LYMPHOCYTES % (AUTO) 30 % (12-44); MEAN CORPUSCULAR VOLUME 104 fL (80-99)
[2023-05-27 16:53] LABS: BASOPHILS % (AUTO) 1 % (0-10); EOSINOPHILS % (AUTO) 1 % (0-10); HEMATOCRIT 38 % (35-52); LYMPHOCYTES # (AUTO) 1.3 10^3/uL (1.0-4.0); MEAN CORPUSCULAR HEMOGLOBIN 35 pg (25-34); MEAN CORPUSCULAR HGB CONC 34 g/dL (32-36); MEAN PLATELET VOLUME 10.1 fL (9.0-12.2); MONOCYTES # (AUTO) 0.3 10^3/uL (0.0-1.0); MONOCYTES % (AUTO) 8 % (0-12); NEUTROPHILS # (AUTO) 2.6 10^3/uL (1.8-7.8); NEUTROPHILS % (AUTO) 61 % (42-75); PLATELET COUNT 105 10^3/uL (130-400); WHITE BLOOD COUNT 4.3 10^3/uL (4.3-11.0)
[2023-05-27 17:01] LABS: PROTHROMBIN TIME PATIENT 13.5 SEC (12.2-14.7)
[2023-05-27 17:05] LABS: ALBUMIN 3.9 GM/DL (3.2-4.5); BILIRUBIN,TOTAL 0.6 MG/DL (0.1-1.0); CALCIUM 10.3 MG/DL (8.5-10.1); CREATININE SERUM 0.76 MG/DL (0.60-1.30); POTASSIUM 4.3 MMOL/L (3.6-5.0); TOTAL PROTEIN 6.4 GM/DL (6.4-8.2)
[2023-05-27] MEDS ORDERED: OXYMETAZOLINE 0.05% NASAL SPRAY 30 ML BTL SCH (21:00)
== END 2023-05-27 17:46 | disposition home or self-care (01) ==
LOC: EDUNIT# 16:19 → ER 16:20
DX: R04.0 Epistaxis (principal); C41.2 Malignant neoplasm of vertebral column; F17.210 Nicotine dependence, cigarettes, uncomplicated; E11.9 Type 2 diabetes mellitus without complications; E66.01 Morbid (severe) obesity due to excess calories; Z68.34 Body mass index [BMI] 34.0-34.9, adult; Z79.4 Long term (current) use of insulin; Z79.82 Long term (current) use of aspirin; Z92.21 Personal history of antineoplastic chemotherapy; Z92.3 Personal history of irradiation
CPT/HCPCS: 36415; 80053; 85025; 85610; 85730

== ENCOUNTER 2023-06-23 13:54 | Outpatient (RCR) | payer MEDICARE, OTHER ==
[~2023-06-23 13:54] MED LIST changes: +DENOSUMAB 120 MG/1.7 ML (XGEVA) SQ SCH; +FULVESTRANT 250 MG/5 ML (FASLODEX) IM SCH; -OXYB5TAB13 PO; +OXYB5TAB14 PO
== END 2023-07-19 | disposition home or self-care (01) ==
LOC: ONC 13:54
PROVIDERS: ATTEND Internal Medicine Hematology & Oncology
DX: Z51.11 Encounter for antineoplastic chemotherapy (principal); L72.3 Sebaceous cyst; E11.9 Type 2 diabetes mellitus without complications; I10 Essential (primary) hypertension; D64.9 Anemia, unspecified; E66.9 Obesity, unspecified; E83.52 Hypercalcemia; E78.00 Pure hypercholesterolemia, unspecified
CPT/HCPCS: 96402

== ENCOUNTER → 2023-08-18 | Outpatient (RCR) | payer MEDICARE, OTHER ==
[2023-08-04 14:15] LABS: BASOPHILS % (AUTO) 0 % (0-10); EOSINOPHILS % (AUTO) 1 % (0-10); HEMATOCRIT 33 % (35-52); HEMOGLOBIN 11.1 g/dL (11.5-16.0); LYMPHOCYTES # (AUTO) 1.3 10^3/uL (1.0-4.0); LYMPHOCYTES % (AUTO) 32 % (12-44); MEAN CORPUSCULAR HEMOGLOBIN 37 pg (25-34); MEAN CORPUSCULAR HGB CONC 34 g/dL (32-36); MEAN CORPUSCULAR VOLUME 109 fL (80-99); MEAN PLATELET VOLUME 9.8 fL (9.0-12.2); MONOCYTES # (AUTO) 0.3 10^3/uL (0.0-1.0); MONOCYTES % (AUTO) 8 % (0-12); NEUTROPHILS # (AUTO) 2.5 10^3/uL (1.8-7.8); NEUTROPHILS % (AUTO) 59 % (42-75); PLATELET COUNT 83 10^3/uL (130-400); WHITE BLOOD COUNT 4.3 10^3/uL (4.3-11.0)
[2023-08-04 14:34] LABS: ALBUMIN 3.8 GM/DL (3.2-4.5); BILIRUBIN,TOTAL 0.4 MG/DL (0.1-1.0); CALCIUM 10.1 MG/DL (8.5-10.1); CREATININE SERUM 0.66 MG/DL (0.60-1.30); POTASSIUM 4.4 MMOL/L (3.6-5.0); TOTAL PROTEIN 6.2 GM/DL (6.4-8.2)
== END | disposition home or self-care (01) ==
LOC: ONC 07-20 12:57
PROVIDERS: ATTEND Internal Medicine Hematology & Oncology
DX: Z51.11 Encounter for antineoplastic chemotherapy (principal); L72.3 Sebaceous cyst; E11.9 Type 2 diabetes mellitus without complications; I10 Essential (primary) hypertension; D64.9 Anemia, unspecified; E66.9 Obesity, unspecified; E83.52 Hypercalcemia; E78.00 Pure hypercholesterolemia, unspecified
CPT/HCPCS: 36415; 80053; 85025; 96372; 96402